=== PATIENT | male | born 1960 | race Caucasian/White ===

== ENCOUNTER 2019-02-17 17:35 | Inpatient (IN) ==
[~2019-02-17 17:35] MED LIST: *HR* Magnesium Sulfate 2 GM/50 ML PIGGYBACK IVPB ONE; *HR* Norepinephrine 4 MG/4 ML VIAL IVC ONE; D5% in Water 250 ML IV BAG IV ONE; Lidocaine 2% Syringe 100 MG/5 ML IV ONE
[2019-02-17] MEDS ORDERED: Aspirin 81 MG TAB.CHEW ONE (18:04)
[2019-02-17] MEDS ORDERED: *HR* Heparin 5,000 UNIT/ML VIAL ONE (18:04)
[2019-02-17] MEDS ORDERED: *HR* Ticagrelor 90 MG TABLET ONE (18:04)
[2019-02-17] MEDS ORDERED: 0.9 % Sodium Chloride 1,000 ML ONE ×2 (18:05→23:07)
[2019-02-17] MEDS ORDERED: Heparin 1,000 UNITS/500 mL 500 ML ONE (18:16)
[2019-02-17] MEDS ORDERED: 0.9 % Sodium Chloride 2,000 ML ONE (18:16)
[2019-02-17] MEDS ORDERED: Iopamidol 125 ML INFUS..BTL ONE (18:17)
[2019-02-17] MEDS ORDERED: Nitroglycerin 1,000 MCG/10 ML VIAL IV ONE (18:17)
[2019-02-17] MEDS ORDERED: *HR* Heparin 10,000 UNIT/10 ML VIAL ONE (18:17)
[2019-02-17] MEDS ORDERED: *HR* Ticagrelor 90 MG TABLET PO ONE (18:20)
[2019-02-17] MEDS ORDERED: *HR* Heparin 5,000 UNIT/ML VIAL IVP PRN ×2 (18:20)
[2019-02-17] MEDS ORDERED: *HR* Heparin 5,000 UNIT/ML VIAL IVP ONE (18:20)
--- NOTE | 2019-02-17 18:23 | Emergency Department Note ---
Disposition Clinical Impression: ST elevation myocardial infarction (STEMI) Qualifiers: Involved coronary artery: right coronary artery Qualified Code(s): I21.11 - ST elevation (STEMI) myocardial infarction involving right coronary artery Disposition: Admitted As Inpatient Condition: Serious Time of Disposition: 18:25 General Adult HPI - General Chief complaint: ED Chest Pain Stated complaint: Chest Pressure Time Seen by Provider: 02/17/19 18:11 Source: patient Mode of arrival: private vehicle Limitations: no limitations Nursing Notes Reviewed: Yes Vital Signs Reviewed: Yes - History of Present Illness HPI Narrative: 58-year-old male with a past medical history of diabetes, hypertension, hyperlipidemia that states he started to have chest pain starting when he woke up this morning at 10:30 in the morning. He states it did not wake him from sleep he noticed it when he woke up. He describes the pain as bilateral chest pain in the upper part of his chest with radiation into his left arm. Patient states he then went to work. While he was at work coworkers report that he has passed out approximately 4 times. Patient also reports some nausea and some lightheadedness. He also describes some episodes of diaphoresis. Patient has never had a heart attack before. Patient does have a history of a stroke in 2012. gave him [address] to the hospital. Patient states his chest was about 5 out of 10 in severity, but states that his pain seems to have gotten better since he has been here. Pain Scale: 0 - Related Data Home Medications Medication Instructions Recorded Confirmed Amlodipine Besylate 10 mg PO DAILY 02/17/19 02/17/19 Aspirin [Lo-Dose Aspirin EC] 81 mg PO DAILY 02/17/19 02/17/19 Cinnamon Bark [Cinnamon] 500 mg PO DAILY 02/17/19 02/17/19 Dapagliflozin Propanediol [Farxiga] 5 mg PO DAILY 02/17/19 02/17/19 Dulaglutide [Trulicity] 1.5 mg SQ MO 02/17/19 02/17/19 Losartan Potassium 50 - 100 mg PO DAILY 02/17/19 02/17/19 Metformin HCl [Metformin HCl ER] 1,000 mg PO DAILY 02/17/19 02/17/19 Metoprolol Succinate [Toprol Xl] 25 mg PO DAILY 02/17/19 02/17/19 [place]-3/Dha/Epa/Fish Oil [Fish Oil 1 cap PO DAILY 02/17/19 02/17/19 1,000 mg Softgel] Rosuvastatin Calcium 10 mg PO HS 02/17/19 02/17/19 Allergies Allergy/AdvReac Type Severity Reaction Status Date / Time No Known Allergies Allergy Verified 02/17/19 21:13 Review of Systems: In addition to that documented in the HPI above, the additional ROS was obtained: Constitutional: Denies fevers or chills Eyes: Denies vision changes ENMT: Denies sore throat CV: Reports chest pain Resp: Reports SOB GI: Denies vomiting or diarrhea Reports nausea : Denies painful urination MSK: Denies recent trauma Skin: Denies new rashes Neuro: Denies new numbness or tingling or weakness Reports lightheadedness Endocrine: Denies unexpected weight loss Heme: Denies bleeding disorders Past Medical History - Past Medical History Attestation: Yes The following information was validated with the patient. Medical history: Reports: CVA, diabetes, hyperlipidemia, hypertension - Social History Smoking Status: Never smoker Alcohol use: Reports: none Drug use: Reports: none Physical Exam General: No acute distress. Well developed, well nourished. Head: atraumatic, normocephalic. ENT: No conjunctival injection, no scleral icterus. PERRLA. EOMI. Oropharynx non- erythematous. mucous membranes moist. Neuro: No focal deficits, no speech deficit, no facial droop, mentating well. BUE/BLE Str 5/5. Pulm: Lungs CTAB A/P. No wheezes, rales, ronchi. Cardio: RRR no m/r/g. Chest not tender to palpation. Abd: Soft, non-distended. Normoactive bowel sounds. Non-tender to palpation. No guarding. Non rigid. Extremities: Radial pulses 2+ giacomo, dorsalis pedis/posterior tibialis 2+ giacomo. No LE edema. No cyanosis, clubbing. Skin: warm, dry, intact. No rashes. Psych: Appropriate mood and affect. Answers questions appropriately. Cooperative with exam. - General Limitations: no limitations General appearance: alert Course Vital Signs Temperature 98 F 02/17/19 17:53 Pulse Rate 87 02/17/19 17:53 Respiratory Rate 18 02/17/19 17:53 Blood Pressure 156/80 02/17/19 17:53 O2 Sat by Pulse Oximetry 99 02/17/19 17:53 Temperature 98.3 F 02/17/19 23:20 Pulse Rate 68 02/18/19 00:45 Respiratory Rate 21 02/18/19 00:45 Blood Pressure 119/71 02/18/19 00:45 O2 Sat by Pulse Oximetry 127 02/18/19 00:45 Oxygen Delivery Oxygen Delivery Room Air Medical Decision Making - MDM Narrative Medical decision making narrative: 58-year-old male with past medical history of high cholesterol, hypertension, previous CVA that reports chest pain that started when he woke up this morning at 10:30 in the morning. He reports 4 episodes of syncope throughout the day. EKG is concerning for inferior ST elevation SD. STEMI alert was called and Special Education Paraprofessional was activated. I spoke with Dr. Summers who agreed to come in and evaluate the patient for stenting. Patient received 2 aspirin en route to the hospital, he was given 2 additional baby aspirin, he was given Brlinta, heparin. Nitrogly cerin was specifically avoided. Patient was taken emergently to the Special Education Paraprofessional. He remained stable while in the department. - Medical Records Medical records reviewed: Yes I reviewed the patient's medical records. - Lab Data Lab results reviewed: Yes I reviewed the patient's lab results. Result diagrams: 02/17/19 17:53 02/17/19 17:53 Lab Results 02/17/19 02/17/19 02/17/19 Range/Units 17:53 17:53 17:53 WBC 9.6 (4.3-11.1) K/mcL RBC 4.91 (4.19-5.50) M/mcL Hgb 13.4 (12.9-16.9) g/dL Hct 40.7 (37.5-50.1) % MCV 82.9 L (83.0-100.0) fL MCH 27.3 L (28.0-33.3) pg MCHC 32.9 (31.6-35.5) g/dL RDW 12.7 (11.5-14.5) % Plt Count 272 (140-400) K/mcL MPV 11.2 (9.4-12.4) fL Immature Gran % 0.3 (0-4) % Seg Neutrophils % 77.3 % Lymphocytes % 14.3 % Monocytes % 6.6 % Eosinophils % 1.1 % Basophils % 0.4 % Neutrophils # 7.4 (1.6-8.9) K/mcL Lymphocytes # 1.4 (0.6-4.6) K/mcL Monocytes # 0.6 (0.0-1.3) K/mcL Eosinophils # 0.1 (0.0-0.6) K/mcL Basophils # 0.0 (0.0-0.2) K/mcL PT 11.9 (9.4-12.1) Seconds INR 1.0 APTT 31.7 (26.0-36.0) Seconds Sodium 137 (136-145) mEq/L Potassium 3.3 L (3.5-5.1) mEq/L Chloride 105 (98-107) mEq/L Carbon Dioxide 25 (23-29) mEq/L BUN 24 H (6-20) mg/dL Creatinine 1.04 (0.70-1.30) mg/dL Est GFR ( Amer) > 60 (> 60) Est GFR (Non-Af Amer) > 60 (> 60) BUN/Creatinine Ratio 23 (6-26) Glucose 223 H (70-105) mg/dL Calculated Osmolality 295 (280-300) Calcium 9.5 (8.6-10.3) mg/dL Magnesium 1.9 (1.6-2.6) mg/dL Troponin I 0.03 (< 0.04) ng/mL - EKG Data EKG #1 EKG attestation: Yes I reviewed and interpreted this EKG. EKG results narrative: 1748: Heart rate 82, rhythm sinus, axis normal. W[place] 170, QRS 1:30 and prolonged, QTc 463. RSR pattern in lead V1 and V2 with prolongation of QRS is consistent with right bundle branch block. ST segment elevation in 2, 3, aVF with ST depression in lead 1, aVL. This is consistent with STEMI and was called as a STEMI with activation of the laboratory manager. Attestation Statement - Attestation Attestation: I, Junior Landaverde, examined this patient and my medical decision-making was reviewed with the PERSONAL FINANCIAL ADVISOR/PA/Advanced Practice Nurse/Resident Physician. I agree with the documented findings, disposition and treatment plan as described except to the extent set forth below. 58-year-old male presents emergency Department with concerns of an acute onset chest pain. Patient states his pain is worse with exertion, he reports syncopized prior to arrival. He reports associated nausea and diaphoresis. EKG shows likely inferior STEMI. STEMI alert was initiated. I reviewed the EKG with the resident and agree with the interpretation. Delay in interventional cardiology response to the STEMI alert was noted. Patient was given aspirin, Brillinta, heparin 4 STEMI and he will be taken to the Special Education Paraprofessional for further care and evaluation.
[2019-02-17] MEDS ORDERED: Aspirin 81 MG TAB.CHEW PO ONE (18:27)
[2019-02-17] MEDS: 0.9 % Sodium Chloride 1,000 ML IVC SCH (18:29)
[2019-02-17 18:32] LABS: Basophils % 0.4 %; Eosinophils # 0.1 K/mcL (0.0-0.6); Eosinophils % 1.1 %; Hematocrit 40.7 % (37.5-50.1); Hemoglobin 13.4 g/dL (12.9-16.9); Immature Granulocytes % 0.3 % (0-4); Lymphocytes # 1.4 K/mcL (0.6-4.6); Lymphocytes % 14.3 %; Mean Corpuscular HGB Conc 32.9 g/dL (31.6-35.5); Mean Corpuscular Hemoglobin 27.3 pg (28.0-33.3); Mean Corpuscular Volume 82.9 fL (83.0-100.0); Mean Platelet Volume 11.2 fL (9.4-12.4); Monocytes # 0.6 K/mcL (0.0-1.3); Monocytes % 6.6 %; Neutrophils # 7.4 K/mcL (1.6-8.9); Platelet Count 272 K/mcL (140-400); Red Blood Count 4.91 M/mcL (4.19-5.50); Red Cell Distribution Width 12.7 % (11.5-14.5); Segmented Neutrophils % 77.3 %; White Blood Count 9.6 K/mcL (4.3-11.1)
[2019-02-17 18:41] LABS: Prothrombin Time 11.9 Seconds (9.4-12.1)
[2019-02-17] MEDS ORDERED: *HR* Atropine Sulfate 1 MG/10 ML SYRINGE ONE ×3 (18:43→23:07)
[2019-02-17 18:44] LABS: Activated Partial Thrombo Time 31.7 Seconds (26.0-36.0)
[2019-02-17] MEDS ORDERED: *HR* FentaNYL (PF) 100 MCG/2 ML VIAL ONE (18:50)
[2019-02-17] MEDS ORDERED: *HR* Midazolam HCl 2 MG/2 ML VIAL ONE ×2 (18:50→19:00)
[2019-02-17 18:54] LABS: BUN/Creatinine Ratio 23 (6-26); Blood Urea Nitrogen 24 mg/dL (6-20); Calcium 9.5 mg/dL (8.6-10.3); Carbon Dioxide 25 mEq/L (23-29); Chloride 105 mEq/L (98-107); Glucose 223 mg/dL (70-105); Magnesium 1.9 mg/dL (1.6-2.6); Osmolality,Calculated 295 (280-300); Potassium 3.3 mEq/L (3.5-5.1); Sodium 137 mEq/L (136-145); Troponin I 0.03 ng/mL (< 0.04); eGFR For African Americans > 60 (> 60); eGFR For Non-African Americans > 60 (> 60)
[2019-02-17] MEDS ORDERED: Tirofiban 12.5 MG/250ML 12.5 MG/250 ML BAG ONE (19:07)
--- NOTE | 2019-02-17 20:04 | Cardiology History & Physical ---
Date of Encounter: 02/17/19 Time of Encounter: 18:45 Assessment and Plan (1) Acute ST elevation myocardial infarction (STEMI) of inferior wall Current Visit: Yes Status: Acute Acute. Emergent cardiac catheterization. The assessment and plan as outlined above was discussed with the patient and/or family members who expressed understanding and agreement. All questions were answered. (2) Diabetes mellitus Current Visit: Yes Status: Acute Chronic. Hospitalist consultation. The assessment and plan as outlined above was discussed with the patient and/or family members who expressed understanding and agreement. All questions were answered. 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 The assessment and plan as outlined above was discussed with the patient and/or family members who expressed understanding and agreement. All questions were answered. Qualifiers: Hypertension type: essential hypertension Qualified Code(s): I10 - Essential (primary) hypertension (4) Hyperlipidemia Current Visit: Yes Status: Chronic Chronic. Check lipids. The assessment and plan as outlined above was discussed with the patient and/or family members who expressed understanding and agreement. All questions were answered. Qualifiers: Hyperlipidemia type: mixed hyperlipidemia Qualified Code(s): E78.2 - Mixed hyperlipidemia History of Present Illness Chief complaint: Chest pain HPI: Mr. Wilde is a 58 year old male with past medical history of diabetes mellitus, hypertension and dyslipidemia who presented with complaints of chest discomfort. He describes onset of chest heaviness around 10:30 this morning. He describes it as a ton of bricks. He had associated diaphoresis. He went to work around 3 PM. He apparently passed out. He was brought to the emergency room ECG was consistent with acute inferior wall STEMI. He denies any prior complaints chest discomfort. Past Med Surg Social Fam HX - Past Medical History Medical history: CVA, diabetes, hyperlipidemia, hypertension - Social History Smoking Status: Never smoker Alcohol use: none Drug use: none Medications and Allergies Allergy/AdvReac Type Severity Reaction Status Date / Time No Known Allergies Allergy Verified 02/17/19 18:00 All Systems Review: The remainder of the systems were reviewed and are negative - Cardiovascular Cardiovascular: as per HPI Physical Examination Vital Signs, Last 4 Hours Temp Pulse Resp BP Pulse Ox 02/17/19 18:30 91 18 128/81 99 02/17/19 18:23 80 18 130/75 98 02/17/19 18:13 85 18 130/83 99 02/17/19 17:59 82 18 135/72 99 02/17/19 17:53 98 F 87 18 156/80 99 General: Conversant, No Apparent Distress HEENT: Atraumatic, Normocephaly, Mucus Membranes Moist Neck: No JVD, Normal carotid pulses Cardiac: Reg Rate and Rhythm, Normal S1 and S2, No Murmur Lungs: Normal Breath Sounds, No Wheeze, Rales, Rhonchi Neuro: Alert and responsive, No focal deficits noted Abdomen: Soft, Non-Tender Musculoskeletal: No Chest Wall Tenderness Extremities: No Clubbing, No Cyanosis, No Edema, Normal Pulses Results 02/17/19 17:53 02/17/19 17:53 Lab Results 02/17/19 02/17/19 02/17/19 17:53 17:53 17:53 WBC 9.6 Hgb 13.4 Hct 40.7 Plt Count 272 INR 1.0 APTT 31.7 Sodium 137 Potassium 3.3 L Chloride 105 Carbon Dioxide 25 BUN 24 H Creatinine 1.04 Glucose 223 H Calcium 9.5 Magnesium 1.9 Troponin I 0.03 - EKG Interpretation EKG results cardiology: personally reviewed, sinus rhythm (Sinus rhythm, ST elevation in lead 2, lead 3, lead aVF consistent with inferior STEMI) [facility] - Classification Classification: Class 4
--- NOTE | 2019-02-17 20:19 | Invasive Diagnostic Lab Proc ---
Name: Caesar Wilde Date of Study: 02/17/2019 Date: 1960 Ht: 68.1in Medical Record#: [id number] Age: 58 Wt: 250.00lb Gender: Male BSA: 2.25 Order #: [id number] BMI: 37.89 Physicians Procedure Physician: Caesar Summers MD Referring MD: Referring MD: Staff Name Position Time In Abigail, Francisco RN Monitor 06:35 PM Jasmien Benitez RN Doorperson 06:35 PM Rafa Jimenez RT (R) Scrub 06:35 PM Indications Indication STEMI Procedures Performed Procedure L HRT ARTERY/VENTRICLE ANGIO PRQ CARD REVASC KS 1 VSL Pre-Procedure Checklist Informed consent is complete signed and on chart. H&P is on chart. ID band is on and ID verified with patient. Patient NPO for procedure The procedure was described for the patient and questions were answered. Blood Pressure: 134/75 ECG is on chart. Rhythm: NSR Plan of Care Patient will tolerate the procedure without complications. Adequate level of comfort will be maintained. Hemodynamics will remain stable Patient will recover from procedure without complications. Respiratory function will be maintained. Cardiac rhythm will remain stable. Patient temperature will be maintained. Patient and/or family have verbalized understanding of the procedure. Patient Education Chief Complaint/Reason for Test: Cardiac Cath Developmental Category: Adult (18-64 years) Developmentally Appropriate for Age: Yes Learning Barriers: None Education Needs: Procedure Education Method: Verbal Information Taught: Cardiac Cath Educational Evaluation: Able to repeat information Intravenous Access Time IV Size Location DC'd Fluid/Drip Rate Units RN 18g 1 1/4" Patent On Arrival Rt Arm Jasmine Benitez RN 20g 1 1/4" Patent On Arrival Lt Arm 0.9NaCl Jasmine Benitez RN Allergies NO KNOWN ALLERGIES Vital Signs Time BP (mmHg) HR (bpm) O2 Sat. RR (bpm) LOC 06:42 PM / % 5 = Fully awake and oriented or at pre-proc level 06:42 PM / % 4 = Oriented but drowsy 06:58 PM / % 4 = Oriented but drowsy 07:14 PM / % 4 = Oriented but drowsy 06:44 PM 154 / 97 86 100 % 23 06:49 PM 152 / 91 82 100 % 26 06:54 PM 142 / 92 88 97 % 18 06:59 PM 137 / 93 91 97 % 20 07:04 PM 138 / 94 97 98 % 15 07:10 PM 122 / 84 105 93 % 16 07:14 PM 122 / 83 99 97 % 17 07:19 PM 119 / 80 97 99 % 18 07:24 PM 121 / 81 95 99 % 11 07:29 PM 127 / 87 96 100 % 15 07:34 PM 133 / 87 97 100 % Procedural Medications Time Medication Dose Units Method Given By 06:42 PM Oxygen 2 L/min nasal cannula Francisco Hayes RN 06:49 PM Lidocaine 2% 18 ml Subcutaneous Caesar Summers MD 06:51 PM Versed 2 mg Intravenous Jasmine Benitez RN 06:51 PM Fentanyl 50 mcg Intravenous Jasmine Benitez RN 07:01 PM Versed 1 mg Intravenous Jasmine Benitez RN 07:01 PM Fentanyl 50 mcg Intravenous Jasmine Benitez RN 07:01 PM Heparin 4000 units Intravenous Jasmine Benitez RN 07:03 PM Oxygen 4 L/min nasal cannula Jasmine Benitez RN 07:07 PM Aggrastat Bolus: 58 ml Intravenous Jasmine Benitez RN 07:09 PM Aggrastat 12.5mg/250ml 21 ml/hr Intravenous Jasmine Benitez RN 07:09 PM Atropine 1 mg Intravenous Jasmine Benitez RN ASA Classification: Emergent Procedure: ASA score is assumed Leo Score Preprocedure Postprocedure Activity 2- Moves 4 extremities sustained head lift Activity 2- Moves 4 extremities sustained head lift Circulation 2- SBP +/= 20 points of pre-anesthetic level Circulation 2- SBP +/= 20 points of pre-anesthetic level Consciousness 2- Awake and alert oriented x 3 Consciousness 2- Awake and alert oriented x 3 O2 Saturation 2- Able to maintain O2 satruation of 92% on room air O2 Saturation 2- Able to maintain O2 satruation of 92% on room air Respiratory 2- Able to deep breathe and cough well Respiratory 2- Able to deep breathe and cough well Total Score 10 Total Score 10 Contrast Agent: Isovue Diagnostic Contrast: 107 ml Total Contrast: 107 ml Fluoro Dose: 99 mGy Activated Clotting Time Time Seconds to Clot 07:00 PM 178 07:36 PM 07:36 PM 07:36 PM 07:36 PM 07:36 PM 07:36 PM 07:36 PM 07:36 PM 07:36 PM 07:36 PM 07:36 PM 07:36 PM 07:36 PM 07:36 PM 07:36 PM 07:36 PM 07:36 PM 07:36 PM 07:36 PM 07:36 PM 07:36 PM 07:36 PM 07:36 PM 07:36 PM 07:36 PM 07:36 PM 07:36 PM 07:36 PM 07:36 PM 07:36 PM 07:36 PM 07:36 PM 07:36 PM 07:36 PM 07:36 PM 07:36 PM 07:36 PM 07:36 PM 07:36 PM 07:36 PM 07:36 PM 07:36 PM 07:36 PM 07:36 PM 07:36 PM 07:36 PM 07:36 PM 07:36 PM 07:36 PM 07:36 PM 07:36 PM 07:36 PM 07:36 PM 07:36 PM 07:36 PM 07:36 PM 07:36 PM 07:36 PM 07:36 PM 07:36 PM 07:36 PM 07:36 PM 07:36 PM 07:36 PM 07:36 PM 07:36 PM 07:36 PM 07:36 PM 07:36 PM 07:36 PM 07:36 PM 07:36 PM 07:36 PM 07:36 PM 07:36 PM 07:36 PM 07:36 PM 07:36 PM 07:36 PM 07:36 PM 07:36 PM 07:36 PM 07:36 PM 07:36 PM 07:36 PM 07:36 PM 07:36 PM 07:36 PM 07:36 PM 07:36 PM 07:36 PM 07:36 PM 07:36 PM 07:36 PM 07:36 PM 07:36 PM 07:36 PM 07:36 PM 07:36 PM 07:36 PM 07:36 PM 07:36 PM 07:36 PM 07:36 PM 07:36 PM 07:36 PM 07:36 PM 07:36 PM 07:36 PM 07:36 PM 07:36 PM 07:36 PM 07:36 PM 07:36 PM 07:36 PM 07:36 PM 07:36 PM 07:36 PM 07:36 PM 07:36 PM 07:36 PM 07:36 PM 07:36 PM 07:36 PM 07:36 PM 07:36 PM 07:36 PM 07:36 PM 07:36 PM 07:36 PM 07:36 PM 07:36 PM 07:36 PM 07:36 PM 07:36 PM 07:36 PM 07:36 PM 07:36 PM 07:36 PM 07:36 PM 07:36 PM 07:36 PM 07:36 PM 07:36 PM 07:36 PM 07:36 PM 07:36 PM 07:36 PM 07:36 PM 07:36 PM 07:36 PM 07:36 PM 07:36 PM 07:36 PM 07:36 PM 07:36 PM 07:36 PM 07:36 PM 07:36 PM 07:36 PM 07:36 PM 07:36 PM 07:36 PM 07:36 PM 07:36 PM 07:36 PM 07:36 PM 07:36 PM 07:36 PM 07:36 PM 07:36 PM 07:36 PM 07:36 PM 07:36 PM 07:36 PM 07:36 PM 07:36 PM 07:36 PM 07:36 PM 07:36 PM 07:36 PM 07:36 PM 07:36 PM 07:36 PM 07:36 PM 07:36 PM 07:36 PM 07:36 PM 07:36 PM 07:36 PM 07:36 PM 07:36 PM 07:36 PM 07:36 PM 07:36 PM 07:36 PM 07:36 PM 07:36 PM 07:36 PM 07:36 PM 07:36 PM 07:36 PM 07:36 PM 07:36 PM 07:36 PM 07:36 PM 07:36 PM 07:36 PM 07:36 PM 07:36 PM 07:36 PM 07:36 PM 07:36 PM 07:36 PM 07:36 PM 07:36 PM 07:36 PM 07:36 PM 07:36 PM 07:36 PM 07:36 PM 07:36 PM 07:36 PM 07:36 PM 07:36 PM 07:36 PM 07:36 PM 07:36 PM 07:36 PM 07:36 PM 07:36 PM 07:36 PM 07:36 PM 07:36 PM 07:36 PM 07:36 PM 07:36 PM 07:36 PM 07:36 PM 07:36 PM 07:36 PM 07:36 PM 07:36 PM 07:36 PM 07:36 PM Procedure Log Time Note Enter By 06:35 PM 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 Informed consent was obtained. [facility] :42 PM Procedure start 18:42 [facility] :42 PM Time: 18:42 Oxygen on at 2 L/min per nasal cannula by Francisco Hayes RN [facility] :42 PM Time: 18:42LOC: 5 = Fully awake and oriented or at pre-proc level [facility] 06:43 PM Time: 18:43 Patient comfortable and pain free: Yes [facility] PM CathStat 06:43 PM Vitals capture started with the following parameters, Patient=Adult, Interval=5 min, Initial Acjuygqz=440 mmHg, Deflation Rate=3 mmHg, Cuff placed on Right Arm 06:44 PM Pressure channel 1 zeroed. 06:44 PM Recorded ECG: WN=213 Condition=Condition 1 06:44 PM HR=86 bpm, KXAZ=221/97 mmhg, UfH9=425.0 %, Resp=23 B/min, Comment=nsr 06:49 PM HR=82 bpm, KPTH=714/91 mmhg, MgJ2=909.0 %, Resp=26 B/min, Comment=nsr 06:49 PM Time out was performed according to hospital policy. Conscious sedation and anesthesia was achieved (see medication log with in this report above) [facility] 06:50 PM Time: 18:49 18 ml Lidocaine 2% to right groin Subcutaneous Given by [facility] Summers [facility] 06[facility]51 PM Micro-Introducer Kit utilized for sheath placement [facility] 06:51 PM Time: 18:51 Versed 2 mg Intravenous Given by Jasmine Benitez RN naya 06:51 PM Time: 18:51 Fentanyl 50 mcg Intravenous Given by Jasmine Benitez RN [facility] 06:54 PM HR=88 bpm, GYSU=407/92 mmhg, SpO2=97.0 %, Resp=18 B/min, Comment=nsr 06:56 PM .014 Amplatz SuperStiff 180cm guide wire across target lesion- successful. reused? No [email or web address] 06:56 PM Inflation device was opened. [email or web address] 06:56 PM wire removed [email or web address] 06:57 PM 0.035 180cm Glidewire-Stiff shaft wire [id number] jcallihan 06:57 PM Access obtained by percutaneous puncture. 6Fr 10cm Terumo [place] sheath placed in right Femoral artery. [id number] jcallihan 06:57 PM j-wire re-inserted jcallihan 06:58 PM Time: 18:42LOC: 4 = Oriented but drowsy jcallihan 06:58 PM Time: 18:43 Patient comfortable and pain free: Yes [email or web address] 06:58 PM 5Fr FL 4 catheter inserted over the wire DNC jcallihan 06:58 PM LCA angiography performed in multiple views. [email or web address] 06:58 PM Recorded Pressure: Ao, HR=90, Condition=Condition 1 (Aorta) Ao 105/80/93 06:59 PM HR=91 bpm, UPDI=674/93 mmhg, SpO2=97.0 %, Resp=20 B/min, Comment=nsr 06:59 PM Catheter removed jcallihan 07:00 PM At 19:00 the ACT was 178 seconds. [email or web address] 07:01 PM 6Fr JR 4 SH Runway guide catheter was used to cannulate the PCI vessel successfully. reused? No [email or web address] 07:01 PM RCA angiography performed in multiple views. [email or web address] 07:01 PM Time: 19:01 Versed 1 mg Intravenous Given by Jasmine Benitez RN 07:01 PM Time: 19:01 Fentanyl 50 mcg Intravenous Given by Jasmine Benitez RN 07:02 PM Time: 19:01 Heparin 4000 units Intravenous Given by Jasmine Benitez RN 07:03 PM Time: 19:03 Oxygen on at 4 L/min per nasal cannula by Jasmine Benitez RN 07:03 PM Recorded Pressure: Ao, IT=455, Condition=Condition 1 (Aorta) Ao 114/74/93 07:03 PM RCA angiography performed in multiple views. [email or web address] 07:03 PM Guide catheter removed intact. jcallihan 07:04 PM did not engage well. jcallihan 07:04 PM HR=97 bpm, IYIH=924/94 mmhg, SpO2=98.0 %, Resp=15 B/min, Comment=nsr 07:04 PM 6Fr AL1 Runway guide catheter was used to cannulate the PCI vessel successfully. reused? No jcallihan 07:06 PM .014 PT Graphix 182cm guide wire across target lesion- successful. reused? No jcallihan 07:06 PM 2.5 mm x 15 mm Emerge Monorail balloon across target lesion- successful. reused? No jcallihan 07:07 PM Balloon inflated @ 14 dong for 10 seconds [email or web address] 07:07 PM Balloon inflated @ 14 dong for 6 seconds [facility] 07:09 PM Time: 19:07 Aggrastat Bolus: 58 ml Intravenous Given by Jasmine Benitez RN Weinstein pump [facility] 07:09 PM Time: 19:09 Aggrastat 12.5mg/250ml 21 ml/hr Intravenous Given by Jasmine Benitez RN Weinstein pump [email or web address] 07:09 PM Time: 19:09 Atropine 1 mg Intravenous Given by Jasmine Benitez RN [facility] 07:10 PM Recorded Pressure: Ao, HH=486, Condition=Condition 1 (Aorta) Ao 90/64/77 07:10 PM TD=108 bpm, IRFL=610/84 mmhg, SpO2=93.0 %, Resp=16 B/min, Comment=st 07:11 PM Balloon catheter removed intact. [email or web address] 07:11 PM PCI Status Emergency [email or web address] 07:11 PM PCI lesion in Proximal RCA. Pre Stenosis: 100 Pre DANIEL Flow: 0: No Flow/No perfusion jcallihan 07:14 PM Time: 18:58LOC: 4 = Oriented but drowsy jcallihan 07:14 PM HR=99 bpm, HLSB=382/83 mmhg, SpO2=97.0 %, Resp=17 B/min 07:14 PM Time: 18:58 Patient comfortable and pain free: Yes [email or web address] 07:15 PM 3.5mm x 38mm Synergy drug-eluting stent across target lesion- successful Lot #[id number] jcallihan 07:17 PM Recorded Pressure: Ao, HR=96, Condition=Condition 1 (Aorta) Ao 86/72/80 07:17 PM Stent deployed @ 16 dong for 14 seconds [email or web address] 07:18 PM Stent delivery system removed intact. [email or web address] 07:19 PM HR=97 bpm, ZNIV=014/80 mmhg, SpO2=99.0 %, Resp=18 B/min, Comment=nsr 07:19 PM 4.0 mm x 20mm NC Emerge balloon across target lesion- successful. reused? No jcallihan 07:20 PM Balloon inflated @ 12 dong for 6 seconds [email or web address] 07:20 PM Balloon inflated @ 12 dong for 8 seconds [email or web address] 07:21 PM Balloon inflated @ 16 dong for 16 seconds jcallihan 07:22 PM Balloon inflated @ 16 dong for 15 seconds jcallihan 07:22 PM Balloon catheter removed intact. jcallihan 07:22 PM Recorded Pressure: Ao, HR=97, Condition=Condition 1 (Aorta) Ao 94/71/83 07:24 PM HR=95 bpm, QKUD=167/81 mmhg, SpO2=99.0 %, Resp=11 B/min, Comment=nsr 07:24 PM Guide wire removed intact. allihan 07:26 PM Pressure channel 1 zeroed. 07:27 PM Recorded Pressure: LV, HR=99, Condition=Condition 1 (Left Ventricle) LV 114/-4/3 07:27 PM Recorded Pressure: LV, Ao, HR=98, Condition=Condition 1 (Left Ventricle) LV 111/3/6, (Aorta) Ao 109/70/88 07:28 PM Recorded Pressure: Ao, HR=97, Condition=Condition 1 (Aorta) Ao 116/65/85 07:28 PM Guide catheter removed intact. [email or web address] 07:29 PM HR=96 bpm, HCWX=557/87 mmhg, MkS6=259.0 %, Resp=15 B/min 07:29 PM Time: 19:14 Patient comfortable and pain free: Yes [email or web address] 07:29 PM Time: 19:14LOC: 4 = Oriented but drowsy jcallihan 07:29 PM 5Fr Pigtail catheter inserted over the wire DNC jcallihan 07:30 PM Catheter crossed the aortic valve and was selectively placed in the left ventricle. Pressures recorded on pullback for left heart catheterization. [email or web address] 07:30 PM Bolus angiogram of left Ventricle complete: 12 ml/sec for a total of 30 mls jcallihan 07:31 PM Catheter removed jcallihan 07:31 PM Bolus angiogram of right Femoral complete: 4 ml/sec for a total of 7 mls jcallihan 07:31 PM Wire removed jcallihan 07:31 PM Coronary Dominance: right jcallihan 07:31 PM Procedure completed at 19:31 02/17/2019 jcallihan 07:31 PM Did you address DANIEL flow and Dominance? YesCoronary Dominance: right [email or web address] 07:32 PM Sign out completed: Radiation Dose 752.62 mGy, 99 Gy/cm2 Fluoro Time: 10.9 Isovue 370 - 200ml contrast 107 ml given by Caesar Summers MD. Complications: None. 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 Sedation minutes 50. Cardiac Rehab Consult needed: Yes. Confirmed administered medications: Yes [email or web address] 07:34 PM HR=97 bpm, LYQW=149/87 mmhg, LoG1=819.0 %, Comment=nsr 07:34 PM Isovue 370 - 150ml,2 Bottle(s) used. jcallihan 07:34 PM Sheath left in place to be pulled on floor/holding areaV+Pad jcallihan 07:34 PM Estimated Blood Loss: less than 50cc jcallihan 07:34 PM Post ECG NSR jcallihan 07:34 PM Post Blood Pressure 133/87 jcallihan 07:34 PM 19:34 Post Pulses Bilateral DP & PT 2+ jcallihan 07:35 PM Information taught Cardiac Cath, PCI, and GAS OPERATOR/Stent jcallihan 07:35 PM Education needs Procedure, Plan of Care, and Responsibilities of Patient in Care jcallihan 07:35 PM Learning barriers :None jcallihan 07:35 PM Education Methods Verbal jcallihan 07:35 PM Education evaluation Able to repeat information jcallihan 07:35 PM Site status No bleeding/ No Hematoma - Rt Groin as reported by Rafa Jimenez RT (R) at 19:35 jcallihan 07:35 PM Opsite applied jcallihan 07:35 PM Plavix, Effient or Brilinta given Yes jcallihan 07:36 PM Patient out of room: 19:35 jcallihan 07:36 PM Family placed in the consult room. [email or web address] 07:36 PM Complications: None jcallihan 07:45 PM Report given to Amado HERRMANN Pt taken to ICU Room #2. 19:45 [email or web address] 08:02 PM Lesion found in Distal RCA. Pre Stenosis: 70 Pre DANIEL Flow: [email or web address] 08:02 PM Lesion found in Right PDA. Pre Stenosis: 100 Pre DANIEL Flow: jcallihan 08:02 PM Lesion found in Mid LAD. Pre Stenosis: 90 Pre DANIEL Flow: jcallihan 08:02 PM Lesion found in Distal LAD. Pre Stenosis: 50 Pre DANIEL Flow: jcallihan 08:02 PM Lesion found in 1st Marginal. Pre Stenosis: 90 Pre DANIEL Flow: jcallihan Complications Complication None None None Hemodynamics Pressures Site Systolic/A Wave Diastolic/V Wave Mean AO 105 80 93 AO 114 74 93 AO 90 64 77 AO 86 72 80 AO 94 71 83 LV 114 -4 3 LV 111 3 6 AO 109 70 88 AO 116 65 85 Post Procedure Information Blood Pressure: 133/87 mmHg Rhythm: NSR Post procedural instructions were given Closure Device Time Device Success/Fail Manual Compression Site Checks Time Location Status Staff Sheath In? Note 07:35 PM Rt Groin No bleeding/ No Hematoma Rafa Jimenez RT (R) Pulses Time Site Pre-Procedure Post-Procedure Note Bilateral DP 2+ Bilateral radial 2+ 7:34:00 PM Bilateral DP & PT 2+ Updated by Francisco Hayes RN on 02/17/2019 8:13:05 PM electronically signed on 02/17/2019 8:13:34 PM with status of Final
--- NOTE | 2019-02-17 20:34 | Pre-Sedation Evaluation ---
Pre-sedation evaluation - Pre-sedation checklist Date of procedure: 02/17/19 Procedure: Emergent Cardiac catheterization Recent Vitals: Last Vital Signs Temp 98 F 02/17/19 17:53 Pulse 91 02/17/19 18:30 Resp 18 02/17/19 18:30 BP 128/81 02/17/19 18:30 Pulse Ox 99 02/17/19 18:30 H&P (including ROS) documented in medical record: Yes Previous reaction to sedatives/anesthetics: Unknown Dietary Status: unknown Airway Assessment: Patient can open mouth completely, TMJ function normal, Micrognathia (under-bite, receding chin) absent, Neck with adequate range of motion Dentition: poor dentition Possible difficult airway: No ASA Classification *see protocol: CLASS II-Mild systemic disease Plan of Care: Pt appropriate candidate for procedure/moderate/conscious sedation Cardiac Registry (Cardio Only) - Functional Capacity Functional Capacity: Unknown - Clincal Frailty Scale Clinical Frailty Scale: Managing Well
--- NOTE | 2019-02-17 20:39 | Procedure Note ---
Date of procedure: 02/17/19 Pre-op diagnosis: Acute inferior wall myocardial infarction Post-op diagnosis: same Procedure: LM-normal, LAD-90% mid, 50% distal with myocardial bridging; CX-normal, OM 1-90% proximal; RCA-100% proximal, 70% distal; RPDA 100% distal with left to right collaterals. LVEF 50% with mild inferior hypokinesis. PCI: RCA 100% to 0% proximal with a 3.5 mm x 38 mm Synergy SUKHI postdilated with a 4.0 mm noncompliant balloon. Impression: 1. Severe three-vessel CAD with occlusion of the RCA which was successfully revascularized with SUKHI 1. There is still 70% distal RCA stenosis. 2. Preserved LV systolic function. Plan: 1. Dual antiplatelet therapy. 2. ANTHONY inhibitor, beta rico, statin. 3. 2-D echo Doppler. 4. CV surgical consultation for revascularization opinion of the LAD, circumflex and distal RCA. Anesthesia: IV sedation Surgeon: Caesar Summers Was there an field administrative assistant present: No Estimated blood loss (cc): 40 Specimen: None Pathology: none sent Condition: stable Disposition: ICU
[2019-02-17] MEDS ORDERED: *HR* HYDROcodone/Acet 5/325 mg TABLET PO PRN (21:06)
[2019-02-17] MEDS ORDERED: Ondansetron 4 MG/2 ML VIAL IVP PRN (21:06)
[2019-02-17] MEDS: Tirofiban 12.5 MG/250ML 12.5 MG/250 ML BAG IVC SCH (21:56)
[2019-02-18 03:40] LABS: Basophils % 0.4 %; Eosinophils # 0.1 K/mcL (0.0-0.6); Eosinophils % 0.9 %; Hematocrit 35.2 % (37.5-50.1); Hemoglobin 11.7 g/dL (12.9-16.9); Immature Granulocytes % 0.3 % (0-4); Lymphocytes # 1.8 K/mcL (0.6-4.6); Lymphocytes % 18.5 %; Mean Corpuscular HGB Conc 33.2 g/dL (31.6-35.5); Mean Corpuscular Hemoglobin 28.1 pg (28.0-33.3); Mean Corpuscular Volume 84.4 fL (83.0-100.0); Mean Platelet Volume 10.7 fL (9.4-12.4); Monocytes % 10.1 %; Neutrophils # 6.8 K/mcL (1.6-8.9); Platelet Count 262 K/mcL (140-400); Red Blood Count 4.17 M/mcL (4.19-5.50); Red Cell Distribution Width 12.8 % (11.5-14.5); Segmented Neutrophils % 69.8 %; White Blood Count 9.7 K/mcL (4.3-11.1)
[2019-02-18] MEDS: 0.9 % Sodium Chloride 1,000 ML IVC SCH ×3 (04:00→19:46)
[2019-02-18 04:09] LABS: Alanine Aminotransferase 27 Units/L (7-52); Albumin 3.6 g/dL (3.5-5.7); Albumin/Globulin Ratio 1.2 (1.1-2.2); Alkaline Phosphatase 65 Units/L (34-104); Aspartate Amino Transferase 96 Units/L (13-39); BUN/Creatinine Ratio 26 (6-26); Bilirubin,Total 1.7 mg/dL (0.3-1.0); Blood Urea Nitrogen 22 mg/dL (6-20); Calcium 8.3 mg/dL (8.6-10.3); Carbon Dioxide 21 mEq/L (23-29); Chloride 110 mEq/L (98-107); Chol/HDL Ratio 3.3 (0-4.9); Cholesterol 107 mg/dL (< 200); Globulin 2.9 g/dL (2.4-3.5); Glucose 126 mg/dL (70-105); HDL Cholesterol 32 mg/dL (40-59); LDL Cholesterol,Calculated 55 mg/dL (0-99); Osmolality,Calculated 295 (280-300); Potassium 3.2 mEq/L (3.5-5.1); Sodium 140 mEq/L (136-145); Total Protein 6.5 g/dL (6.4-8.9); Triglycerides 102 mg/dL (< 150); Troponin I 41.04 ng/mL (< 0.04); eGFR For African Americans > 60 (> 60); eGFR For Non-African Americans > 60 (> 60)
[2019-02-18] MEDS: Heparin 25,000 UNIT/250 ML D5W 25,000 UNIT/250 ML IV.SOLN IVC SCH ×2 (07:01→19:46)
--- NOTE | 2019-02-18 07:18 | Internal Med History&Physical ---
Date of Encounter: 02/18/19 Time of Encounter: 07:15 Internal Medicine - H&P: HPI Admitted From: Emergency Dept Plans for Post Hospital Care: Home History of present illness: Mr. Wilde is a 58 year old male Past Med Surg Social Fam HX - Past Medical History Medical history: CVA, diabetes, hyperlipidemia, hypertension - Social History Smoking Status: Never smoker Alcohol use: none Drug use: none - Family History Father Hx Family Cancer: Yes Mother Hx Family Cancer: Yes Internal Medicine - H&P: Meds Amlodipine Besylate 10 mg PO DAILY 02/17/19 [History] Aspirin [Lo-Dose Aspirin EC] 81 mg PO DAILY 02/17/19 [History] Cinnamon Bark [Cinnamon] 500 mg PO DAILY 02/17/19 [History] Dapagliflozin Propanediol [Farxiga] 5 mg PO DAILY 02/17/19 [History] Dulaglutide [Trulicity] 1.5 mg SQ MO 02/17/19 [History] Losartan Potassium 50 - 100 mg PO DAILY 02/17/19 [History] Metformin HCl [Metformin HCl ER] 1,000 mg PO DAILY 02/17/19 [History] Metoprolol Succinate [Toprol Xl] 25 mg PO DAILY 02/17/19 [History] Moore-3/Dha/Epa/Fish Oil [Fish Oil 1,000 mg Softgel] 1 cap PO DAILY 02/17/19 [History] Rosuvastatin Calcium 10 mg PO HS 02/17/19 [History] Allergy/AdvReac Type Severity Reaction Status Date / Time No Known Allergies Allergy Verified 02/17/19 21:13 All Systems PM: A 10-system review of systems was performed and is negative for pertinent findings except as documented above in the HPI. - Constitutional Vitals: Temp Pulse Resp BP Pulse Ox 98.3 F 59 21 120/69 96 02/17/19 23:20 02/18/19 06:00 02/18/19 06:00 02/18/19 06:00 02/18/19 06:00 Internal Med - H&P Results - Labs CBC & Chem 7: 02/18/19 03:27 02/18/19 03:27 Labs: Short CBC 02/17/19 02/18/19 Range/Units 17:53 03:27 WBC 9.6 9.7 (4.3-11.1) K/mcL Hgb 13.4 11.7 L D (12.9-16.9) g/dL Hct 40.7 35.2 L (37.5-50.1) % Plt Count 272 262 (140-400) K/mcL Neutrophils # 7.4 6.8 (1.6-8.9) K/mcL BMP 02/17/19 02/18/19 17:53 03:27 Sodium 137 140 Potassium 3.3 L 3.2 L Chloride 105 110 H Carbon Dioxide 25 21 L BUN 24 H 22 H Creatinine 1.04 0.85 Glucose 223 H 126 H Calcium 9.5 8.3 L Cardiac Enzymes 02/17/19 02/18/19 Range/Units 17:53 03:27 Troponin I 0.03 41.04 H* (< 0.04) ng/mL Liver Function 02/18/19 Range/Units 03:27 Total Bilirubin 1.7 H (0.3-1.0) mg/dL AST 96 H (13-39) Units/L ALT 27 (7-52) Units/L Alkaline Phosphatase 65 (34-104) Units/L Albumin 3.6 (3.5-5.7) g/dL - Time Spent With Patient Total time spent is greater than 50% in coordination of care (as documented) at patient's floor/unit and/or counseling patient: - VTE Reasons for not Prescribing Prophylaxis: Not indicated-Anticoagulated or INR therapeutic
[2019-02-18] MEDS ORDERED: Perflutren Lipid Microsphere 1.3 ML in 0.9 % Sodium Chloride 8.7 ML IVP ONE (07:53)
[2019-02-18] MEDS ORDERED: Perflutren Lipid Microsphere 2 ML VIAL ONE (07:59)
[2019-02-18 08:30] LABS: Estimated Average Glucose 174 mg/dl
--- NOTE | 2019-02-18 08:52 | Cardiothoracic Consult Note ---
Date of Encounter: 02/18/19 Time of Encounter: 08:48 Assessment and Plan (1) ST elevation myocardial infarction (STEMI) Current Visit: Yes Status: Acute The assessment and plan as outlined above was discussed with the patient and/or family members who expressed understanding and agreement. All questions were answered. The patient has had a significant myocardial infarction. He was loaded with Brilinta and also was on Angiomax. Presently, he is chest pain-free on a heparin drip. Cardiac catheterization does reveal triple vessel disease with bypassable vessels. Echocardiogram results are pending. I will check a carotid duplex as the patient has a history of a stroke. Coronary artery bypass grafting was discussed with the patient. Risks include , infection, stroke, bleeding, myocardial infarction, clots around the heart, renal or res piratory failure, acute or chronic graft closure, phrenic nerve injury and sternal dehiscence. The patient is quite reluctant and is worried about paying his bills. He also has a daughter who will be homecoming [place] on March 04. I reviewed the films with cardiology and they and I feel that he should stay and have this done prior to discharge. I will ask social work to see him concerning his bills. I will check a carotid duplex because of his history of stroke. He will need to be off blood thinners for at least 5 days. He can be maintained on a heparin drip. I will come back this afternoon and talk with the patient and his girlfriend. Qualifiers: Involved coronary artery: right coronary artery Qualified Code(s): I21.11 - ST elevation (STEMI) myocardial infarction involving right coronary artery - History of Present Illness History of present illness: Mr. Wilde is a 58 year old male The patient is a 58-year-old gentleman who developed chest pain yesterday morning and had syncope at work. His troponin was positive at 41. Cardiac catheterization revealed 100% block of his right coronary artery. This was opened with a coated stent, but had a distal 70% lesion. He did receive a full load of Brilinta and has been on Angiomax overnight. The patient also had a 90% LAD lesion and a 90% first obtuse marginal branch of the circumflex lesion. All 3 vessels were graftable. Past medical history is notable for hypertension, diabetes on insulin and hyperlipidemia. He does have a history of a stroke in 2012 and says he has some residual that he notices when handwriting. Social history. He lives in [place] with his girlfriend of many years. Does not smoke and does not drink. Review of systems is notable for no saphenous vein varicosities or strippings. Past Med Surg Social Fam HX - Past Medical History Medical history: CVA, diabetes, hyperlipidemia, hypertension - Social History Smoking Status: Never smoker Alcohol use: none Drug use: none - Family History Father Hx Family Cancer: Yes Mother Hx Family Cancer: Yes Medications and Allergies Amlodipine Besylate 10 mg PO DAILY 02/17/19 [History] Aspirin [Lo-Dose Aspirin EC] 81 mg PO DAILY 02/17/19 [History] Cinnamon Bark [Cinnamon] 500 mg PO DAILY 02/17/19 [History] Dapagliflozin Propanediol [Farxiga] 5 mg PO DAILY 02/17/19 [History] Dulaglutide [Trulicity] 1.5 mg SQ MO 02/17/19 [History] Losartan Potassium 50 - 100 mg PO DAILY 02/17/19 [History] Metformin HCl [Metformin HCl ER] 1,000 mg PO DAILY 02/17/19 [History] Metoprolol Succinate [Toprol Xl] 25 mg PO DAILY 02/17/19 [History] [place]-3/Dha/Epa/Fish Oil [Fish Oil 1,000 mg Softgel] 1 cap PO DAILY 02/17/19 [History] Rosuvastatin Calcium 10 mg PO HS 02/17/19 [History] Allergy/AdvReac Type Severity Reaction Status Date / Time No Known Allergies Allergy Verified 02/17/19 21:13 All Systems Review: The remainder of the systems were reviewed and are negative Physical Examination Vital Signs, Last 4 Hours Temp Pulse Resp BP Pulse Ox 02/18/19 07:00 98.1 F 02/18/19 06:00 59 21 120/69 96 02/18/19 05:00 63 20 117/74 97 Pupils are equal, round and reactive to light and accommodation. His teeth are in poor repair. Neck is supple. Trachea in the midline. No thyromegaly or carotid bruits. Lungs are clear to percussion and auscultation. Heart is in a regular rate and rhythm. Abdomen is benign. No tenderness, rebound or guarding. Extremities without edema. No saphenous vein varicosities or strippings. Cranial nerves, motor and sensory are grossly intact. It should be noted that the patient is presently chest pain free on a heparin drip. Results 02/18/19 03:27 02/18/19 03:27 Lab Results, Last 24 hours 02/17/19 02/17/19 02/17/19 17:53 17:53 17:53 WBC 9.6 Hgb 13.4 Hct 40.7 Plt Count 272 INR 1.0 APTT 31.7 Sodium 137 Potassium 3.3 L Chloride 105 Carbon Dioxide 25 BUN 24 H Creatinine 1.04 Glucose 223 H Calcium 9.5 Magnesium 1.9 Total Bilirubin AST ALT Alkaline Phosphatase Troponin I 0.03 02/18/19 02/18/19 03:27 03:27 WBC 9.7 Hgb 11.7 L D Hct 35.2 L Plt Count 262 INR APTT Sodium 140 Potassium 3.2 L Chloride 110 H Carbon Dioxide 21 L BUN 22 H Creatinine 0.85 Glucose 126 H Calcium 8.3 L Magnesium Total Bilirubin 1.7 H AST 96 H ALT 27 Alkaline Phosphatase 65 Troponin I 41.04 H* Consult Discharge Plan - Plan Referrals: NONE,PCP [Primary Care Provider] -
[2019-02-18] MEDS ORDERED: *HR* Ticagrelor 90 MG TABLET PO SCH (09:00)
[2019-02-18] MEDS ORDERED: Dextrose Gel 15 GM/37.5 ML TUBE PO PRN ×3 (09:33→12:48)
[2019-02-18] MEDS: Tirofiban 12.5 MG/250ML 12.5 MG/250 ML BAG IVC SCH ×2 (09:49→22:04)
[2019-02-18] MEDS: Aspirin 81 MG TAB.CHEW PO SCH (09:57)
--- NOTE | 2019-02-18 11:01 | Cardiology Progress Note ---
Date of Encounter: 02/18/19 Time of Encounter: 10:59 Assessment and Plan (1) Acute ST elevation myocardial infarction (STEMI) of inferior wall Current Visit: Yes Status: Acute Presented as inferior STEMI 9 evening. Initial troponin negative, then 41.04. 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 [facility]--There is severe three vessel CAD. Patient had successful PTCA/Drug-Eluting Stent placement in the proximal RCA. Suggested patient have Elective coronary artery bypass surgery. Seen by CT surgery. Remaining RCA distal 70% lesion. The patient also had a 90% LAD lesion and a 90% first obtuse marginal branch of the circumflex lesion. All 3 vessels were graftable. Will need Brilinta washout x 5 days prior to CABG. Pt is hesitant to stay inpt. Brilinta currently on hold and on heparin gtt. TTE LVEF 55%. Normal LV chamber size, wall thickness and overall function. Mild segmental left ventricular systolic dysfunction. Pseudonormal LV diastolic dysfunction. Normal RV structure and function. No evidence of phtn. No significant valvular dysfunction. Recommend pt stay inpt for CABG. Will continue to follow. (2) CAD (coronary artery disease) Current Visit: Yes Status: Acute Plan as above. ASA, Statin, BB, ACEi. Qualifiers: Coronary Disease-Associated Artery/Lesion type: [place] artery [place] vs. transplanted heart: [place] heart Associated angina: angina presence unspecified Qualified Code(s): I25.10 - Atherosclerotic heart disease of [place] coronary artery without angina pectoris Discussion w patient/family: The assessment and plan as outlined above was discussed with the patient and/or family members who expressed understanding and agreement. All questions were answered. Thank you for involving us in the care of your patient. Please call with any questions. I will discuss all the above with Dr. Rothman and make changes as necessary. Subjective Principal diagnosis: STEMI Interval history: Presented as acute inferior STEMI. No complaints currently. Denies chest pain or dyspnea. Objective Vital Signs, Last 4 Hours Temp Pulse Resp BP Pulse Ox 02/18/19 09:00 80 19 119/73 97 02/18/19 08:00 66 20 126/66 96 02/18/19 07:00 98.1 F 63 21 104/86 97 Vital Signs Temp Pulse Pulse Resp BP Pulse Ox 02/18/19 09:00 80 19 119/73 97 02/18/19 08:00 66 20 126/66 96 02/18/19 07:00 98.1 F 63 21 104/86 97 02/18/19 06:00 59 21 120/69 96 02/18/19 05:00 63 20 117/74 97 02/18/19 04:00 62 22 132/74 97 02/18/19 03:00 74 15 122/78 97 02/18/19 02:00 66 18 110/67 95 02/18/19 01:00 73 19 109/71 91 02/18/19 00:45 68 21 119/71 100 02/18/19 00:30 69 20 125/73 96 02/18/19 00:15 76 21 127/82 97 02/18/19 00:00 75 19 127/82 97 02/17/19 23:45 73 70 20 126/66 96 02/17/19 23:40 69 23 126/80 97 02/17/19 23:35 69 20 118/78 97 02/17/19 23:30 69 21 107/79 97 02/17/19 23:25 70 22 125/81 97 02/17/19 23:20 98.3 F 77 21 127/91 97 02/17/19 23:00 69 22 119/76 97 02/17/19 22:00 82 15 131/89 97 02/17/19 21:30 84 24 134/86 96 02/17/19 21:13 86 78 18 134/86 97 02/17/19 21:12 94 86 17 134/86 97 02/17/19 20:30 98.3 F 79 16 121/63 97 02/17/19 18:30 91 18 128/81 99 02/17/19 18:23 80 18 130/75 98 02/17/19 18:13 85 18 130/83 99 02/17/19 17:59 82 18 135/72 99 02/17/19 17:53 98 F 87 18 156/80 99 Intake and Output 02/17/19 02/18/19 02/18/19 23:59 07:59 15:59 Intake Total 0 / 0 1250 / 1250 Output Total 600 / 600 Balance 0 / 0 650 / 650 Intake: IV Fluids 1250 / 1250 0.9 % Sodium Chloride 1,000 ML 1000 / 1000 @ 125 mls/hr IVC .Q8H [facility] Rx#: [id number] Aggrastat 12.5 MG/250 ML 12.5 250 / 250 mg In 250 ml @ 0.15 MCG/KG/MIN 20.412 mls/hr IVC .[id number] [facility] Rx#:[id number] Oral 0 / 0 Output: Urine 600 / 600 Other: Weight 113.398 kg Blood Glucose* 140 146 General: Conversant, No Apparent Distress HEENT: Atraumatic, Normocephaly, Mucus Membranes Moist Neck: No JVD, Normal carotid pulses Cardiac: Reg Rate and Rhythm, Normal S1 and S2, No Murmur Lungs: Normal Breath Sounds, No Wheeze, Rales, Rhonchi Neuro: Alert and responsive, No focal deficits noted Abdomen: Soft, Non-Tender Skin: No rashes noted on visualized skin Musculoskeletal: No Chest Wall Tenderness Extremities: No Clubbing, No Cyanosis, No Edema, Normal Pulses Results 02/18/19 03:27 02/18/19 03:27 Lab Results 02/17/19 02/17/19 02/17/19 17:53 17:53 17:53 WBC 9.6 Hgb 13.4 Hct 40.7 Plt Count 272 INR 1.0 APTT 31.7 Sodium 137 Potassium 3.3 L Chloride 105 Carbon Dioxide 25 BUN 24 H Creatinine 1.04 Glucose 223 H Calcium 9.5 Magnesium 1.9 Total Bilirubin AST ALT Alkaline Phosphatase Troponin I 0.03 02/18/19 02/18/19 03:27 03:27 WBC 9.7 Hgb 11.7 L D Hct 35.2 L Plt Count 262 INR APTT Sodium 140 Potassium 3.2 L Chloride 110 H Carbon Dioxide 21 L BUN 22 H Creatinine 0.85 Glucose 126 H Calcium 8.3 L Magnesium Total Bilirubin 1.7 H AST 96 H ALT 27 Alkaline Phosphatase 65 Troponin I 41.04 H* Short CBC 02/18/19 02/17/19 Range/Units 03:27 17:53 WBC 9.7 9.6 (4.3-11.1) K/mcL Hgb 11.7 L D 13.4 (12.9-16.9) g/dL Hct 35.2 L 40.7 (37.5-50.1) % Plt Count 262 272 (140-400) K/mcL Neutrophils # 6.8 7.4 (1.6-8.9) K/mcL BMP 09/13/19 09/12/19 Range/Units 03:27 17:53 Sodium 140 137 (136-145) mEq/L Potassium 3.2 L 3.3 L (3.5-5.1) mEq/L Chloride 110 H 105 (98-107) mEq/L Carbon Dioxide 21 L 25 (23-29) mEq/L BUN 22 H 24 H (6-20) mg/dL Creatinine 0.85 1.04 (0.70-1.30) mg/dL Glucose 126 H 223 H (70-105) mg/dL Calcium 8.3 L 9.5 (8.6-10.3) mg/dL Cardiac Enzymes 02/18/19 02/17/19 Range/Units 03:27 17:53 Troponin I 41.04 H* 0.03 (< 0.04) ng/mL Liver Function 02/18/19 Range/Units 03:27 Total Bilirubin 1.7 H (0.3-1.0) mg/dL AST 96 H (13-39) Units/L ALT 27 (7-52) Units/L Alkaline Phosphatase 65 (34-104) Units/L Albumin 3.6 (3.5-5.7) g/dL Impressions Chest X-Ray 02/18/19 09:08 IMPRESSION: No evidence of acute cardiopulmonary disease. D/ / Moises Medina MD / Moises Medina MD Interpreting Provider: Moises Medina MD Echocardiogram 02/18/19 20:44 Impressions: LVEF 55%. Normal LV chamber size, wall thickness and overall function. Mild segmental left ventricular systolic dysfunction. Pseudonormal left ventricular diastolic dysfunction. Normal right ventricular structure and function. No evidence of pulmonary hypertension. No significant valvular dysfunction. Left Ventricular Wall Motion: Rest Echo Findings The basal inferior wall was hypokinetic. All other wall segments showed normal motion. Findings: Study Quality * Technically adequate exam. ECG Findings * Normal sinus rhythm. Left Ventricle * LVEF 55%. * Normal LV chamber size, wall thickness and overall function. * Mild segmental left ventricular systolic dysfunction. * Pseudonormal left ventricular diastolic dysfunction. Right Ventricle * Normal right ventricular structure and function. Left Atrium * Mildly dilated left atrium. Right Atrium * Normal right atrial size. Interatrial Septum * Interatrial septum not well evaluated. Aortic Valve * Aortic valve not well visualized. * No aortic regurgitation. * No aortic stenosis. Mitral Valve * Normal mitral valve structure and function. * No mitral stenosis. * Trace mitral regurgitation. Tricuspid Valve * Normal tricuspid valve structure and function. * Trace tricuspid regurgitation. * No evidence of pulmonary hypertension. Pulmonic Valve * Normal pulmonic valve structure and function. * No pulmonic regurgitation. Aorta * Normally sized aortic root. Pericardium * The pericardium appears normal. IVC * Normal IVC dimensions and inspiratory collapse. Pulmonary Artery * Normal visualized portions of the main pulmonary artery. Active Medications Acetaminophen (Tylenol) 500 mg PO Q6H PRN PRN Reason: Mild Pain Stop: 08/19/19 20:45 Hydrocodone Bitart/Acetaminophen ([place] 5-325 Mg) 1 tab PO Q4HR PRN PRN Reason: Moderate Pain Stop: 08/19/19 21:07 Aspirin (Aspirin) 81 mg PO DAILY [facility] Stop: 08/20/19 09:01 Last Admin: 02/18/19 09:57 Dose: 81 mg Documented by: Atorvastatin Calcium (Lipitor) 80 mg PO HS [facility] Stop: 08/19/19 21:01 Last Admin: 02/17/19 21:56 Dose: 80 mg Documented by: Glucose (Gluctose) 15 gm PO ONCE PRN PRN Reason: Hypoglycemia Stop: 08/20/19 09:34 Heparin Sodium (Porcine) (Heparin) 4,000 unit IVP Q6HR PRN PRN Reason: SEE COMMENTS Stop: 08/19/19 18:21 Heparin Sodium (Porcine) (Heparin) 2,000 unit IVP Q6H PRN PRN Reason: SEE COMMENTS Stop: 08/19/19 18:21 Heparin Sodium/Dextrose (Heparin 25,000 Unit/250 Ml D5w) 25,000 unit in 250 mls @ 9.979 mls/hr IVC .Q24H [facility]; Protocol Stop: 08/19/19 18:31 Last Admin: 02/18/19 07:01 Dose: 8.8 unit/kg/hr, 10 mls/hr Documented by: Sodium Chloride (0.9 % Sodium Chloride) 1,000 mls @ 125 mls/hr IVC .Q8H [facility] Stop: 08/19/19 18:31 Last Admin: 02/18/19 04:00 Dose: Not Given Documented by: Tirofiban/Sodium Chloride (Aggrastat 12.5 Mg/250 Ml) 12.5 mg in 250 mls @ 20.412 mls/hr IVC .[id number] [facility] Stop: 08/19/19 06:30 Last Admin: 02/18/19 09:49 Dose: Not Given Documented by: Insulin Human Lispro (Humalog) 0 units SQ HS [facility]; Protocol Stop: 08/20/19 21:01 Insulin Human Lispro (Humalog) 0 units SQ TIDAC [facility]; Protocol Stop: 08/20/19 11:31 Lisinopril (Zestril) 5 mg PO DAILY [facility] Stop: 08/19/19 21:16 Last Admin: 02/18/19 09:57 Dose: 5 mg Documented by: Metoprolol Tartrate (Lopressor) 25 mg PO BID [facility] Stop: 08/19/19 21:01 Last Admin: 02/18/19 09:57 Dose: 25 mg Documented by: Ondansetron HCl (Zofran) 4 mg IVP Q6HR PRN; Protocol PRN Reason: Nausea And Vomiting Stop: 08/19/19 21:07 - Imaging and Cardiology Echo: report reviewed Cardiac cath: report reviewed - VTE Reasons for not Prescribing Prophylaxis: Not indicated-Anticoagulated or INR therapeutic Consult Discharge Plan - Plan Referrals: NONE,PCP [Primary Care Provider] -
--- NOTE | 2019-02-18 11:03 | Electrocardiograph Report ---
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 Right bundle branch block Electronically Signed On 02-18-2019 11:20:42 EDT by Hubert Bullock
--- NOTE | 2019-02-18 11:21 | Electrocardiograph Report ---
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
[2019-02-18] MEDS: Insulin LISPRO 300 UNITS/3 ML VIAL SQ SCH ×3 (12:33→17:45)
--- NOTE | 2019-02-18 12:38 | Internal Medicine Consult Note ---
Date of Encounter: 02/18/19 Time of Encounter: 09:00 - Assessment and Plan (1) Diabetes mellitus Current Visit: Yes Status: Acute Assessment and plan: 1. Will hold Metformin. 2. Will order SSI and monitor glucose. 3. Diabetic diet. 4. Will check A1C. 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 Per cardiology and CT surgery. 2.. Currently CP free. (3) Hyperlipidemia Current Visit: Yes Status: Chronic Assessment and plan: 1. On Lipitor. 2. Continue and monitor LFT's. Qualifiers: Hyperlipidemia type: mixed hyperlipidemia Qualified Code(s): E78.2 - Mixed hyperlipidemia (4) Hypertension Current Visit: Yes Status: Chronic Assessment and plan: 1. ON ANTHONY and BB. 2. Monitor BP and adjust meds accordingly. 3. Monitor for bradycardia given inferior wall STEMI. Qualifiers: Hypertension type: essential hypertension Qualified Code(s): I10 - Essential (primary) hypertension (5) DVT prophylaxis Current Visit: Yes Status: Acute Assessment and plan: 1. Heparin drip per protocol. Internal Medicine - CN: HPI - Data of Consult Consult date: 02/18/19 Requesting Physician: Luis Galarza - Consult Narrative Reason for consult: assistance with medical management History of present illness: Mr. Wilde is a 58 year old male who presented last night with an inferior wall STEMI requiring emergency cardiac intervention. He underwent PTCA and stent and was referred to CT surgery for coronary artery bypass grafting. Hospitalists were consulted for assistance with medical management. I saw patient this morning in ICU, and he appears to be hemodynamically stable and chest pain-free presently. He is referred to CT surgery for CABG. He is maintained on heparin drip, beta rico, ANTHONY, aspirin, and statin. Dr. Betancourt feels he will need coronary bypass grafting and should not be discharged prior to CABG. Patient has concerns about tying loose ends at home and getting his affairs in order before surgery. I recommended he discuss with cardiology and CT surgery regarding these concerns.. Regarding his medical conditions, he suffers from type 2 diabetes, hypertension, and a prior stroke. He does not smoke and never has smoked. He is not using any alcohol or illicit drugs either. Past Med Surg Social Fam HX - Past Medical History Attestation: Yes The following information was validated with the patient. Source: patient, other (limited old records) Medical history: CVA, diabetes, hyperlipidemia, hypertension Psychiatric history: no psych history - Past Surgical History Surgical History: no surgical history - Social History Smoking Status: Never smoker Alcohol use: none Drug use: none Current living situation: Home, With Family Activity Level: Independent ambulation - Family History Father Hx Family Cancer: Yes Mother Hx Family Cancer: Yes - Constitutional Constitutional: fatigue, no chills, no fever(s), no night sweats - EENT Eyes: no change in vision Ears: no ear pain, no tinnitus Nose, mouth and throat: no nasal congestion, no sinus pressure, no sore throat - Cardiovascular Cardiovascular ROS IM: chest pain, dyspnea, dyspnea on exertion, no edema, no orthopnea, no syncope - Respiratory Respiratory: no cough, no hemoptysis, no wheezing, no chest congestion - Gastrointestinal Gastrointestinal: no diarrhea, no hematemesis, no hematochezia, no melena, no nausea, no vomiting - Genitourinary Genitourinary ROS male: no dysuria, no flank pain, no hematuria - Musculoskeletal Musculoskeletal ROS IM: no arthralgias, no back pain, no myalgias - Integumentary Integumentary IM: no rash, no jaundice - Neurological Neurological ROS: no dizziness, no focal weakness, no headache(s) - Psychiatric Psychiatric: no anxiety, no depression - Endocrine Endocrine IM: no polydipsia, no polyuria - Hematologic/Lymphatic Hematologic/Lymphatic: no easy bruising, no lymphadenopathy - Allergic/Immunologic Allergic/Immunologic: no wheezing, no GI upset with certain foods Internal Medicine - CN: Meds Amlodipine Besylate 10 mg PO DAILY 02/17/19 [History] Aspirin [Lo-Dose Aspirin EC] 81 mg PO DAILY 02/17/19 [History] Cinnamon Bark [Cinnamon] 500 mg PO DAILY 02/17/19 [History] Dapagliflozin Propanediol [Farxiga] 5 mg PO DAILY 02/17/19 [History] Dulaglutide [Trulicity] 1.5 mg SQ MO 02/17/19 [History] Losartan Potassium 50 - 100 mg PO DAILY 02/17/19 [History] Metformin HCl [Metformin HCl ER] 1,000 mg PO DAILY 02/17/19 [History] Metoprolol Succinate [Toprol Xl] 25 mg PO DAILY 02/17/19 [History] [place]-3/Dha/Epa/Fish Oil [Fish Oil 1,000 mg Softgel] 1 cap PO DAILY 02/17/19 [History] Rosuvastatin Calcium 10 mg PO HS 02/17/19 [History] Allergy/AdvReac Type Severity Reaction Status Date / Time No Known Allergies Allergy Verified 02/17/19 21:13 Hospitalist - CN: Exam - Constitutional Vitals: Temp Pulse Resp BP Pulse Ox 98.1 F 80 19 119/73 97 02/18/19 12:14 02/18/19 09:00 02/18/19 09:00 02/18/19 09:00 02/18/19 09:00 General appearance IM: Present: cooperative, A&O X 3, pleasant, no acute distress Exam: CP free currently - Head Head exam: Present: atraumatic, normal inspection - Eye Eye exam: Present: EOMI, PERRL. Absent: scleral icterus Pupils: Present: normal accommodation - ENT ENT exam: Present: normal exam, normal oropharynx - Neck Neck exam general surgery: Present: full ROM, supple, trachea midline. Absent: tenderness, nuchal rigidity, thyromegaly - Respiratory Respiratory exam: Present: CTAB. Absent: chest wall tenderness, rales, rhonchi, wheezes - Cardiovascular Cardiovascular exam IM: Present: RRR, +S1, +S2. Absent: diastolic murmur, JVD, systolic murmur - GI/Abdominal GI/Abdominal exam IM: Present: normal bowel sounds, soft. Absent: guarding, hepatomegaly, rebound, splenomegaly, tenderness - Extremities Exam Extremities exam IM: Present: full ROM, normal capillary refill, warm, radial pulses palpable and symmetrical. Absent: calf tenderness, joint swelling, pedal edema, tenderness - Back Exam Back exam: Absent: CVA tenderness (L), CVA tenderness (R) - Neurological Exam Neurological exam: Present: alert, CN II-XII intact, oriented X3, strengths equal and symetr throughout - Psychiatric Psychiatric exam: Present: normal affect, normal mood - Skin Skin exam IM: Present: dry, intact, warm Internal Medicine - CN: Reslt - Labs CBC & Chem 7: 02/18/19 03:27 02/18/19 03:27 Labs: Short CBC 02/17/19 02/18/19 Range/Units 17:53 03:27 WBC 9.6 9.7 (4.3-11.1) K/mcL Hgb 13.4 11.7 L D (12.9-16.9) g/dL Hct 40.7 35.2 L (37.5-50.1) % Plt Count 272 262 (140-400) K/mcL Neutrophils # 7.4 6.8 (1.6-8.9) K/mcL BMP 02/17/19 02/18/19 17:53 03:27 Sodium 137 140 Potassium 3.3 L 3.2 L Chloride 105 110 H Carbon Dioxide 25 21 L BUN 24 H 22 H Creatinine 1.04 0.85 Glucose 223 H 126 H Calcium 9.5 8.3 L Cardiac Enzymes 02/17/19 02/18/19 Range/Units 17:53 03:27 Troponin I 0.03 41.04 H* (< 0.04) ng/mL Liver Function 02/18/19 Range/Units 03:27 Total Bilirubin 1.7 H (0.3-1.0) mg/dL AST 96 H (13-39) Units/L ALT 27 (7-52) Units/L Alkaline Phosphatase 65 (34-104) Units/L Albumin 3.6 (3.5-5.7) g/dL - ABG Interpretation ABG results: PT/INR, D-dimer PT 11.9 Seconds (9.4-12.1) 02/17/19 17:53 - Impressions Impressions Chest X-Ray 02/18/19 09:08 IMPRESSION: No evidence of acute cardiopulmonary disease. D/ / Moises Medina MD / Moises Medina MD Interpreting Provider: Moises Medina MD Echocardiogram 02/18/19 20:44 Impressions: LVEF 55%. Normal LV chamber size, wall thickness and overall function. Mild segmental left ventricular systolic dysfunction. Pseudonormal left ventricular diastolic dysfunction. Normal right ventricular structure and function. No evidence of pulmonary hypertension. No significant valvular dysfunction. Left Ventricular Wall Motion: Rest Echo Findings The basal inferior wall was hypokinetic. All other wall segments showed normal motion. Findings: Study Quality * Technically adequate exam. ECG Findings * Normal sinus rhythm. Left Ventricle * LVEF 55%. * Normal LV chamber size, wall thickness and overall function. * Mild segmental left ventricular systolic dysfunction. * Pseudonormal left ventricular diastolic dysfunction. Right Ventricle * Normal right ventricular structure and function. Left Atrium * Mildly dilated left atrium. Right Atrium * Normal right atrial size. Interatrial Septum * Interatrial septum not well evaluated. Aortic Valve * Aortic valve not well visualized. * No aortic regurgitation. * No aortic stenosis. Mitral Valve * Normal mitral valve structure and function. * No mitral stenosis. * Trace mitral regurgitation. Tricuspid Valve * Normal tricuspid valve structure and function. * Trace tricuspid regurgitation. * No evidence of pulmonary hypertension. Pulmonic Valve * Normal pulmonic valve structure and function. * No pulmonic regurgitation. Aorta * Normally sized aortic root. Pericardium * The pericardium appears normal. IVC * Normal IVC dimensions and inspiratory collapse. Pulmonary Artery * Normal visualized portions of the main pulmonary artery. Consult Discharge Plan - Plan Referrals: NONE,PCP [Primary Care Provider] -
[2019-02-18] MEDS ORDERED: D5% in Water 1,000 ML IVC PRN (12:48)
[2019-02-18] MEDS ORDERED: *HR* Dextrose 50 % in Water (Syg) 50 ML SYRINGE IVP PRN (12:48)
[2019-02-18 14:09] LABS: Estimated Average Glucose 171 mg/dl
[2019-02-18] MEDS ORDERED: Insulin LISPRO 300 UNITS/3 ML VIAL SQ SCH (21:00)
[2019-02-19] MEDS: 0.9 % Sodium Chloride 1,000 ML IVC SCH ×2 (01:58→12:00)
[2019-02-19 04:03] LABS: BUN/Creatinine Ratio 26 (6-26); Blood Urea Nitrogen 24 mg/dL (6-20); Calcium 8.5 mg/dL (8.6-10.3); Carbon Dioxide 22 mEq/L (23-29); Chloride 109 mEq/L (98-107); Glucose 137 mg/dL (70-105); Osmolality,Calculated 296 (280-300); Potassium 3.4 mEq/L (3.5-5.1); Sodium 140 mEq/L (136-145); eGFR For African Americans > 60 (> 60); eGFR For Non-African Americans > 60 (> 60)
[2019-02-19 04:04] LABS: Basophils % 0.5 %; Eosinophils # 0.2 K/mcL (0.0-0.6); Eosinophils % 2.1 %; Hematocrit 35.6 % (37.5-50.1); Hemoglobin 11.9 g/dL (12.9-16.9); Immature Granulocytes % 0.2 % (0-4); Lymphocytes # 2.3 K/mcL (0.6-4.6); Lymphocytes % 27.9 %; Mean Corpuscular HGB Conc 33.4 g/dL (31.6-35.5); Mean Corpuscular Hemoglobin 28.1 pg (28.0-33.3); Monocytes # 0.9 K/mcL (0.0-1.3); Monocytes % 10.3 %; Neutrophils # 4.9 K/mcL (1.6-8.9); Platelet Count 237 K/mcL (140-400); Red Blood Count 4.24 M/mcL (4.19-5.50); Red Cell Distribution Width 13.1 % (11.5-14.5); White Blood Count 8.2 K/mcL (4.3-11.1)
--- NOTE | 2019-02-19 07:28 | Cardiothoracic Progress Note ---
Date of Encounter: 02/19/19 Time of Encounter: 07:27 - Assessment and plan (1) ST elevation myocardial infarction (STEMI) Current Visit: Yes Status: Acute The patient is scheduled for open heart surgery on . He has no questions. He is okay to transfer to the floor from my standpoint. Based on his anatomy, he should remain in the hospital until he had his surgery. Qualifiers: Involved coronary artery: right coronary artery Qualified Code(s): I21.11 - ST elevation (STEMI) myocardial infarction involving right coronary artery - Subjective Interval history: The patient has had no angina and no chest pain. Vital Signs, Last 4 Hours Pulse Resp BP Pulse Ox 02/19/19 06:00 68 14 139/65 95 Weight 02/17/19 02/18/19 02/19/19 23:59 23:59 23:59 Weight 113.398 kg Lungs are clear to percussion and auscultation. Heart is in a normal sinus rhythm. - Labs 02/19/19 04:00 02/18/19 03:27 Lab Results, Last 24 hours 02/19/19 04:00 WBC 8.2 Hgb 11.9 L Hct 35.6 L Plt Count 237 - VTE Reasons for not Prescribing Prophylaxis: Not indicated-Anticoagulated or INR therapeutic Consult Discharge Plan - Plan Referrals: NONE,PCP [Primary Care Provider] -
[2019-02-19 07:59] LABS: Magnesium 2.1 mg/dL (1.6-2.6)
[2019-02-19] MEDS: Aspirin 81 MG TAB.CHEW PO SCH (08:59)
[2019-02-19] MEDS: Insulin LISPRO 300 UNITS/3 ML VIAL SQ SCH ×2 (09:04→13:20)
--- NOTE | 2019-02-19 11:56 | Cardiology Progress Note ---
Date of Encounter: 02/19/19 Time of Encounter: 11:00 Assessment and Plan (1) Acute ST elevation myocardial infarction (STEMI) of inferior wall Current Visit: Yes Status: Acute Presented as inferior STEMI 02/17 evening. Initial troponin negative, then 41.04. Taken urgently to labeling strategist. [facility]--There is severe three vessel CAD. Patient had successful PTCA/Drug-Eluting Stent placement in the proximal RCA. Suggested patient have Elective coronary artery bypass surgery. Seen by CT surgery. Remaining RCA distal 70% lesion. The patient also had a 90% LAD lesion and a 90% first obtuse marginal branch of the circumflex lesion. All 3 vessels were graftable. Will need Brilinta washout x 5 days prior to CABG. Patient is now agreeable to remain as inpt for CABG as recommended. Brilinta stopped, on heparin gtt. No chest pain or discomfort. Plan for CABG mid next week. TTE LVEF 55%. Normal LV chamber size, wall thickness and overall function. Mild segmental left ventricular systolic dysfunction. Pseudonormal LV diastolic dysfunction. Normal RV structure and function. No evidence of phtn. No significant valvular dysfunction. Recommend pt stay inpt for CABG. Will continue to follow. Labs, vitals, telemetry stable. Transfer orders placed for 2N/2NE. VTE prophylaxis: Heparin gtt. (2) CAD (coronary artery disease) Current Visit: Yes Status: Acute Plan as above. ASA, Statin, BB Qualifiers: Coronary Disease-Associated Artery/Lesion type: [place] artery [place] vs. transplanted heart: [place] heart Associated angina: angina presence unspecified Qualified Code(s): I25.10 - Atherosclerotic heart disease of [place] coronary artery without angina pectoris (3) Hypertension Current Visit: Yes Status: Chronic Controlled on current medical therapy Qualifiers: Hypertension type: essential hypertension Qualified Code(s): I10 - Essential (primary) hypertension Discussion w patient/family: The assessment and plan as outlined above was discussed with the patient and/or family members who expressed understanding and agreement. All questions were answered. Thank you for involving us in the care of your patient. Please call with any questions. The patient will be discussed and reviewed with Dr. Rothman; changes to be made accordingly. Subjective Principal diagnosis: STEMI Interval history: Seen and examined. Up to bedside chair. No new CV complaints upon exam today. No issues with right groin cath site. Objective Vital Signs, Last 4 Hours Temp Pulse Resp BP Pulse Ox 02/19/19 10:00 82 17 122/75 96 02/19/19 09:00 80 18 149/75 97 02/19/19 08:32 98.5 F 02/19/19 08:00 81 18 165/111 97 General: Conversant, No Apparent Distress HEENT: Atraumatic, Normocephaly, Mucus Membranes Moist Neck: No JVD, Normal carotid pulses Cardiac: Reg Rate and Rhythm, Normal S1 and S2, No Murmur Lungs: Normal Breath Sounds, No Wheeze, Rales, Rhonchi Neuro: Alert and responsive, No focal deficits noted Abdomen: Soft, Non-Tender Skin: No rashes noted on visualized skin Musculoskeletal: No Chest Wall Tenderness Extremities: No Clubbing, No Cyanosis, No Edema, Normal Pulses Results 02/19/19 04:00 02/19/19 03:00 Lab Results 02/19/19 02/19/19 03:00 04:00 WBC 8.2 Hgb 11.9 L Hct 35.6 L Plt Count 237 Sodium 140 Potassium 3.4 L Chloride 109 H Carbon Dioxide 22 L BUN 24 H Creatinine 0.94 Glucose 137 H Calcium 8.5 L Magnesium 2.1 Active Medications Acetaminophen (Tylenol) 500 mg PO Q6H PRN PRN Reason: Mild Pain Stop: 08/19/19 20:45 Hydrocodone Bitart/Acetaminophen ([place] 5-325 Mg) 1 tab PO Q4HR PRN PRN Reason: Moderate Pain Stop: 08/19/19 21:07 Aspirin (Aspirin) 81 mg PO DAILY [facility] Stop: 08/20/19 09:01 Last Admin: 02/19/19 08:59 Dose: 81 mg Documented by: Atorvastatin Calcium (Lipitor) 80 mg PO HS [facility]ALEY Stop: 08/19/19 21:01 Last Admin: 02/18/19 19:44 Dose: 80 mg Documented by: Dextrose/Water (Dextrose 50% (Syg)) 25 ml IVP AD PRN PRN Reason: Hypoglycemia Stop: 08/20/19 12:49 Glucagon (Glucagen) 1 mg IM ONCE PRN PRN Reason: Hypoglycemia Stop: 08/20/19 12:49 Glucose (Gluctose) 15 gm PO ONCE PRN PRN Reason: Hypoglycemia Stop: 08/20/19 09:34 Glucose (Gluctose) 15 gm PO ONCE PRN PRN Reason: Hypoglycemia Stop: 08/20/19 12:49 Glucose (Gluctose) 30 gm PO ONCE PRN PRN Reason: Hypoglycemia Stop: 08/20/19 12:49 Heparin Sodium (Porcine) (Heparin) 4,000 unit IVP Q6HR PRN PRN Reason: SEE COMMENTS Stop: 08/19/19 18:21 Heparin Sodium (Porcine) (Heparin) 2,000 unit IVP Q6H PRN PRN Reason: SEE COMMENTS Stop: 08/19/19 18:21 Last Admin: 02/18/19 20:56 Dose: 2,000 unit Documented by: Heparin Sodium/Dextrose (Heparin 25,000 Unit/250 Ml D5w) 25,000 unit in 250 mls @ 9.979 mls/hr IVC .Q24H [facility]ALEY; Protocol Stop: 08/19/19 18:31 Last Titration: 02/19/19 09:48 Dose: 12.8 unit/kg/hr, 14.5 mls/hr Documented by: Sodium Chloride (0.9 % Sodium Chloride) 1,000 mls @ 125 mls/hr IVC .Q8H [facility]Y Stop: 08/19/19 18:31 Last Admin: 02/19/19 01:58 Dose: Not Given Documented by: Dextrose (Dextrose 5%) 1,000 mls @ 100 mls/hr IVC .Q10H PRN PRN Reason: HYPOGLYCEMIA Stop: 08/20/19 12:49 Insulin Human Lispro (Humalog) 0 units SQ HS [facility]; Protocol Stop: 08/20/19 21:01 Last Admin: 02/18/19 20:55 Dose: Not Given Documented by: Insulin Human Lispro (Humalog) 0 units SQ TIDAC [facility]; Protocol Stop: 08/20/19 11:31 Last Admin: 02/19/19 09:04 Dose: 2 units Documented by: Lisinopril (Zestril) 5 mg PO DAILY [facility] Stop: 08/19/19 21:16 Last Admin: 02/19/19 08:59 Dose: 5 mg Documented by: Metoprolol Tartrate (Lopressor) 25 mg PO BID [facility] Stop: 08/19/19 21:01 Last Admin: 02/19/19 08:59 Dose: 25 mg Documented by: Ondansetron HCl (Zofran) 4 mg IVP Q6HR PRN; Protocol PRN Reason: Nausea And Vomiting Stop: 08/19/19 21:07 - Imaging and Cardiology Chest Xray: report reviewed Echo: report reviewed Cardiac cath: report reviewed - EKG Interpretation EKG results cardiology: personally reviewed - VTE Reasons for not Prescribing Prophylaxis: Not indicated-Anticoagulated or INR therapeutic Consult Discharge Plan - Plan Referrals: NONE,PCP [Primary Care Provider] -
--- NOTE | 2019-02-19 13:14 | Internal Med Progress Note ---
Hospitalist Progress Note - Encounter Date of Encounter: 02/19/19 Time of Encounter: 07:50 - Subjective Interval History: Patient doing well with no CP or shortness of breath. He remains on heparin drip. BP a little elevated. Glucose stable. Patient awaiting CABG. - Exam Vitals: Temp Pulse Resp BP Pulse Ox 98.0 F 80 16 130/78 97 02/19/19 12:30 02/19/19 12:00 02/19/19 12:00 02/19/19 12:00 02/19/19 12:00 Exam: General: NAD; CP free HEENT: moist mucosa, neck supple Chest: CTA B; No WRR, RRR, no MTR Abdomen: soft, NT, ND, no HSMG Ext: no CCE; equal pulses; no calf pain Neuro: A&Ox3; no focal deficits Skin: warm and dry - Assessment and Plan (1) Diabetes mellitus Current Visit: Yes Status: Acute Assessment and Plan: 1. On SSI; glucose levels stable. 2. Avoid oral agents while in hospital. 3. Monitor glucose and adjust insulin as necessary. (2) Acute ST elevation myocardial infarction (STEMI) of inferior wall Current Visit: Yes Status: Acute Assessment and Plan: 1. Per cardiology. 2. Awaiting CABG. 3. On heparin gtt; CP free. (3) Hyperlipidemia Current Visit: Yes Status: Chronic Assessment and Plan: 1. Continue STATIN. (4) Hypertension Current Visit: Yes Status: Chronic Assessment and Plan: 1. On BB and ANTHONY. 2. Monitor BP and adjust meds as necessary. (5) DVT prophylaxis Current Visit: Yes Status: Acute Assessment and Plan: 1. Heparin gtt per [facility] protocol. - Time Spent with Patient Total time spent is greater than 50% in coordination of care (as documented) at patient's floor/unit and/or counseling patient: Plan of Care Discussed with: other (MDR team) Internal Medicine: Result - Labs CBC & Chem 7: 02/19/19 04:00 02/19/19 03:00 Labs: Short CBC 02/19/19 Range/Units 04:00 WBC 8.2 (4.3-11.1) K/mcL Hgb 11.9 L (12.9-16.9) g/dL Hct 35.6 L (37.5-50.1) % Plt Count 237 (140-400) K/mcL Neutrophils # 4.9 (1.6-8.9) K/mcL BMP 02/19/19 03:00 Sodium 140 Potassium 3.4 L Chloride 109 H Carbon Dioxide 22 L BUN 24 H Creatinine 0.94 Glucose 137 H Calcium 8.5 L - ABG Interpretation ABG results: PT/INR, D-dimer PT 11.9 Seconds (9.4-12.1) 02/17/19 17:53 - VTE Reasons for not Prescribing Prophylaxis: Not indicated-Anticoagulated or INR therapeutic Consult Discharge Plan - Plan Referrals: NONE,PCP [Primary Care Provider] - (1) Diabetes mellitus Qualifiers: Diabetes mellitus type: type 2 Diabetes mellitus rn long term care insulin use: u nspecified rn long term care insulin use status Diabetes mellitus complication detail: with other circulatory complications (3) Hyperlipidemia Qualifiers: Hyperlipidemia type: mixed hyperlipidemia Qualified Code(s): E78.2 - Mixed hyperlipidemia (4) Hypertension Qualifiers: Hypertension type: essential hypertension Qualified Code(s): I10 - Essential (primary) hypertension
--- NOTE | 2019-02-19 13:30 | Invasive Diagnostic Lab Proc ---
Name: Caesar Wilde Date of Study: 02/17/2019 Date: 1960 Ht: 68.1in Medical Record#: [id number] Age: 58 Wt: 250.00lb Gender: Male BSA: 2.25 Order #: [id number] BMI: 37.89 Physicians Procedure Physician: Caesar Summers MD Referring MD: Referring MD: Staff Name Position Time In Abigail, Francisco RN Monitor 06:35 PM Jasmine Benitez RN Inside Sales Trainer 06:35 PM Rafa Jimenze RT (R) Scrub 06:35 PM Indications Indication STEMI Procedures Performed Procedure L HRT ARTERY/VENTRICLE ANGIO PRQ CARD REVASC MT 1 VSL Pre-Procedure Checklist Informed consent is complete signed and on chart. H&P is on chart. ID band is on and ID verified with patient. Patient NPO for procedure The procedure was described for the patient and questions were answered. Blood Pressure: 134/75 ECG is on chart. Rhythm: NSR Plan of Care Patient will tolerate the procedure without complications. Adequate level of comfort will be maintained. Hemodynamics will remain stable Patient will recover from procedure without complications. Respiratory function will be maintained. Cardiac rhythm will remain stable. Patient temperature will be maintained. Patient and/or family have verbalized understanding of the procedure. Patient Education Chief Complaint/Reason for Test: Cardiac Cath Developmental Category: Adult (18-64 years) Developmentally Appropriate for Age: Yes Learning Barriers: None Education Needs: Procedure Education Method: Verbal Information Taught: Cardiac Cath Educational Evaluation: Able to repeat information Intravenous Access Time IV Size Location DC'd Fluid/Drip Rate Units RN 18g 1 1/4" Patent On Arrival Rt Arm Jasmine Benitez RN 20g 1 1/4" Patent On Arrival Lt Arm 0.9NaCl Jasmine Benitez RN Allergies No Known Allergies Vital Signs Time BP (mmHg) HR (bpm) O2 Sat. RR (bpm) LOC 06:42 PM / % 5 = Fully awake and oriented or at pre-proc level 06:42 PM / % 4 = Oriented but drowsy 06:58 PM / % 4 = Oriented but drowsy 07:14 PM / % 4 = Oriented but drowsy 06:44 PM 154 / 97 86 100 % 23 06:49 PM 152 / 91 82 100 % 26 06:54 PM 142 / 92 88 97 % 18 06:59 PM 137 / 93 91 97 % 20 07:04 PM 138 / 94 97 98 % 15 07:10 PM 122 / 84 105 93 % 16 07:14 PM 122 / 83 99 97 % 17 07:19 PM 119 / 80 97 99 % 18 07:24 PM 121 / 81 95 99 % 11 07:29 PM 127 / 87 96 100 % 15 07:34 PM 133 / 87 97 100 % Procedural Medications Time Medication Dose Units Method Given By 06:42 PM Oxygen 2 L/min nasal cannula Francisco Hayes RN 06:49 PM Lidocaine 2% 18 ml Subcutaneous Caesar Summers MD 06:51 PM Versed 2 mg Intravenous Jasmine Benitez RN 06:51 PM Fentanyl 50 mcg Intravenous Jasmine Benitez RN 07:01 PM Versed 1 mg Intravenous Jasmine Benitez RN 07:01 PM Fentanyl 50 mcg Intravenous Jasmine Benitez RN 07:01 PM Heparin 4000 units Intravenous Jasmine Benitez RN 07:03 PM Oxygen 4 L/min nasal cannula Jasmine Benitez RN 07:07 PM Aggrastat Bolus: 58 ml Intravenous Jasmine Benitez RN 07:09 PM Aggrastat 12.5mg/250ml 21 ml/hr Intravenous Jasmine Benitez RN 07:09 PM Atropine 1 mg Intravenous Jasmine Benitez RN ASA Classification: Emergent Procedure: ASA score is assumed Leo Score Preprocedure Postprocedure Activity 2- Moves 4 extremities sustained head lift Activity 2- Moves 4 extremities sustained head lift Circulation 2- SBP +/= 20 points of pre-anesthetic level Circulation 2- SBP +/= 20 points of pre-anesthetic level Consciousness 2- Awake and alert oriented x 3 Consciousness 2- Awake and alert oriented x 3 O2 Saturation 2- Able to maintain O2 satruation of 92% on room air O2 Saturation 2- Able to maintain O2 satruation of 92% on room air Respiratory 2- Able to deep breathe and cough well Respiratory 2- Able to deep breathe and cough well Total Score 10 Total Score 10 Contrast Agent: Isovue Diagnostic Contrast: 107 ml Total Contrast: 107 ml Fluoro Dose: 99 mGy Activated Clotting Time Time Seconds to Clot 07:00 PM 178 Procedure Log Time Note Enter By 06:35 PM Pt arrived to analytical lab analyst 2 at 18:35 traci 06:35 PM Francisco Hayes RN Position: Monitor [facility]: 18:35 [facility] Jasmine Benitez RN Position: Inside Sales Trainer Time in: 18:35 [facility] 06:35 PM Rafa Jimenez RT (R) Position: Scrub Time in: 18:35 [facility] 06:35 PM Patient charges- Angio tray pack, Navilyst 3mm J, Pulse Oximetry and ACIST tubing and transducer [facility] 06:40 PM Meet and greet completed [facility] 06:40 PM Sign in performed according to hospital policy. Informed consent was obtained. [facility] PM Procedure start 18:42 [facility] :42 PM Time: 18:42 Oxygen on at 2 L/min per nasal cannula by Francisco Hayes RN [facility] :42 PM Time: 18:42LOC: 5 = Fully awake and oriented or at pre-proc level [facility] 06:43 PM Time: 18:43 Patient comfortable and pain free: Yes [facility] PM CathStat 06:43 PM Vitals capture started with the following parameters, Patient=Adult, Interval=5 min, Initial Iluytugf=064 mmHg, Deflation Rate=3 mmHg, Cuff placed on Right Arm 06:44 PM Pressure channel 1 zeroed. 06:44 PM Recorded ECG: DV=156 Condition=Condition 1 06:44 PM HR=86 bpm, RVJP=622/97 mmhg, FpT6=499.0 %, Resp=23 B/min, Comment=nsr 06:49 PM HR=82 bpm, NIQA=127/91 mmhg, TdX1=472.0 %, Resp=26 B/min, Comment=nsr 06:49 PM Time out was performed according to hospital policy. Conscious sedation and anesthesia was achieved (see medication log with in this report above) [facility] 06:50 PM Time: 18:49 18 ml Lidocaine 2% to right groin Subcutaneous Given by Caesar Summers MD [facility] 06[facility] PM Micro-Introducer Kit utilized for sheath placement [facility] 06:51 PM Time: 18:51 Versed 2 mg Intravenous Given by Jasmine Benitez RN 06:51 PM Time: 18:51 Fentanyl 50 mcg Intravenous Given by Jasmine Benitez RN jcnaya 06:54 PM HR=88 bpm, WNKL=457/92 mmhg, SpO2=97.0 %, Resp=18 B/min, Comment=nsr 06:56 PM .014 Amplatz SuperStiff 180cm guide wire across target lesion- successful. reused? No jcallihan 06:56 PM Inflation device was opened. jcallihan 06:56 PM wire removed [email or web address] 06:57 PM 0.035 180cm Glidewire-Stiff shaft wire [id number] jcallihan 06:57 PM Access obtained by percutaneous puncture. 6Fr 10cm Terumo Noble sheath placed in right Femoral artery. [id number] jcallihan 06:57 PM j-wire re-inserted jcallihan 06:58 PM Time: 18:42LOC: 4 = Oriented but drowsy jcallihan 06:58 PM Time: 18:43 Patient comfortable and pain free: Yes [email or web address] 06:58 PM 5Fr FL 4 catheter inserted over the wire DNC jcallihan 06:58 PM LCA angiography performed in multiple views. [email or web address] 06:58 PM Recorded Pressure: Ao, HR=90, Condition=Condition 1 (Aorta) Ao 105/80/93 06:59 PM HR=91 bpm, CKUO=456/93 mmhg, SpO2=97.0 %, Resp=20 B/min, Comment=nsr 06:59 PM Catheter removed [email or web address] 07:00 PM At 19:00 the ACT was 178 seconds. [email or web address] 07:01 PM 6Fr JR 4 SH Runway guide catheter was used to cannulate the PCI vessel successfully. reused? No jcallihan 07:01 PM RCA angiography performed in multiple views. [email or web address] 07:01 PM Time: 19:01 Versed 1 mg Intravenous Given by Jasmine Benitez RN 07:01 PM Time: 19:01 Fentanyl 50 mcg Intravenous Given by Jasmine Benitez RN 07:02 PM Time: 19:01 Heparin 4000 units Intravenous Given by Jasmine Benitez RN 07:03 PM Time: 19:03 Oxygen on at 4 L/min per nasal cannula by Jasmine Benitez RN 07:03 PM Recorded Pressure: Ao, FV=574, Condition=Condition 1 (Aorta) Ao 114/74/93 07:03 PM RCA angiography performed in multiple views. [email or web address] 07:03 PM Guide catheter removed intact. jcallihan 07:04 PM did not engage well. jcallihan 07:04 PM HR=97 bpm, XGHR=125/94 mmhg, SpO2=98.0 %, Resp=15 B/min, Comment=nsr 07:04 PM 6Fr AL1 Runway guide catheter was used to cannulate the PCI vessel successfully. reused? No jcallihan 07:06 PM .014 PT Graphix 182cm guide wire across target lesion- successful. reused? No jcallihan 07:06 PM 2.5 mm x 15 mm Emerge Monorail balloon across target lesion- successful. reused? No jcallihan 07:07 PM Balloon inflated @ 14 dong for 10 seconds [email or web address] 07:07 PM Balloon inflated @ 14 dong for 6 seconds [email or web address] 07:09 PM Time: 19:07 Aggrastat Bolus: 58 ml Intravenous Given by Jasmine Benitez RN Weinstein pump jcallihchristian 07:09 PM Time: 19:09 Aggrastat 12.5mg/250ml 21 ml/hr Intravenous Given by Jasmine Benitez RN Weinstein pump jcallihan 07:09 PM Time: 19:09 Atropine 1 mg Intravenous Given by Jasmine Benitez RN [email or web address] 07:10 PM Recorded Pressure: Ao, CS=803, Condition=Condition 1 (Aorta) Ao 90/64/77 07:10 PM TS=030 bpm, JRAU=673/84 mmhg, SpO2=93.0 %, Resp=16 B/min, Comment=st 07:11 PM Balloon catheter removed intact. jcallihan 07:11 PM PCI Status Emergency jcallihan 07:11 PM PCI lesion in Proximal RCA. Pre Stenosis: 100 Pre DANIEL Flow: 0: No Flow/No perfusion jcallihan 07:14 PM Time: 18:58LOC: 4 = Oriented but drowsy jcallihan 07:14 PM HR=99 bpm, YIRY=030/83 mmhg, SpO2=97.0 %, Resp=17 B/min 07:14 PM Time: 18:58 Patient comfortable and pain free: Yes [email or web address] 07:15 PM 3.5mm x 38mm Synergy drug-eluting stent across target lesion- successful Lot #[id number] jcallihan 07:17 PM Recorded Pressure: Ao, HR=96, Condition=Condition 1 (Aorta) Ao 86/72/80 07:17 PM Stent deployed @ 16 dong for 14 seconds jcallihan 07:18 PM Stent delivery system removed intact. [email or web address] 07:19 PM HR=97 bpm, UFQH=547/80 mmhg, SpO2=99.0 %, Resp=18 B/min, Comment=nsr 07:19 PM 4.0 mm x 20mm NC Emerge balloon across target lesion- successful. reused? No jcallihan 07:20 PM Balloon inflated @ 12 dong for 6 seconds [email or web address] 07:20 PM Balloon inflated @ 12 dong for 8 seconds [email or web address] 07:21 PM Balloon inflated @ 16 dong for 16 seconds jcallihan 07:22 PM Balloon inflated @ 16 dong for 15 seconds jcallihan 07:22 PM Balloon catheter removed intact. jcallihan 07:22 PM Recorded Pressure: Ao, HR=97, Condition=Condition 1 (Aorta) Ao 94/71/83 07:24 PM HR=95 bpm, CVWJ=056/81 mmhg, SpO2=99.0 %, Resp=11 B/min, Comment=nsr 07:24 PM Guide wire removed intact. [email or web address] 07:26 PM Pressure channel 1 zeroed. 07:27 PM Recorded Pressure: LV, HR=99, Condition=Condition 1 (Left Ventricle) LV 114/-4/3 07:27 PM Recorded Pressure: LV, Ao, HR=98, Condition=Condition 1 (Left Ventricle) LV 111/3/6, (Aorta) Ao 109/70/88 07:28 PM Recorded Pressure: Ao, HR=97, Condition=Condition 1 (Aorta) Ao 116/65/85 07:28 PM Guide catheter removed intact. [email or web address] 07:29 PM HR=96 bpm, SFWS=283/87 mmhg, VjO6=140.0 %, Resp=15 B/min 07:29 PM Time: 19:14 Patient comfortable and pain free: Yes [email or web address] 07:29 PM Time: 19:14LOC: 4 = Oriented but drowsy jcallihan 07:29 PM 5Fr Pigtail catheter inserted over the wire DNC jcallihan 07:30 PM Catheter crossed the aortic valve and was selectively placed in the left ventricle. Pressures recorded on pullback for left heart catheterization. jcallihan 07:30 PM Bolus angiogram of left Ventricle complete: 12 ml/sec for a total of 30 mls jcallihan 07:31 PM Catheter removed jcallihan 07:31 PM Bolus angiogram of right Femoral complete: 4 ml/sec for a total of 7 mls jcallihan 07:31 PM Wire removed jcallihan 07:31 PM Coronary Dominance: right jcallihan 07:31 PM Procedure completed at 19:31 02/17/2019 [email or web address] 07:31 PM Did you address DANIEL flow and Dominance? YesCoronary Dominance: right jcallihan 07:32 PM Sign out completed: Radiation Dose 752.62 mGy, 99 Gy/cm2 Fluoro Time: 10.9 Isovue 370 - 200ml contrast 107 ml given by Caesar Summers MD. Complications: None. The patient was discharged out of the cardiac cath lab manager in stable condition. Sedation minutes 50. Cardiac Rehab Consult needed: Yes. Confirmed administered medications: Yes jcallihan 07:34 PM HR=97 bpm, NELV=240/87 mmhg, AvQ5=656.0 %, Comment=nsr 07:34 PM Isovue 370 - 150ml,2 Bottle(s) used. jcallihan 07:34 PM Sheath left in place to be pulled on floor/holding areaV+Pad jcallihan 07:34 PM Estimated Blood Loss: less than 50cc jcallihan 07:34 PM Post ECG NSR jcallihan 07:34 PM Post Blood Pressure 133/87 jcallihan 07:34 PM 19:34 Post Pulses Bilateral DP & PT 2+ jcallihan 07:35 PM Information taught Cardiac Cath, PCI, and DISTRIBUTION ENGINEERING TECHNOLOGIST/Stent jcallihan 07:35 PM Education needs Procedure, Plan of Care, and Responsibilities of Patient in Care jcallihan 07:35 PM Learning barriers :None jcallihan 07:35 PM Education Methods Verbal jcallihan 07:35 PM Education evaluation Able to repeat information jcallihan 07:35 PM Site status No bleeding/ No Hematoma - Rt Groin as reported by Rafa Jimenez RT (R) at 19:35 jcallihan 07:35 PM Opsite applied jcallihan 07:35 PM Plavix, Effient or Brilinta given Yes jcallihan 07:36 PM Patient out of room: 19:35 jcallihan 07:36 PM Family placed in the consult room. [email or web address] 07:36 PM Complications: None jcallihan 07:45 PM Report given to Amado HERRMANN Pt taken to ICU Room #2. 19:45 jcallihan 08:02 PM Lesion found in Distal RCA. Pre Stenosis: 70 Pre DANIEL Flow: [email or web address] 08:02 PM Lesion found in Right PDA. Pre Stenosis: 100 Pre DANIEL Flow: jcallihan 08:02 PM Lesion found in Mid LAD. Pre Stenosis: 90 Pre DANIEL Flow: jcallihan 08:02 PM Lesion found in Distal LAD. Pre Stenosis: 50 Pre DANIEL Flow: jcallihan 08:02 PM Lesion found in 1st Marginal. Pre Stenosis: 90 Pre DANIEL Flow: jcallihan Complications Complication None Hemodynamics Pressures Site Systolic/A Wave Diastolic/V Wave Mean AO 105 80 93 AO 114 74 93 AO 90 64 77 AO 86 72 80 AO 94 71 83 LV 114 -4 3 LV 111 3 6 AO 109 70 88 AO 116 65 85 Post Procedure Information Blood Pressure: 133/87 mmHg Rhythm: NSR Post procedural instructions were given Closure Device Time Device Success/Fail Manual Compression Site Checks Time Location Status Staff Sheath In? Note 07:35 PM Rt Groin No bleeding/ No Hematoma Rafa Jimenez RT (R) Pulses Time Site Pre-Procedure Post-Procedure Note Bilateral DP 2+ Bilateral radial 2+ 7:34:00 PM Bilateral DP & PT 2+ Updated by Lilian Espinoza RT (R) on 02/19/2019 1:23:08 PM RT Beatriz electronically signed on 02/19/2019 1:23:40 PM with status of Final
[2019-02-19] MEDS ORDERED: Dextrose Gel 15 GM/37.5 ML TUBE PO PRN ×5 (14:41→19:26)
[2019-02-19] MEDS ORDERED: Ondansetron 4 MG/2 ML VIAL IVP PRN (14:41)
[2019-02-19] MEDS ORDERED: D5% in Water 1,000 ML IVC PRN ×2 (14:41→19:26)
[2019-02-19] MEDS ORDERED: *HR* Dextrose 50 % in Water (Syg) 50 ML SYRINGE IVP PRN ×2 (14:41→19:26)
[2019-02-19] MEDS ORDERED: *HR* Heparin 5,000 UNIT/ML VIAL IVP PRN ×4 (14:41→19:26)
[2019-02-19] MEDS ORDERED: *HR* HYDROcodone/Acet 5/325 mg TABLET PO PRN (14:41)
[2019-02-19] MEDS ORDERED: Heparin 25,000 UNIT/250 ML D5W 25,000 UNIT/250 ML IV.SOLN IVC SCH (14:41)
[2019-02-19] MEDS ORDERED: 0.9 % Sodium Chloride 1,000 ML IVC SCH (14:41)
[2019-02-19] MEDS ORDERED: Insulin LISPRO 300 UNITS/3 ML VIAL SQ SCH ×2 (16:30→21:00)
[2019-02-19] MEDS ORDERED: Acetaminophen 325 MG TABLET PO PRN (19:26)
[2019-02-19 20:18] LABS: Estimated Average Glucose 171 mg/dl
--- NOTE | 2019-02-19 20:18 | Event Note ---
Date of Encounter: 02/19/19 Time of Encounter: 19:15 While making my initial unit rounds, I was alerted by this pts. nurse that the pt. was transferred from ICU to [facility]. Cardiology is primary on this patient. Patient was admitted for an acute STEMI requiring emergent cardiac catheterization on 02/17. Severe three-vessel CAD discovered during catheterization. Patient is now to have CABG. Upon transfer from ICU to [facility], patient's orders were inadvertently discontinued by Cardiology. Nurse called Senior Health Consultant button machine operator, Dr. Rothman, who told the nurse that she was unable to continue the orders and suggested that Pharmacy or IT fix the problem. Discussed w/Dr. Collazo who was familiar w/the patient while he was in ICU regarding the pt. currently having no orders. Dr. Collazo continued necessary orders for the continuation of patient care for this very high risk Cardiology patient. I appreciate the help and recommendations as always. I instructed the nurse to file an incident report regarding Cardiology not continuing orders on their primary patient who remains extremely high risk. Nurse instructed to continue monitoring this patient very closely and alert me immediately of any further issues or adverse events so Cardiology may be called if necessary.
[2019-02-19] MEDS: Heparin 25,000 UNIT/250 ML D5W 25,000 UNIT/250 ML IV.SOLN IVC SCH (20:28)
[2019-02-20 04:31] LABS: Basophils % 0.4 %; Eosinophils # 0.2 K/mcL (0.0-0.6); Hematocrit 35.9 % (37.5-50.1); Hemoglobin 11.7 g/dL (12.9-16.9); Immature Granulocytes % 0.3 % (0-4); Lymphocytes # 2.4 K/mcL (0.6-4.6); Lymphocytes % 32.7 %; Mean Corpuscular HGB Conc 32.6 g/dL (31.6-35.5); Mean Corpuscular Hemoglobin 27.5 pg (28.0-33.3); Mean Corpuscular Volume 84.5 fL (83.0-100.0); Monocytes # 0.7 K/mcL (0.0-1.3); Monocytes % 9.6 %; Platelet Count 219 K/mcL (140-400); Red Blood Count 4.25 M/mcL (4.19-5.50); Red Cell Distribution Width 13.1 % (11.5-14.5); White Blood Count 7.4 K/mcL (4.3-11.1)
[2019-02-20 04:50] LABS: BUN/Creatinine Ratio 24 (6-26); Blood Urea Nitrogen 20 mg/dL (6-20); Calcium 8.5 mg/dL (8.6-10.3); Carbon Dioxide 24 mEq/L (23-29); Chloride 113 mEq/L (98-107); Glucose 130 mg/dL (70-105); Osmolality,Calculated 300 (280-300); Potassium 3.6 mEq/L (3.5-5.1); Sodium 143 mEq/L (136-145); eGFR For African Americans > 60 (> 60); eGFR For Non-African Americans > 60 (> 60)
[2019-02-20] MEDS: Insulin LISPRO 300 UNITS/3 ML VIAL SQ SCH ×3 (08:25→16:29)
[2019-02-20] MEDS ORDERED: Aspirin 81 MG TAB.CHEW PO SCH (09:00)
[2019-02-20] MEDS: amLODIPine 5 MG TABLET PO SCH (09:25)
[2019-02-20] MEDS: Aspirin 81 MG TAB.CHEW PO SCH (09:26)
--- NOTE | 2019-02-20 11:44 | Cardiology Progress Note ---
Date of Encounter: 02/20/19 Time of Encounter: 11:42 Assessment and Plan (1) Acute ST elevation myocardial infarction (STEMI) of inferior wall Current Visit: Yes Status: Acute Presented as inferior STEMI 9 evening. Initial troponin negative, then 41.04. Taken urgently to biology laboratory assistant. [facility]--There is severe three vessel CAD. Patient had successful PTCA/Drug-Eluting Stent placement in the proximal RCA. Suggested patient have Elective coronary artery bypass surgery. Seen by CT surgery. Remaining RCA distal 70% lesion. The patient also had a 90% LAD lesion and a 90% first obtuse marginal branch of the circumflex lesion. All 3 vessels were graftable. Will need Brilinta washout x 5 days prior to CABG. Agreeable to remain as inpt for CABG as recommended. Brilinta stopped, on heparin gtt. No chest pain or discomfort. Plan for CABG mid next week. TTE LVEF 55%. Normal LV chamber size, wall thickness and overall function. Mild segmental left ventricular systolic dysfunction. Pseudonormal LV diastolic dysfunction. Normal RV structure and function. No evidence of phtn. No significant valvular dysfunction. Recommend pt stay inpt for CABG. Will continue to follow. Labs, vitals, telemetry stable. VTE prophylaxis: Heparin gtt. (2) CAD (coronary artery disease) Current Visit: Yes Status: Acute Plan as above. ASA, Statin, BB. Qualifiers: Coronary Disease-Associated Artery/Lesion type: [place] artery [place] vs. transplanted heart: [place] heart Associated angina: angina presence unspecified Qualified Code(s): I25.10 - Atherosclerotic heart disease of [place] coronary artery without angina pectoris Discussion w patient/family: The assessment and plan as outlined above was discussed with the patient and/or family members who expressed understanding and agreement. All questions were answered. Thank you for involving us in the care of your patient. Please call with any questions. I will discuss all the above with Dr. Rothman and make changes as necessary. Subjective Principal diagnosis: STEMI Interval history: No acute complaints this AM. Objective Vital Signs, Last 4 Hours Pulse BP 02/20/19 10:57 82 128/79 Vital Signs Temp Pulse Resp BP Pulse Ox 02/20/19 10:57 82 128/79 02/20/19 07:42 98.6 F 63 18 138/87 93 02/20/19 04:03 97.7 F 63 14 137/82 97 02/19/19 19:56 98.1 F 83 16 159/92 96 02/19/19 16:00 98.1 F 76 14 140/84 96 02/19/19 15:00 98.2 F 77 14 135/89 98 02/19/19 14:00 75 18 128/78 97 02/19/19 13:00 78 19 122/78 97 02/19/19 12:30 98.0 F 02/19/19 12:00 80 16 130/78 97 Intake and Output 02/19/19 02/20/19 02/20/19 23:59 07:59 15:59 Intake Total 600 / 800 145 / 145 Output Total 0 / 175 Balance 600 / 625 145 / 145 Intake: IV Fluids 145 / 145 Heparin 25,000 UNIT/250 ML D5W 145 / 145 25,000 unit In 250 ml @ 8.9 UNIT/KG/HR 10.092 mls/hr IVC . Q24H [facility] Rx#:[id number] Oral 600 / 800 Output: Urine 0 / 0 Other: Meal Dinner Percent of Meal Consumed 100% Weight 104.7 kg Blood Glucose* 177 123 211 Patient Weight 02/20/19 23:59 Weight 104.7 kg General: Conversant, No Apparent Distress HEENT: Atraumatic, Normocephaly, Mucus Membranes Moist Neck: No JVD, Normal carotid pulses Cardiac: Reg Rate and Rhythm, Normal S1 and S2, No Murmur Lungs: Normal Breath Sounds, No Wheeze, Rales, Rhonchi Neuro: Alert and responsive, No focal deficits noted Abdomen: Soft, Non-Tender Skin: No rashes noted on visualized skin Musculoskeletal: No Chest Wall Tenderness Extremities: No Clubbing, No Cyanosis, No Edema, Normal Pulses Results 02/20/19 03:55 02/20/19 03:55 Lab Results 02/20/19 02/20/19 03:55 03:55 WBC 7.4 Hgb 11.7 L Hct 35.9 L Plt Count 219 Sodium 143 Potassium 3.6 Chloride 113 H Carbon Dioxide 24 BUN 20 Creatinine 0.82 Glucose 130 H Calcium 8.5 L Short CBC 02/20/19 Range/Units 03:55 WBC 7.4 (4.3-11.1) K/mcL Hgb 11.7 L (12.9-16.9) g/dL Hct 35.9 L (37.5-50.1) % Plt Count 219 (140-400) K/mcL Neutrophils # 4.0 (1.6-8.9) K/mcL BMP 02/20/19 Range/Units 03:55 Sodium 143 (136-145) mEq/L Potassium 3.6 (3.5-5.1) mEq/L Chloride 113 H (98-107) mEq/L Carbon Dioxide 24 (23-29) mEq/L BUN 20 (6-20) mg/dL Creatinine 0.82 (0.70-1.30) mg/dL Glucose 130 H (70-105) mg/dL Calcium 8.5 L (8.6-10.3) mg/dL Active Medications Acetaminophen (Tylenol) 650 mg PO Q6HR PRN PRN Reason: Pain Stop: 08/21/19 19:27 Amlodipine Besylate (Norvasc) 10 mg PO DAILY [facility] Stop: 08/22/19 09:01 Last Admin: 02/20/19 09:25 Dose: 10 mg Documented by: Aspirin (Aspirin) 81 mg PO DAILY [facility] Stop: 08/22/19 09:01 Last Admin: 02/20/19 09:26 Dose: 81 mg Documented by: Atorvastatin Calcium (Lipitor) 80 mg PO HS [facility] Stop: 08/21/19 21:01 Last Admin: 02/19/19 20:25 Dose: 80 mg Documented by: Dextrose/Water (Dextrose 50% (Syg)) 25 ml IVP AD PRN PRN Reason: Hypoglycemia Stop: 08/21/19 19:27 Glucagon (Glucagen) 1 mg IM ONCE PRN PRN Reason: Hypoglycemia Stop: 08/21/19 19:27 Glucose (Gluctose) 15 gm PO ONCE PRN PRN Reason: Hypoglycemia Stop: 08/21/19 19:27 Glucose (Gluctose) 30 gm PO ONCE PRN PRN Reason: Hypoglycemia Stop: 08/21/19 19:27 Heparin Sodium (Porcine) (Heparin) 4,000 unit IVP Q6HR PRN PRN Reason: SEE COMMENTS Stop: 08/21/19 19:27 Heparin Sodium (Porcine) (Heparin) 2,000 unit IVP Q6H PRN PRN Reason: SEE COMMENTS Stop: 08/21/19 19:27 Heparin Sodium/Dextrose (Heparin 25,000 Unit/250 Ml D5w) 25,000 unit in 250 mls @ 10.092 mls/hr IVC .Q24H [facility]; Protocol Stop: 08/21/19 19:31 Last Titration: 02/20/19 05:08 Dose: 12.79 unit/kg/hr, 14.5 mls/hr Documented by: Dextrose (Dextrose 5%) 1,000 mls @ 100 mls/hr IVC .Q10H PRN PRN Reason: HYPOGLYCEMIA Stop: 08/21/19 19:27 Insulin Human Lispro (Humalog) 0 units SQ TIDAC [facility]; Protocol Stop: 08/22/19 07:31 Last Admin: 02/20/19 08:25 Dose: Not Given Documented by: Lisinopril (Zestril) 5 mg PO DAILY [facility]; Protocol Stop: 08/22/19 09:01 Last Admin: 02/20/19 09:26 Dose: 5 mg Documented by: Metoprolol Tartrate (Lopressor) 25 mg PO BID [facility] Stop: 08/21/19 21:01 Last Admin: 02/20/19 09:26 Dose: 25 mg Documented by: - Imaging and Cardiology Echo: report reviewed Cardiac cath: report reviewed - EKG Interpretation EKG results cardiology: other (12 hr tele AVG HR 73, SR) - VTE Reasons for not Prescribing Prophylaxis: Not indicated-Anticoagulated or INR therapeutic Consult Discharge Plan - Plan Referrals: NONE,PCP [Primary Care Provider] -
[2019-02-20] MEDS: Heparin 25,000 UNIT/250 ML D5W 25,000 UNIT/250 ML IV.SOLN IVC SCH (16:29)
--- NOTE | 2019-02-20 17:58 | Internal Med Progress Note ---
Hospitalist Progress Note - Encounter Date of Encounter: 02/20/19 Time of Encounter: 12:00 - Subjective Interval History: Mr. Wilde was upset due to him being placed on fall protocol precaution. Upon further goals of care discussion with the patient and the nurse highlighting his risk for falls given his presentation with STEMI, CAD in need of CABG. He reluctantly agreed to adherence to treatment plan. Per report from the nursing staff is planned for CABG GEN: Denies fever, chills or malaise HEENT: Denies headache blurriness, or dysphagia RESP: Denies SOB or cough CV: Denies chest pain or palpitations GI: Denies Nausea, vomiting, diarrhea or constipation Reviewed current in hospital medications with modifications see orders Reviewed Routine labs - Exam Vitals: Temp Pulse Resp BP Pulse Ox 98.2 F 85 16 130/86 96 02/20/19 15:38 02/20/19 15:38 02/20/19 15:38 02/20/19 15:38 02/20/19 15:38 Exam: GEN: NAD, A&O x 3, Pleasant and conversant but somewhat agitated SKIN: [place] warm acyanotic not jaundice HEART: RRR, no murmurs LUNGS: CTA no wheeze or crackles, overall non labored ABDOMEN; Soft, non tender or distended, BS x 4 normactive EXT: No LE edema, Pedal pulses 1+, radial pulses 2+ PSYCH: Mood anxious and affect blunted and restricted - Assessment and Plan (1) Acute ST elevation myocardial infarction (STEMI) of inferior wall Current Visit: Yes Status: Acute Assessment and Plan: Status post left heart catheter with PCI, per report dated 2018 severe t riple-vessel disease of the coronary arteries, CABG is planned for currently denies chest pain (2) CAD (coronary artery disease) Current Visit: Yes Status: Acute Assessment and Plan: Status post [place], left heart catheter with PCI CABG planned for . On the interim he is on high-dose statin therapy lisinopril, metoprolol and aspirin (3) DVT prophylaxis Current Visit: Yes Status: Acute Assessment and Plan: On heparin drip (4) Diabetes mellitus Current Visit: Yes Status: Acute Assessment and Plan: A1c 7.6 [id number] glucose monitoring ranges from 121-173 continue current management (5) Hyperlipidemia Current Visit: Yes Status: Chronic Assessment and Plan: On atorvastatin 80 (6) Hypertension Current Visit: Yes Status: Chronic Assessment and Plan: Normotensive continue lisinopril, metoprolol - Time Spent with Patient Total time spent is greater than 50% in coordination of care (as documented) at patient's floor/unit and/or counseling patient: Internal Medicine: Result - Labs CBC & Chem 7: 02/20/19 03:55 02/20/19 03:55 Labs: Short CBC 02/20/19 Range/Units 03:55 WBC 7.4 (4.3-11.1) K/mcL Hgb 11.7 L (12.9-16.9) g/dL Hct 35.9 L (37.5-50.1) % Plt Count 219 (140-400) K/mcL Neutrophils # 4.0 (1.6-8.9) K/mcL BMP 02/20/19 03:55 Sodium 143 Potassium 3.6 Chloride 113 H Carbon Dioxide 24 BUN 20 Creatinine 0.82 Glucose 130 H Calcium 8.5 L - ABG Interpretation ABG results: PT/INR, D-dimer PT 11.9 Seconds (9.4-12.1) 02/17/19 17:53 - VTE Reasons for not Prescribing Prophylaxis: Not indicated-Anticoagulated or INR therapeutic Consult Discharge Plan - Plan Referrals: NONE,PCP [Primary Care Provider] - __ (2) CAD (coronary artery disease) Qualifiers: Coronary Disease-Associated Artery/Lesion type: [place] artery [place] vs. transplanted heart: [place] heart Associated angina: angina presence unspecified Qualified Code(s): I25.10 - Atherosclerotic heart disease of [place] coronary artery without angina pectoris (4) Diabetes mellitus Qualifiers: Diabetes mellitus type: type 2 Diabetes mellitus intermediate manager insulin use: unsp ecified intermediate manager insulin use status Diabetes mellitus complication detail: with other circulatory complications (5) Hyperlipidemia Qualifiers: Hyperlipidemia type: mixed hyperlipidemia Qualified Code(s): E78.2 - Mixed hyperlipidemia (6) Hypertension Qualifiers: Hypertension type: essential hypertension Qualified Code(s): I10 - Essential (primary) hypertension
[2019-02-21 05:18] LABS: Basophils % 0.4 %; Eosinophils # 0.3 K/mcL (0.0-0.6); Hematocrit 34.8 % (37.5-50.1); Hemoglobin 11.5 g/dL (12.9-16.9); Immature Granulocytes % 0.4 % (0-4); Lymphocytes # 1.8 K/mcL (0.6-4.6); Lymphocytes % 24.5 %; Mean Corpuscular Hemoglobin 27.9 pg (28.0-33.3); Mean Corpuscular Volume 84.5 fL (83.0-100.0); Mean Platelet Volume 10.6 fL (9.4-12.4); Monocytes # 0.8 K/mcL (0.0-1.3); Monocytes % 10.8 %; Neutrophils # 4.5 K/mcL (1.6-8.9); Platelet Count 219 K/mcL (140-400); Red Blood Count 4.12 M/mcL (4.19-5.50); Red Cell Distribution Width 12.9 % (11.5-14.5); Segmented Neutrophils % 59.9 %; White Blood Count 7.5 K/mcL (4.3-11.1)
[2019-02-21 05:36] LABS: BUN/Creatinine Ratio 26 (6-26); Blood Urea Nitrogen 19 mg/dL (6-20); Calcium 8.5 mg/dL (8.6-10.3); Carbon Dioxide 23 mEq/L (23-29); Chloride 110 mEq/L (98-107); Glucose 148 mg/dL (70-105); Osmolality,Calculated 291 (280-300); Potassium 3.5 mEq/L (3.5-5.1); Sodium 138 mEq/L (136-145); eGFR For African Americans > 60 (> 60); eGFR For Non-African Americans > 60 (> 60)
[2019-02-21] MEDS: Insulin LISPRO 300 UNITS/3 ML VIAL SQ SCH ×3 (07:58→15:55)
[2019-02-21] MEDS: Aspirin 81 MG TAB.CHEW PO SCH (08:53)
[2019-02-21] MEDS: amLODIPine 5 MG TABLET PO SCH (08:53)
--- NOTE | 2019-02-21 09:01 | Cardiothoracic Progress Note ---
Date of Encounter: 02/21/19 Time of Encounter: 08:59 - Assessment and plan (1) ST elevation myocardial infarction (STEMI) Current Visit: Yes Status: Acute Operative consent was obtained. The patient is scheduled for . Risks of surgery include , infection, stroke, myocardial infarction, bleeding, clots around the heart, renal or respiratory failure, acute or chronic graft closure, phrenic nerve injury and sternal dehiscence. The procedure, its risks, benefits and alternatives were explained and he wishes to proceed. He has no questions. Qualifiers: Involved coronary artery: right coronary artery Qualified Code(s): I21.11 - ST elevation (STEMI) myocardial infarction involving right coronary artery - Subjective Interval history: The patient has had no angina and has no complaints. Vital Signs, Last 4 Hours Temp Pulse Resp BP 02/21/19 07:26 98 F 65 18 131/81 02/21/19 05:04 98.1 F 77 16 138/78 Clinical Data, last 8 Hours Output, Urine Amount 375 Weight 02/19/19 02/20/19 02/21/19 23:59 23:59 23:59 Weight 104.7 kg 101 kg Lungs are clear to percussion and auscultation. Heart is in a normal sinus rhythm. - Labs 02/21/19 05:07 02/21/19 05:07 Lab Results, Last 24 hours 02/21/19 02/21/19 05:07 05:07 WBC 7.5 Hgb 11.5 L Hct 34.8 L Plt Count 219 Sodium 138 Potassium 3.5 Chloride 110 H Carbon Dioxide 23 BUN 19 Creatinine 0.74 Glucose 148 H Calcium 8.5 L Magnesium 2.0 - VTE Reasons for not Prescribing Prophylaxis: Not indicated-Anticoagulated or INR therapeutic Consult Discharge Plan - Plan Referrals: NONE,PCP [Primary Care Provider] -
[2019-02-21] MEDS: Heparin 25,000 UNIT/250 ML D5W 25,000 UNIT/250 ML IV.SOLN IVC SCH (09:39)
--- NOTE | 2019-02-21 12:12 | Electrocardiograph Report ---
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
--- NOTE | 2019-02-21 14:13 | Cardiology Progress Note ---
Date of Encounter: 02/21/19 Time of Encounter: 13:00 Assessment and Plan (1) Acute ST elevation myocardial infarction (STEMI) of inferior wall Current Visit: Yes Status: Acute Presented as inferior STEMI 02/17 evening. Initial troponin negative, then 41.04. Taken urgently to [employer]. C revealed severe three vessel CAD. Patient had successful PTCA/Drug-Eluting Stent placement in the proximal RCA. Suggested patient have Elective coronary artery bypass surgery. No complication from surgery. RIght femoral access without hematoma. Seen by CT surgery and CABG is recommended after brilinta wash-out for 5 days. Remaining RCA distal 70% lesion, 90% LAD lesion, 90% first obtuse marginal branch of the circumflex lesion. All three lesions with good targets for grafts. Brilinta stopped, on heparin gtt. Plan for surgery . Denies chest pain or discomfort. TTE LVEF 55%. Normal LV chamber size, wall thickness and overall function. Mild segmental left ventricular systolic dysfunction. Pseudonormal LV diastolic dysfunction. Normal RV structure and function. No evidence of phtn. No significant valvular dysfunction. Labs, vitals, telemetry stable. VTE prophylaxis: Heparin gtt. (2) CAD (coronary artery disease) Current Visit: Yes Status: Acute Plan as above. ASA, Statin, BB. Qualifiers: Coronary Disease-Associated Artery/Lesion type: [place] artery [place] vs. transplanted heart: [place] heart Associated angina: angina presence unspecified Qualified Code(s): I25.10 - Atherosclerotic heart disease of [place] coronary artery without angina pectoris Discussion w patient/family: The assessment and plan as outlined above was discussed with the patient and/or family members who expressed understanding and agreement. All questions were answered. Thank you for involving us in the care of your patient. Please call with any questions. Subjective Principal diagnosis: STEMI Interval history: Patient sitting in chair. Denies chest pain. Notes bruising in right groin. No pain. Objective Vital Signs, Last 4 Hours Temp Pulse Resp BP 02/21/19 12:10 98 F 90 17 124/80 General: Conversant, No Apparent Distress HEENT: Atraumatic, Normocephaly, Mucus Membranes Moist Neck: No JVD, Normal carotid pulses Cardiac: Reg Rate and Rhythm, Normal S1 and S2, No Murmur Lungs: Normal Breath Sounds, No Wheeze, Rales, Rhonchi Neuro: Alert and responsive, No focal deficits noted Abdomen: Soft, Non-Tender Skin: No rashes noted on visualized skin Musculoskeletal: No Chest Wall Tenderness Extremities: No Clubbing, No Cyanosis, No Edema, Normal Pulses, Other (right femoral access site without hematoma, mild ecchymosis seen.) Results 02/21/19 05:07 02/21/19 05:07 Lab Results 02/21/19 02/21/19 05:07 05:07 WBC 7.5 Hgb 11.5 L Hct 34.8 L Plt Count 219 Sodium 138 Potassium 3.5 Chloride 110 H Carbon Dioxide 23 BUN 19 Creatinine 0.74 Glucose 148 H Calcium 8.5 L Magnesium 2.0 - Imaging and Cardiology Echo: report reviewed Cardiac cath: report reviewed - VTE Reasons for not Prescribing Prophylaxis: Not indicated-Anticoagulated or INR therapeutic Consult Discharge Plan - Plan Referrals: NONE,PCP [Primary Care Provider] -
--- NOTE | 2019-02-21 14:56 | Internal Med Progress Note ---
Hospitalist Progress Note - Encounter Date of Encounter: 02/21/19 Time of Encounter: 11:15 - Subjective Interval History: Mr evans is planned for CABG for , he still remains agitated but is agreeable to the precautionary Fall measures. GEN: Denies fever, chills or malaise HEENT: Denies headache blurriness, or dysphagia RESP: Denies SOB or cough CV: Denies chest pain or palpitations GI: Denies Nausea, vomiting, diarrhea or constipation Reviewed current in hospital medications with modifications see orders Reviewed Routine labs - Exam Vitals: Temp Pulse Resp BP Pulse Ox 98 F 90 17 124/80 99 02/21/19 12:10 02/21/19 12:10 02/21/19 12:10 02/21/19 12:10 02/20/19 19:17 Exam: GEN: NAD, A&O x 3, Pleasant and conversant SKIN: [place] warm acyanotic not jaundice HEART: RRR, no murmurs LUNGS: CTA no wheeze or crackles, overall non labored ABDOMEN; Soft, non tender or distended, BS x 4 normactive EXT: No LE edema, Pedal pulses 1+, radial pulses 2+ PSYCH: Mood and affect is appropriate today - Assessment and Plan (1) Acute ST elevation myocardial infarction (STEMI) of inferior wall Current Visit: Yes Status: Acute Assessment and Plan: Status post left heart catheter with PCI, per report dated 02/17/2019 severe triple-vessel disease of the coronary arteries, CABG is planned for currently denies chest pain, appreciate cardiothoracic team and cardiology input (2) CAD (coronary artery disease) Current Visit: Yes Status: Acute Assessment and Plan: Status post [place], left heart catheter with PCI CABG planned for . On the interim he is on high-dose statin therapy lisinopril, metoprolol and aspirin (3) DVT prophylaxis Current Visit: Yes Status: Acute Assessment and Plan: On heparin drip (4) Diabetes mellitus Current Visit: Yes Status: Acute Assessment and Plan: A1c 7.6 [id number] glucose monitoring ranges from 123-211 continue current management (5) Hyperlipidemia Current Visit: Yes Status: Chronic Assessment and Plan: On atorvastatin 80mg (6) Hypertension Current Visit: Yes Status: Chronic Assessment and Plan: Normotensive continue lisinopril, metoprolol - 124-142/ 78 -91 - Time Spent with Patient Total time spent is greater than 50% in coordination of care (as documented) at patient's floor/unit and/or counseling patient: Internal Medicine: Result - Labs CBC & Chem 7: 02/21/19 05:07 02/21/19 05:07 Labs: Short CBC 02/21/19 Range/Units 05:07 WBC 7.5 (4.3-11.1) K/mcL Hgb 11.5 L (12.9-16.9) g/dL Hct 34.8 L (37.5-50.1) % Plt Count 219 (140-400) K/mcL Neutrophils # 4.5 (1.6-8.9) K/mcL BMP 02/21/19 05:07 Sodium 138 Potassium 3.5 Chloride 110 H Carbon Dioxide 23 BUN 19 Creatinine 0.74 Glucose 148 H Calcium 8.5 L - ABG Interpretation ABG results: PT/INR, D-dimer PT 11.9 Seconds (9.4-12.1) 02/17/19 17:53 - VTE Reasons for not Prescribing Prophylaxis: Not indicated-Anticoagulated or INR therapeutic Consult Discharge Plan - Plan Referrals: NONE,PCP [Primary Care Provider] - (2) CAD (coronary artery disease) Qualifiers: Coronary Disease-Associated Artery/Lesion type: [place] artery [place] vs. transplanted heart: [place] heart Associated angina: angina presence unspecified Qualified Code(s): I25.10 - Atherosclerotic heart disease of [place] coronary artery without angina pectoris (4) Diabetes mellitus Qualifiers: Diabetes mellitus type: type 2 Diabetes mellitus mcfp insulin use: unspecified mcfp insulin use status Diabetes mellitus complication detail: with other circulatory complications (5) Hyperlipidemia Qualifiers: Hyperlipidemia type: mixed hyperlipidemia Qualified Code(s): E78.2 - Mixed hyperlipidemia (6) Hypertension Qualifiers: Hypertension type: essential hypertension Qualified Code(s): I10 - Essential (primary) hypertension
[2019-02-21 19:26] LABS: Bacteria,Urine None Seen per hpf (None-Few); Bilirubin,Urine Negative (Negative); Blood,Urine Negative (Negative); Clarity,Urine Clear (Clear); Color,Urine Yellow (Yellow); Glucose,Urine (UA) 500 mg/dL (Normal); Hyaline Casts,Urine None Seen per lpf (None-Few); Ketones,Urine Trace mg/dL (Negative); Leukocyte Esterase,Urine Negative (Negative); Nitrite,Urine Negative (Negative); Protein,Urine Negative (Neg-Trace); RBC,Urine 0-3 per hpf (0-3); Squamous Epithelial Cell,Urine Moderate per lpf (None-Few); Urobilinogen,Urine Normal (Normal); WBC,Urine 0-3 per hpf (0-3)
[2019-02-21] MEDS: Chlorhexidine Rinse 15 ML MOUTHWASH MM SCH (20:06)
[2019-02-22] MEDS: Heparin 25,000 UNIT/250 ML D5W 25,000 UNIT/250 ML IV.SOLN IVC SCH ×2 (02:39→20:29)
[2019-02-22 03:46] LABS: BUN/Creatinine Ratio 23 (6-26); Blood Urea Nitrogen 18 mg/dL (6-20); Calcium 8.7 mg/dL (8.6-10.3); Carbon Dioxide 20 mEq/L (23-29); Chloride 110 mEq/L (98-107); Glucose 151 mg/dL (70-105); Magnesium 1.8 mg/dL (1.6-2.6); Osmolality,Calculated 295 (280-300); Potassium 3.5 mEq/L (3.5-5.1); Sodium 140 mEq/L (136-145); eGFR For African Americans > 60 (> 60); eGFR For Non-African Americans > 60 (> 60)
[2019-02-22 03:52] LABS: Basophils % 0.4 %; Eosinophils # 0.3 K/mcL (0.0-0.6); Eosinophils % 3.2 %; Hematocrit 35.5 % (37.5-50.1); Hemoglobin 11.4 g/dL (12.9-16.9); Immature Granulocytes % 0.3 % (0-4); Lymphocytes % 25.4 %; Mean Corpuscular HGB Conc 32.1 g/dL (31.6-35.5); Mean Corpuscular Hemoglobin 27.7 pg (28.0-33.3); Mean Corpuscular Volume 86.4 fL (83.0-100.0); Mean Platelet Volume 11.7 fL (9.4-12.4); Monocytes # 0.8 K/mcL (0.0-1.3); Monocytes % 9.9 %; Neutrophils # 4.7 K/mcL (1.6-8.9); Platelet Count 221 K/mcL (140-400); Red Blood Count 4.11 M/mcL (4.19-5.50); Segmented Neutrophils % 60.8 %; White Blood Count 7.8 K/mcL (4.3-11.1)
[2019-02-22] MEDS: Chlorhexidine Rinse 15 ML MOUTHWASH MM SCH (08:32)
[2019-02-22] MEDS: Aspirin 81 MG TAB.CHEW PO SCH (08:37)
[2019-02-22] MEDS: amLODIPine 5 MG TABLET PO SCH (08:38)
[2019-02-22] MEDS: Insulin LISPRO 300 UNITS/3 ML VIAL SQ SCH ×3 (08:39→17:10)
--- NOTE | 2019-02-22 08:41 | Cardiothoracic Progress Note ---
Date of Encounter: 02/22/19 Time of Encounter: 08:41 - Assessment and plan (1) ST elevation myocardial infarction (STEMI) Current Visit: Yes Status: Acute The patient is scheduled for open heart surgery on . He has no questions. His preoperative hemoglobin is 11 and he has an increased risk of requiring transfusion. Carotid duplex revealed bilateral 50-69% carotid lesions. He has a history of a previous stroke in 2012 and is at increased risk of a perioperative stroke. Treatment of his carotid disease would be a baby aspirin a day and follow-up. Qualifiers: Involved coronary artery: right coronary artery Qualified Code(s): I21.11 - ST elevation (STEMI) myocardial infarction involving right coronary artery - Subjective Interval history: The patient has had no chest pain and no angina. He is on a heparin drip. Vital Signs, Last 4 Hours Temp Pulse Resp BP Pulse Ox 02/22/19 07:23 98.1 F 73 16 142/81 98 02/22/19 05:03 97.7 F 65 17 112/62 91 Weight 02/20/19 02/21/19 02/22/19 23:59 23:59 23:59 Weight 104.7 kg 101 kg 101.8 kg Lungs are clear to percussion and auscultation. Heart is in a normal sinus rhythm. - Labs 02/22/19 02:47 02/22/19 02:47 Lab Results, Last 24 hours 02/22/19 02/22/19 02:47 02:47 WBC 7.8 Hgb 11.4 L Hct 35.5 L Plt Count 221 Sodium 140 Potassium 3.5 Chloride 110 H Carbon Dioxide 20 L BUN 18 Creatinine 0.78 Glucose 151 H Calcium 8.7 Magnesium 1.8 - VTE Reasons for not Prescribing Prophylaxis: Not indicated-Anticoagulated or INR therapeutic Consult Discharge Plan - Plan Referrals: NONE,PCP [Primary Care Provider] -
--- NOTE | 2019-02-22 12:03 | Internal Med Progress Note ---
Hospitalist Progress Note - Encounter Date of Encounter: 02/22/19 Time of Encounter: 12:01 - Subjective Interval History: Mr Wilde is planned for CABG . He is complaining of loose stools this morning seems to correlate it with his dinner last night GEN: Denies fever, chills or malaise HEENT: Denies headache blurriness, or dysphagia RESP: Denies SOB or cough CV: Denies chest pain or palpitations GI: Denies Nausea, vomiting, diarrhea or constipation Reviewed current in hospital medications with modifications see orders Reviewed Routine labs - Exam Vitals: Temp Pulse Resp BP Pulse Ox 98.1 F 73 16 142/81 98 02/22/19 07:23 02/22/19 07:23 02/22/19 07:23 02/22/19 07:23 02/22/19 07:23 Exam: GEN: NAD, A&O x 3, Pleasant and conversant SKIN: [place] warm acyanotic not jaundice HEART: RRR, no murmurs LUNGS: CTA no wheeze or crackles, overall non labored ABDOMEN; Soft, non tender or distended, BS x 4 normactive EXT: No LE edema, Pedal pulses 1+, radial pulses 2+ PSYCH: Mood and affect is appropriate - Assessment and Plan (1) Diabetes mellitus Current Visit: Yes Status: Acute Assessment and Plan: A1c 7.6 [id number] glucose monitoring ranges from 130-197 quite at goal c ontinue current management with mealtime insulin per protocol (2) Acute ST elevation myocardial infarction (STEMI) of inferior wall Current Visit: Yes Status: Acute Assessment and Plan: Status post left heart catheter with PCI, per report dated 02/17/2019 severe triple-vessel disease of the coronary arteries, CABG is planned for currently denies chest pain, appreciate cardiothoracic team and cardiology input (3) CAD (coronary artery disease) Current Visit: Yes Status: Acute Assessment and Plan: Status post [place], left heart catheter with PCI CABG planned for . On the interim he is on high-dose statin therapy lisinopril, metoprolol and aspirin (4) DVT prophylaxis Current Visit: Yes Status: Acute Assessment and Plan: On heparin drip (5) Hyperlipidemia Current Visit: Yes Status: Chronic Assessment and Plan: On atorvastatin 80mg (6) Hypertension Current Visit: Yes Status: Chronic Assessment and Plan: Normotensive continue lisinopril, metoprolol - 112-142/ 62-89 (7) Anemia Current Visit: Yes Status: Acute Assessment and Plan: Hemoglobin 11.4, appears normocytic. On admission hemoglobin is 13.4, patient is on heparin drip will obtain a stool guaiac and trend H&H. He denies any melena or hematochezia, UA yesterday was negative for blood. Given his presentation with STEMI and significant coronary artery disease we will continue heparin for now pending the next H&H - Time Spent with Patient Total time spent is greater than 50% in coordination of care (as documented) at patient's floor/unit and/or counseling patient: Internal Medicine: Result - Labs CBC & Chem 7: 02/22/19 02:47 02/22/19 02:47 Labs: Short CBC 02/22/19 Range/Units 02:47 WBC 7.8 (4.3-11.1) K/mcL Hgb 11.4 L (12.9-16.9) g/dL Hct 35.5 L (37.5-50.1) % Plt Count 221 (140-400) K/mcL Neutrophils # 4.7 (1.6-8.9) K/mcL BMP 02/22/19 02:47 Sodium 140 Potassium 3.5 Chloride 110 H Carbon Dioxide 20 L BUN 18 Creatinine 0.78 Glucose 151 H Calcium 8.7 Urine 02/21/19 Range/Units 18:30 Urine Color Yellow (Yellow) Urine Clarity Clear (Clear) Urine pH 6.0 (5.0-8.0) pH Units Ur Specific [place] 1.020 (1.010-1.025) Urine Protein Negative (Neg-Trace) mg/dL Urine Glucose (UA) 500 H (Normal) mg/dL - ABG Interpretation ABG results: PT/INR, D-dimer PT 11.9 Seconds (9.4-12.1) 02/17/19 17:53 - VTE Reasons for not Prescribing Prophylaxis: Not indicated-Anticoagulated or INR therapeutic Consult Discharge Plan - Plan Referrals: NONE,PCP [Primary Care Provider] - (1) Diabetes mellitus Qualifiers: Diabetes mellitus type: type 2 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 transplanted heart: [place] heart Associated angina: angina presence unspecified Qualified Code(s): I25.10 - Atherosclerotic heart disease of [place] coronary artery without angina pectoris (5) Hyperlipidemia Qualifiers: Hyperlipidemia type: mixed hyperlipidemia Qualified Code(s): E78.2 - Mixed hyperlipidemia (6) Hypertension Qualifiers: Hypertension type: essential hypertension Qualified Code(s): I10 - Essential (primary) hypertension (7) Anemia Qualifiers: Anemia type: unspecified type Qualified Code(s): D64.9 - Anemia, unspecified
--- NOTE | 2019-02-22 12:23 | Cardiology Progress Note ---
Date of Encounter: 02/22/19 Time of Encounter: 12:21 Assessment and Plan (1) Acute ST elevation myocardial infarction (STEMI) of inferior wall Current Visit: Yes Status: Acute Presented as inferior STEMI 02/17 evening. Initial troponin negative, then 41.04. 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 C revealed severe three vessel CAD. S/p PTCA/Drug- Eluting Stent placement in the proximal RCA. Suggested patient have Elective coronary artery bypass surgery. No complication from surgery. Right femoral access without hematoma. Seen by CT surgery and CABG is recommended after brilinta wash-out for 5 days. Remaining RCA distal 70% lesion, 90% LAD lesion, 90% first obtuse marginal branch of the circumflex lesion. All three lesions with good targets for grafts. Brilinta stopped, on heparin gtt. Plan for surgery . Denies chest pain or discomfort. Recommended to stay in hospital until surgery. TTE LVEF 55%. Normal LV chamber size, wall thickness and overall function. Mild segmental left ventricular systolic dysfunction. Pseudonormal LV diastolic dy sfunction. Normal RV structure and function. No evidence of phtn. No significant valvular dysfunction. Labs, vitals, telemetry stable. VTE prophylaxis: Heparin gtt. Lisinopril held 02/21/19 in preparation for surgery. Monitor b/p. (2) CAD (coronary artery disease) Current Visit: Yes Status: Acute Plan as above. ASA, Statin, BB. Qualifiers: Coronary Disease-Associated Artery/Lesion type: [place] artery [place] vs. transplanted heart: [place] heart Associated angina: angina presence unspecified Qualified Code(s): I25.10 - Atherosclerotic heart disease of [place] coronary artery without angina pectoris Discussion w patient/family: The assessment and plan as outlined above was discussed with the patient and/or family members who expressed understanding and agreement. All questions were answered. Thank you for involving us in the care of your patient. Please call with any questions. Subjective Principal diagnosis: STEMI Interval history: Patient sitting in chair. Denies chest pain. Notes bruising but no pain in right femoral access. Objective Vital Signs Temp Pulse Resp BP Pulse Ox 02/22/19 07:23 98.1 F 73 16 142/81 98 02/22/19 05:03 97.7 F 65 17 112/62 91 02/22/19 00:23 97.9 F 79 15 142/89 96 02/21/19 19:43 98.3 F 81 14 134/81 98 02/21/19 15:38 98 F 81 18 124/76 Intake and Output 02/21/19 02/22/19 02/22/19 23:59 07:59 15:59 Intake Total 265 / 1835 175 / 535 360 / 535 Balance 265 / 1460 175 / 535 360 / 535 Intake: IV Fluids 25 / 325 175 / 175 Heparin 25,000 UNIT/250 ML D5W 25 / 325 175 / 175 25,000 unit In 250 ml @ 8.9 UNIT/KG/HR 10.092 mls/hr IVC . Q24H [facility] Rx#:[id number] Oral 240 / 1510 360 / 360 Other: Meal Dinner Breakfast Percent of Meal Consumed 100% 100% Weight 101.8 kg Blood Glucose* 197 141 155 Patient Weight 02/22/19 23:59 Weight 101.8 kg General: Conversant, No Apparent Distress HEENT: Atraumatic, Normocephaly, Mucus Membranes Moist Neck: No JVD, Normal carotid pulses Cardiac: Reg Rate and Rhythm, Normal S1 and S2, No Murmur Lungs: Normal Breath Sounds, No Wheeze, Rales, Rhonchi Neuro: Alert and responsive, No focal deficits noted Abdomen: Soft, Non-Tender Skin: No rashes noted on visualized skin Musculoskeletal: No Chest Wall Tenderness Extremities: No Clubbing, No Cyanosis, No Edema, Normal Pulses, Other (Mild Ecchymosis right femoral access, no hematoma. ) Results 02/22/19 02:47 02/22/19 02:47 Lab Results 02/22/19 02/22/19 02:47 02:47 WBC 7.8 Hgb 11.4 L Hct 35.5 L Plt Count 221 Sodium 140 Potassium 3.5 Chloride 110 H Carbon Dioxide 20 L BUN 18 Creatinine 0.78 Glucose 151 H Calcium 8.7 Magnesium 1.8 - Imaging and Cardiology Echo: report reviewed - EKG Interpretation EKG results cardiology: personally reviewed - VTE Reasons for not Prescribing Prophylaxis: Not indicated-Anticoagulated or INR therapeutic Consult Discharge Plan - Plan Referrals: NONE,PCP [Primary Care Provider] -
[2019-02-22 13:05] LABS: Hematocrit 37.3 % (37.5-50.1); Hemoglobin 12.2 g/dL (12.9-16.9)
[2019-02-22 19:45] LABS: Hematocrit 38.1 % (37.5-50.1); Hemoglobin 12.4 g/dL (12.9-16.9)
[2019-02-23 05:02] LABS: Basophils % 0.4 %; Eosinophils # 0.2 K/mcL (0.0-0.6); Eosinophils % 3.4 %; Hematocrit 35.4 % (37.5-50.1); Hemoglobin 11.7 g/dL (12.9-16.9); Immature Granulocytes % 0.3 % (0-4); Lymphocytes # 1.6 K/mcL (0.6-4.6); Lymphocytes % 22.8 %; Mean Corpuscular HGB Conc 33.1 g/dL (31.6-35.5); Mean Corpuscular Hemoglobin 28.6 pg (28.0-33.3); Mean Corpuscular Volume 86.6 fL (83.0-100.0); Mean Platelet Volume 11.1 fL (9.4-12.4); Monocytes # 0.7 K/mcL (0.0-1.3); Monocytes % 9.7 %; Neutrophils # 4.5 K/mcL (1.6-8.9); Platelet Count 224 K/mcL (140-400); Red Blood Count 4.09 M/mcL (4.19-5.50); Red Cell Distribution Width 13.1 % (11.5-14.5); Segmented Neutrophils % 63.4 %
[2019-02-23 05:19] LABS: BUN/Creatinine Ratio 22 (6-26); Blood Urea Nitrogen 18 mg/dL (6-20); Calcium 8.9 mg/dL (8.6-10.3); Carbon Dioxide 24 mEq/L (23-29); Chloride 106 mEq/L (98-107); Glucose 175 mg/dL (70-105); Magnesium 1.8 mg/dL (1.6-2.6); Osmolality,Calculated 298 (280-300); Potassium 3.5 mEq/L (3.5-5.1); Sodium 141 mEq/L (136-145); eGFR For African Americans > 60 (> 60); eGFR For Non-African Americans > 60 (> 60)
[2019-02-23] MEDS: Insulin LISPRO 300 UNITS/3 ML VIAL SQ SCH ×4 (08:10→22:56)
--- NOTE | 2019-02-23 08:30 | Cardiothoracic Progress Note ---
Date of Encounter: 02/23/19 Time of Encounter: 08:29 - Assessment and plan (1) ST elevation myocardial infarction (STEMI) Current Visit: Yes Status: Acute The patient is scheduled for open heart surgery tomorrow. We will discontinue his heparin drip at 0500 tomorrow morning. He has no questions. Qualifiers: Involved coronary artery: right coronary artery Qualified Code(s): I21.11 - ST elevation (STEMI) myocardial infarction involving right coronary artery - Subjective Interval history: The patient has had no angina or chest pain and has no complaints. Vital Signs, Last 4 Hours Temp Pulse Resp BP Pulse Ox 02/23/19 07:11 98.4 F 81 20 131/85 96 02/23/19 05:09 98 F 70 16 126/65 96 Weight 02/21/19 02/22/19 02/23/19 23:59 23:59 23:59 Weight 101 kg 101.8 kg 102.6 kg Lungs are clear to percussion and auscultation. Heart is in a normal sinus rhythm. - Labs 02/23/19 04:25 02/23/19 04:25 Lab Results, Last 24 hours 02/22/19 02/22/19 02/23/19 12:19 19:19 04:25 WBC 7.0 Hgb 12.2 L 12.4 L 11.7 L Hct 37.3 L 38.1 35.4 L Plt Count 224 Sodium Potassium Chloride Carbon Dioxide BUN Creatinine Glucose Calcium Magnesium 02/23/19 04:25 WBC Hgb Hct Plt Count Sodium 141 Potassium 3.5 Chloride 106 Carbon Dioxide 24 BUN 18 Creatinine 0.83 Glucose 175 H Calcium 8.9 Magnesium 1.8 - VTE Reasons for not Prescribing Prophylaxis: Not indicated-Anticoagulated or INR therapeutic Consult Discharge Plan - Plan Referrals: NONE,PCP [Primary Care Provider] -
[2019-02-23] MEDS: amLODIPine 5 MG TABLET PO SCH (09:18)
[2019-02-23] MEDS: Aspirin 81 MG TAB.CHEW PO SCH (09:18)
--- NOTE | 2019-02-23 10:04 | Event Note ---
Date of Encounter: 02/23/19 Time of Encounter: 10:02 - Cardiology Event Note Patient with plan for CABG tomorrow. Cardiology will sign off, will arrange CABG Follow up with [facility]. Please re-consult if needed.
[2019-02-23] MEDS: Heparin 25,000 UNIT/250 ML D5W 25,000 UNIT/250 ML IV.SOLN IVC SCH (11:33)
--- NOTE | 2019-02-23 12:19 | Internal Med Progress Note ---
Hospitalist Progress Note - Encounter Date of Encounter: 02/23/19 Time of Encounter: 09:10 - Subjective Interval History: Patient seen at bedside. Denies chest pain, shortness of breath, palpitations. Denies fever, chills, rigors. No acute event overnight. - Exam Vitals: Temp Pulse Resp BP Pulse Ox 98.4 F 82 14 139/83 96 02/23/19 11:48 02/23/19 11:48 02/23/19 11:48 02/23/19 11:48 02/23/19 11:48 Exam: General: Alert and oriented, no physical distress, able to follow commands. HEENT: No thyromegaly, no lymphadenopathy, no discharge. Eyes: No discharge. Normal conjuctiva, no icterus Respiratory: Normal vesicular breathing, no added sounds, breathing equal in both sides. CVS: Normal heart sounds, no murmurs, regular rhthm, no edema Extremities: No peripheral edema, peripheral pulses intact. Lymph nodes: No lymphadenopathy Gastrointestinal: Soft, nontender abdomen, normal abdominal sounds. No distention noted. Genitourinary: No paravertebral tenderness. Skin: No rash, ulcers or wound. Neurological: Alert and oriented. No focal deficits. Cranial nerves II-XII intact. - Assessment and Plan (1) Acute ST elevation myocardial infarction (STEMI) of inferior wall Current Visit: Yes Status: Acute Assessment and Plan: Status post left heart catheter with PCI, per report dated 02/17/2019 severe triple-vessel disease of the coronary arteries CABG is planned for tomorrow morning Currently denies chest pain Continue aspirin. Continue to hold Brilinta Continue heparin drip, management as per cardiothoracic team. Will need DAP once done wiht the CABG (2) CAD (coronary artery disease) Current Visit: Yes Status: Acute Assessment and Plan: Status post [place], left heart catheter with PCI CABG planned for . Continue statin, metoprolol and aspirin (3) Diabetes mellitus Current Visit: Yes Status: Acute Assessment and Plan: A1c 7.6 [id number] glucose monitoring ranges from 130-220 Sligtly above goal COntinue LDSS Will put on basal bolus once done wiht the CABG. (4) DVT prophylaxis Current Visit: Yes Status: Acute Assessment and Plan: On heparin drip (5) Hyperlipidemia Current Visit: Yes Status: Chronic Assessment and Plan: On atorvastatin 80mg (6) Hypertension Current Visit: Yes Status: Chronic Assessment and Plan: Normotensive continue , metoprolol , amlodipine (7) Anemia Current Visit: Yes Status: Acute Assessment and Plan: Hemoglobin 11.7, No active bleeding Stool guaic negative No interventions planned - Time Spent with Patient Total time spent is greater than 50% in coordination of care (as documented) at patient's floor/unit and/or counseling patient: Internal Medicine: Result - Labs CBC & Chem 7: 02/23/19 04:25 02/23/19 04:25 Labs: Short CBC 02/22/19 02/22/19 02/23/19 Range/Units 12:19 19: 04:25 WBC 7.0 (4.3-11.1) K/mcL Hgb 12.2 L 12.4 L 11.7 L (12.9-16.9) g/dL Hct 37.3 L 38.1 35.4 L (37.5-50.1) % Plt Count 224 (140-400) K/mcL Neutrophils # 4.5 (1.6-8.9) K/mcL BMP 02/23/19 04:25 Sodium 141 Potassium 3.5 Chloride 106 Carbon Dioxide 24 BUN 18 Creatinine 0.83 Glucose 175 H Calcium 8.9 - ABG Interpretation ABG results: PT/INR, D-dimer PT 11.9 Seconds (9.4-12.1) 02/17/19 17:53 - VTE Reasons for not Prescribing Prophylaxis: Not indicated-Anticoagulated or INR therapeutic Consult Discharge Plan - Plan Referrals: NONE,PCP [Primary Care Provider] - _ (2) CAD (coronary artery disease) Qualifiers: Coronary Disease-Associated Artery/Lesion type: [place] artery [place] vs. transplanted heart: [place] heart Associated angina: angina presence unspecified Qualified Code(s): I25.10 - Atherosclerotic heart disease of [place] coronary artery without angina pectoris (3) Diabetes mellitus Qualifiers: Diabetes mellitus type: type 2 Diabetes mellitus fci insulin use: unspecified fci insulin use status Diabetes mellitus complication detail: with other circulatory complications (5) Hyperlipidemia Qualifiers: Hyperlipidemia type: mixed hyperlipidemia Qualified Code(s): E78.2 - Mixed hyperlipidemia (6) Hypertension Qualifiers: Hypertension type: essential hypertension Qualified Code(s): I10 - Essential (primary) hypertension (7) Anemia Qualifiers: Anemia type: unspecified type Qualified Code(s): D64.9 - Anemia, unspecified
--- NOTE | 2019-02-23 14:06 | Anesthesia Evaluation PreOp ---
Date of Encounter: 02/23/19 Time of Encounter: 14:03 - Past History Planned Operation: CABG Cardiac History: [place], HTN, Hyperlipidemia, Cardiac Stent (02/17/2019 RCA x 1) Pulmonary History: Denies Any Significant HX STACKER History: TIA (2012) Other Medical History: Diabetes Type II, GERD Anesthesia History: No Prior Anesthetic Complications, Past Anesthesia Alcohol Use: none Drug use: none Medications and Allergies Amlodipine Besylate 10 mg PO DAILY 02/17/19 [History] Aspirin [Lo-Dose Aspirin EC] 81 mg PO DAILY 02/17/19 [History] Cinnamon Bark [Cinnamon] 500 mg PO DAILY 02/17/19 [History] Dapagliflozin Propanediol [Farxiga] 5 mg PO DAILY 02/17/19 [History] Dulaglutide [Trulicity] 1.5 mg SQ MO 02/17/19 [History] Losartan Potassium 50 - 100 mg PO DAILY 02/17/19 [History] Metformin HCl [Metformin HCl ER] 1,000 mg PO DAILY 02/17/19 [History] Metoprolol Succinate [Toprol Xl] 25 mg PO DAILY 02/17/19 [History] Napoleon-3/Dha/Epa/Fish Oil [Fish Oil 1,000 mg Softgel] 1 cap PO DAILY 02/17/19 [History] Rosuvastatin Calcium 10 mg PO HS 02/17/19 [History] Allergy/AdvReac Type Severity Reaction Status Date / Time No Known Allergies Allergy Verified 02/17/19 21:13 - Meds/Allergy Pre-op Review Medications Reviewed: Yes Allergies Reviewed: Yes Beta Blockers on Current Med List: Yes (metoprolol) Anesthesia Results - Labs 02/23/19 04:25 02/23/19 04:25 - Imaging EKG: report reviewed (SINUS RHYTHM BORDERLINE LEFT AXIS DEVIATION RIGHT BUNDLE BRANCH BLOCK) Additional studies: LEFT HEART CATH 02/17/2019 PCI of Acute [place] Indications: STEMI ACS <= 24 hrs STEMI - Immediate PCI for Acute STEMI Impressions: There is severe three vessel coronary artery disease. Patient had successful PTCA/Drug-Eluting Stent placement in the proximal RCA. Recommendations: Optimal medical therapy of patient's disease. Aggressive risk factor modification. Brilinita 90mg BID Suggest patient have Elective coronary artery bypass surgery. LV Ventriculography Ejection Method: LV Gram Ejection Fraction: 50% Wall Motion: JUAREZ Anterobasal Normal Anterolateral Normal Apical: Normal Inferoapical Mild Hypokinesis Inferobasal Mild Hypokinesis Coronary Dominance: right Lesion Findings/Interventions * Left Main Coronary Artery The LMCA is angiographically free of disease. * Left Anterior Descending There is a 90% stenosis in the Mid LAD. There is a 50% stenosis in the Distal LAD. There is myocardial bridging. There are L to R collaterals present. * Circumflex There is a 90% stenosis in the proximal 1st Marginal. * Right Coronary Artery There is a 38 mm long, 100% stenosis in the Proximal RCA. The lesion has a DANIEL flow of 0 and has no thrombus present. An intervention was performed on the Proximal RCA with a final stenosis of 0%. There were no lesion complications. The final DANIEL flow was 3. There is a 70% stenosis in the Distal RCA. There is a 100% stenosis in the Right PDA. 02/18/2019 echocardiogram w enhance Impressions: LVEF 55%. Normal LV chamber size, wall thickness and overall function. Mild segmental left ventricular systolic dysfunction. Pseudonormal left ventricular diastolic dysfunction. Normal right ventricular structure and function. No evidence of pulmonary hypertension. No significant valvular dysfunction. carotid US 02/18/2019 Impressions: The right internal carotid artery has a 40-59% stenosis. The left internal carotid artery has a 40-59% stenosis. Anesthesia Exam Vital Signs/O2 Sat/Glucose, Most Recent Temp Pulse Resp BP Pulse Ox 98.4 F 82 14 139/83 96 02/23/19 11:48 02/23/19 11:48 02/23/19 11:48 02/23/19 11:48 02/23/19 11:48 Blood Glucose* 222 Weight: 102 kg NPO (# of Hours): midnight - HEENT Pupil (Motor): Pupils equal Mallampati: III Teeth: Poor dentition Oral Opening: Greater than 3 - STACKER LOC: Oriented STACKER Motor: Normal RUE, Normal LUE, Normal RLE, Normal LLE, Normal Face STACKER Sensory: Normal: RUE, LUE, RLE, LLE, Face - Cardiac Rhythm: Regular Murmur: None - Pulmonary Breath Sounds: bilateral Clear Respiratory Effort: Symmetrical Anesthesia Assess/Plan ASA Score: 4 Level of consciousness: Cooperative, Oriented Anesthetic Plan: General Monitoring Plan: Standard Monitors, A-Line, CVC, PAC, JAMESON Recovery Plan: ICU
[2019-02-23] MEDS: Chlorhexidine Rinse 15 ML MOUTHWASH MM SCH (21:15)
[2019-02-24 05:55] LABS: Basophils % 0.6 %; Eosinophils # 0.2 K/mcL (0.0-0.6); Eosinophils % 3.1 %; Hematocrit 37.4 % (37.5-50.1); Hemoglobin 12.2 g/dL (12.9-16.9); Immature Granulocytes % 0.3 % (0-4); Lymphocytes # 1.9 K/mcL (0.6-4.6); Lymphocytes % 26.5 %; Mean Corpuscular HGB Conc 32.6 g/dL (31.6-35.5); Mean Corpuscular Hemoglobin 27.9 pg (28.0-33.3); Mean Corpuscular Volume 85.6 fL (83.0-100.0); Mean Platelet Volume 10.7 fL (9.4-12.4); Monocytes # 0.8 K/mcL (0.0-1.3); Monocytes % 10.5 %; Neutrophils # 4.2 K/mcL (1.6-8.9); Platelet Count 237 K/mcL (140-400); Red Blood Count 4.37 M/mcL (4.19-5.50); Red Cell Distribution Width 13.2 % (11.5-14.5); White Blood Count 7.2 K/mcL (4.3-11.1)
[2019-02-24] MEDS: Chlorhexidine Rinse 15 ML MOUTHWASH MM SCH ×2 (05:58→21:50)
[2019-02-24] MEDS ORDERED: CeFAZolin Syr 2,000MG/20 ML 2,000 MG/20 ML SYRINGE IVPB ONE (06:00)
[2019-02-24 06:04] LABS: INR 1.1
[2019-02-24] MEDS ORDERED: Verapamil 5 MG/2 ML VIAL ONE (06:46)
[2019-02-24 06:52] LABS: BUN/Creatinine Ratio 22 (6-26); Blood Urea Nitrogen 17 mg/dL (6-20); Calcium 9.2 mg/dL (8.6-10.3); Carbon Dioxide 23 mEq/L (23-29); Chloride 106 mEq/L (98-107); Glucose 183 mg/dL (70-105); Magnesium 1.8 mg/dL (1.6-2.6); Osmolality,Calculated 294 (280-300); Potassium 3.3 mEq/L (3.5-5.1); Sodium 139 mEq/L (136-145); eGFR For African Americans > 60 (> 60); eGFR For Non-African Americans > 60 (> 60)
[2019-02-24] MEDS ORDERED: Nitroglycerin 25 MG/250 ML INFUS..BTL IVC ONE (07:05)
[2019-02-24] MEDS ORDERED: *HR* PHENYLEPHRINE 1,000 MCG/10 ML SYRINGE IVP ONE (07:07)
[2019-02-24] MEDS ORDERED: Dexamethasone 4 MG/ML VIAL ONE (07:07)
[2019-02-24] MEDS ORDERED: *HR* Propofol 200 MG/20 ML VIAL IVP ONE (07:07)
[2019-02-24] MEDS ORDERED: *HR* Midazolam HCl 5 MG/5 ML VIAL IVP ONE (07:07)
[2019-02-24] MEDS ORDERED: *HR* FentaNYL (PF) 1,000 MCG/20 ML VIAL ONE (07:07)
[2019-02-24] MEDS ORDERED: Famotidine 20 MG/2 ML VIAL ONE (07:07)
[2019-02-24] MEDS ORDERED: *HR* Magnesium Sulfate 1 GM/2 ML VIAL ONE (07:07)
[2019-02-24] MEDS ORDERED: *HR* Rocuronium Bromide 50 MG/5 ML VIAL ONE ×3 (07:07→09:27)
[2019-02-24] MEDS ORDERED: Tranexamic Acid 1,000 MG/10 ML VIAL ONE (07:09)
[2019-02-24] MEDS ORDERED: Lidocaine 2% Syringe 100 MG/5 ML ONE (07:11)
[2019-02-24] MEDS ORDERED: Dextrose 50 % in Water (Vial) 30 ML, Sodium Bicarbonate 20 MEQ, Lidocaine 1% 5 ML, Insu... TH ONE ×3 (07:45)
[2019-02-24] MEDS ORDERED: Heparin 15,000 UNIT in 0.9 % Sodium Chloride 500 ML IV ONE (07:45)
[2019-02-24] MEDS ORDERED: Dextrose 50 % in Water (Vial) 30 ML, Sodium Bicarbonate 20 MEQ, Potassium Chloride 15 M... TH ONE (07:45)
[2019-02-24] MEDS ORDERED: Norepinephrine 4 MG in 0.9 % Sodium Chloride 250 ML IVC PRN (07:45)
[2019-02-24] MEDS ORDERED: Insulin Human Regular 100 UNIT in 0.9 % Sodium Chloride 100 ML IV PRN (07:45)
[2019-02-24 08:06] LABS: ABG Base Excess -2 mEq/L (-2 to 3); ABG Chloride 108 mEq/L (98-107); ABG Glucose 180 mg/dL (60-95); ABG HCO3 23 mEq/L (21-27); ABG Ionized Calcium 1.27 mmol/L (1.15-1.35); ABG Oxygen Saturation 100 % (95-98); ABG PCO2 42 mmHg (35-45); ABG PH 7.36 pH Units (7.32-7.45); ABG PO2 423 mmHg (85-104); ABG TCO2 25 mEq/L (20-26)
[2019-02-24 09:08] LABS: ABG Base Excess -3 mEq/L (-2 to 3); ABG Chloride 109 mEq/L (98-107); ABG Glucose 174 mg/dL (60-95); ABG HCO3 22 mEq/L (21-27); ABG Ionized Calcium 1.18 mmol/L (1.15-1.35); ABG Oxygen Saturation 100 % (95-98); ABG PCO2 37 mmHg (35-45); ABG PH 7.38 pH Units (7.32-7.45); ABG PO2 272 mmHg (85-104); ABG TCO2 23 mEq/L (20-26)
[2019-02-24] MEDS ORDERED: Protamine Sulfate 250 MG/25 ML VIAL IVP ONE (09:27)
[2019-02-24] MEDS ORDERED: Calcium Gluconate 1,000 MG/10 ML VIAL ONE (09:27)
[2019-02-24 09:45] LABS: ABG Base Excess -2 mEq/L (-2 to 3); ABG Chloride 103 mEq/L (98-107); ABG Glucose 233 mg/dL (60-95); ABG HCO3 22 mEq/L (21-27); ABG Ionized Calcium 1.07 mmol/L (1.15-1.35); ABG Oxygen Saturation 100 % (95-98); ABG PCO2 36 mmHg (35-45); ABG PO2 447 mmHg (85-104); ABG TCO2 24 mEq/L (20-26)
--- NOTE | 2019-02-24 09:55 | Anesthesia Procedures ---
Date of Encounter: 02/24/19 Time of Encounter: 09:54 Procedures: Anesthesia - Arterial Line Consent obtained: written consent Time out performed: Yes Sedation: Versed (mg): 2 Sedation: Fentanyl (mcg): 100 Supplemental Oxygen via Nasal Cannula (L/min): 4 Local Anesthetic: Lidocaine 1% Amount of Anesthetic used (mls): 0.2 Size (Gauge): 20 Length (inches): 1 3/4 Technique Used: sterile prep, direct puncture technique Post-Procedure: line taped into place, dry sterile dressing placed Patient tolerated procedure: well, no complications Complications: none Site: Radial L - Central Line Placement Right IJ Consent obtained: written consent Time out performed: Yes Patient placed on monitor/pulse ox: Yes MD prep: mask, gown, gloves Central line prep: Chlorhexidine scrub Local Anesthetic Used: Other (general anesthesia ) Ultrasound used for placement: Yes Technique: Seldinger Lumen Inserted: single Size / Length: 9 Fr / 10 cm Post procedure: sutured in place, good blood return, sterile dressing applied Patient tolerated procedure: well, no complications Complications: none Comments: PAC inserted to 47 cm
[2019-02-24 10:10] LABS: ABG Base Excess -1 mEq/L (-2 to 3); ABG Chloride 103 mEq/L (98-107); ABG Glucose 249 mg/dL (60-95); ABG HCO3 23 mEq/L (21-27); ABG Oxygen Saturation 100 % (95-98); ABG PCO2 36 mmHg (35-45); ABG PH 7.42 pH Units (7.32-7.45); ABG PO2 383 mmHg (85-104); ABG TCO2 24 mEq/L (20-26)
[2019-02-24 10:29] LABS: ABG Base Excess -1 mEq/L (-2 to 3); ABG Chloride 105 mEq/L (98-107); ABG Glucose 239 mg/dL (60-95); ABG HCO3 24 mEq/L (21-27); ABG Ionized Calcium 1.11 mmol/L (1.15-1.35); ABG Oxygen Saturation 100 % (95-98); ABG PCO2 42 mmHg (35-45); ABG PH 7.37 pH Units (7.32-7.45); ABG PO2 298 mmHg (85-104); ABG TCO2 26 mEq/L (20-26)
[2019-02-24 11:06] LABS: ABG Base Excess -3 mEq/L (-2 to 3); ABG Chloride 107 mEq/L (98-107); ABG Glucose 191 mg/dL (60-95); ABG HCO3 22 mEq/L (21-27); ABG Ionized Calcium 1.25 mmol/L (1.15-1.35); ABG Oxygen Saturation 100 % (95-98); ABG PCO2 38 mmHg (35-45); ABG PH 7.37 pH Units (7.32-7.45); ABG PO2 372 mmHg (85-104); ABG TCO2 23 mEq/L (20-26)
[2019-02-24] MEDS ORDERED: Insulin Regular, Human 100 UNIT/ML IV PRN (11:42)
[2019-02-24] MEDS ORDERED: Potassium Chloride 40 MEQ/200 ML BAG IVPB PRN (11:42)
[2019-02-24] MEDS ORDERED: *HR* Promethazine 25 MG/ML VIAL IVP PRN (11:42)
[2019-02-24] MEDS ORDERED: Ondansetron 4 MG/2 ML VIAL IVP PRN (11:42)
[2019-02-24] MEDS ORDERED: *HR* Dextrose 50 % in Water (Syg) 50 ML SYRINGE IVP PRN (11:42)
[2019-02-24] MEDS ORDERED: Naloxone 0.4 MG/ML INJ IVP PRN (11:42)
[2019-02-24] MEDS ORDERED: Insulin Human Regular 100 UNIT in 0.9 % Sodium Chloride 100 ML IVC SCH (11:45)
[2019-02-24] MEDS ORDERED: Norepinephrine 4 MG in 0.9 % Sodium Chloride 250 ML IVC SCH (11:45)
[2019-02-24 12:10] LABS: ABG Base Excess -2 mEq/L (-2 to 3); ABG HCO3 24 mEq/L (21-27); ABG Oxygen Saturation 100 % (95-98); ABG PCO2 45 mmHg (35-45); ABG PH 7.33 pH Units (7.32-7.45); ABG PO2 429 mmHg (85-104); ABG TCO2 25 mEq/L (20-26); Blood Gas Modality AF; Blood Gas PEEP 5 cm H2O; Blood Gas VT 500 cc
[2019-02-24 12:25] LABS: Basophils % 0.2 %; Eosinophils # 0.1 K/mcL (0.0-0.6); Eosinophils % 0.9 %; Hematocrit 24.3 % (37.5-50.1); Immature Granulocytes % 0.8 % (0-4); Lymphocytes # 1.1 K/mcL (0.6-4.6); Lymphocytes % 8.5 %; Mean Corpuscular HGB Conc 32.9 g/dL (31.6-35.5); Mean Corpuscular Hemoglobin 28.2 pg (28.0-33.3); Mean Corpuscular Volume 85.6 fL (83.0-100.0); Mean Platelet Volume 10.9 fL (9.4-12.4); Monocytes % 8.2 %; Platelet Count 140 K/mcL (140-400); Red Blood Count 2.84 M/mcL (4.19-5.50); Red Cell Distribution Width 13.2 % (11.5-14.5); Segmented Neutrophils % 81.4 %
[2019-02-24 12:28] LABS: Neutrophils # 10.3 K/mcL (1.6-8.9); White Blood Count 12.7 K/mcL (4.3-11.1)
--- NOTE | 2019-02-24 12:34 | Anesthesia Evaluation Post Op ---
Date of Encounter: 02/24/19 Time of Encounter: 12:33 - Vital Signs Vital Signs: Vital Signs/O2 Sat/Glucose, Most Recent Temp Pulse Resp BP Pulse Ox 97.8 F 79 17 148/88 97 02/24/19 05:04 02/24/19 05:04 02/24/19 05:04 02/24/19 05:04 02/24/19 05:04 Blood Glucose* 170 - Lungs Lungs: Clear Ascult./Percussion - Airway Airway: Intubated - Cardiovascular Regular Rate - Mental Status Mental Status: Sedated - Pain Pain Scale used: Unable to assess - Nausea Vomiting Nausea Vomiting: Unable to assess - Hydration Hydration: NPO - Discharge Attestation: patient POD#0 CABG recovering in ICU
[2019-02-24] MEDS: Aspirin 81 MG TAB.CHEW PO SCH (12:39)
[2019-02-24] MEDS: amLODIPine 5 MG TABLET PO SCH (12:39)
[2019-02-24] MEDS: Insulin LISPRO 300 UNITS/3 ML VIAL SQ SCH ×4 (12:39→21:50)
[2019-02-24 12:40] LABS: INR 1.2
[2019-02-24 12:41] LABS: BUN/Creatinine Ratio 16 (6-26); Blood Urea Nitrogen 14 mg/dL (6-20); Calcium 8.2 mg/dL (8.6-10.3); Carbon Dioxide 25 mEq/L (23-29); Chloride 109 mEq/L (98-107); Glucose 142 mg/dL (70-105); Osmolality,Calculated 293 (280-300); Potassium 3.3 mEq/L (3.5-5.1); Sodium 140 mEq/L (136-145); eGFR For African Americans > 60 (> 60); eGFR For Non-African Americans > 60 (> 60)
[2019-02-24 12:43] LABS: Activated Partial Thrombo Time 28.8 Seconds (26.0-36.0)
[2019-02-24] MEDS: *HR* OxyCODONE/APAP 5/325 TABLET PO PRN ×3 (12:49→21:43)
[2019-02-24] MEDS: Nitroglycerin 25 MG/250 ML INFUS..BTL IVC SCH (12:50)
[2019-02-24 12:51] LABS: Prothrombin Time 14.1 Seconds (9.4-12.1)
[2019-02-24] MEDS: 0.9 % Sodium Chloride 1,000 ML IVC SCH (12:52)
[2019-02-24] MEDS: niCARdipine 20 MG/200 ML MLS IVC SCH ×3 (12:53→19:56)
--- NOTE | 2019-02-24 12:56 | Operative Note ---
Date of procedure: 02/24/19 Pre-op diagnosis: Coronary artery disease Post-op diagnosis: same Procedure: Coronary artery bypass grafting 3 with the left internal mammary artery to the LAD and saphenous vein grafts to the obtuse marginal branch of the circumflex and posterolateral branch of the right coronary artery. Complications: None Anesthesia: GETA Surgeon: Ambrose Betancourt Was there an first assistant manager present: Yes Urologist: Junior Mon Estimated blood loss (cc): 500 Specimen: none Condition: critical Disposition: ICU Procedure in Detail: The patient is a 58-year-old gentleman who presented with a total occlusion of his right coronary artery and a troponin of 45. The right coronary artery was opened in the cardiac catheterization lab and a coated stent was placed. The patient is diabetic and had triple-vessel disease and was referred for surgery. He was brought to the operating room today where he underwent a general anesthetic and was prepped and draped in standard fashion. The right greater saphenous vein was harvested from the ankle up to the groin. This was done through 2 small incisions using a scope. The incisions were subsequently closed using a deep layer of 2-0 Vicryl and a 3-0 Vicryl subcuticular stitch. Standard median sternotomy was performed. The left internal mammary artery was harvested with the Bovie electrocoagulation in standard fashion. The mammary retractor was removed and the standard sternal harvest contractor was inserted. Pericardium was opened in the midline and suspended with 2-0 silk stay sutures. A double pursestring of 200 [place] was placed in the aorta for the aortic cannulation site. A pursestring of 20 [place] was placed in the right atrial appendage for the venous uptake. The patient was heparinized. The aorta was cannulated without difficulty. 2 stage venous uptake cannula was inserted through the right atrial appendage. A pursestring of 3-0 silk was placed in the aorta and the cardioplegia needle was inserted through here. This was also used as an a ctive and passive aortic vent. The patient was placed on cardiopulmonary bypass and cooled to 34.9 degrees. At this point, the aorta was crossclamped and a liter of antegrade cardioplegia was given. Attention was first turned to the circumflex. The obtuse marginal branch was dissected free with the [place] Ira blade and opened with the [place] blade and the Le scissors. This had a lumen of 1-1/2 mm with moderate plaquing throughout. A standard end-to-side anastomosis was constructed using the saphenous vein and a 7-0 Prolene. When this is completed, the patient received an additional dose of antegrade cardioplegia. Attention was turned to the right coronary artery. The posterior descending branch was totally occluded and diffusely diseased and not graftable. The posterolateral branch was dissected free with the [place] Ira blade and opened with a [place] Ira blade and the Le scissors. This had a lumen of 1-1/2 mm and was relatively free of disease. A standard end-to-side anastomosis was constructed using the saphenous vein and a 7-0 Prolene. At this point, the patient received a last dose of antegrade cardioplegia. Attention was turned to the LAD. The LAD was dissected free distally with the [place] Ira blade and opened with a [place] blade and the Le scissors. It had a lumen of 1/2 mm with moderate diffuse disease throughout. A standard end-to-side anastomosis was constructed using the mammary artery and a 7-0 Prolene. When this is completed, the previously placed bulldog clamp was removed. Pedicle was tacked to the surface of the heart using 2 interrupted 5-0 silk sutures. Cross-clamp was removed and rewarming was begun. A side-biting clamp was placed on the aorta and the cardioplegia needle was removed. 2 holes were made in the aorta using the [place] blade and the 4.0 mm aortic punch. 2 proximal anastomoses were constructed in standard fashion using the saphenous veins and 5-0 Prolene's. When this was completed, the side-biting clamp was removed. Grafts were de- aired using a #25-gauge needle and the previously placed bulldog clamps were removed. Distal anastomoses were inspected and found to be hemostatic. Proximal anastomoses were marked with a marker from [employer]. A pair of ventricular pacing wires was left. A 32 right angle chest tube to the left pleural space. A 32 right angle chest tube to the pericardial well. A 42 mediastinal chest tube. I did place an additional 7-0 Prolene suture at the distal tip of the CODY anastomosis. We also placed some hemoblast and fibrillar. The patient was weaned from bypass and decannulated. I did place an additional suture of 4-0 Prolene in the right atrial appendage to obtain hemostasis. Hemostasis was good and the hemodynamics were good. Pericardium was loosely closed with interrupted 2-0 silk sutures. We did use platelet rich and platelet poor plasma to the sternum and tissues above the sternum. Sternum was closed with #7 sternal wires in simple and [id number]-xv-[id number] fashion. The fascia from with #1 Vicryl. Subcutaneous tissues with a 2-0 Vicryl. Skin was closed with a 3-0 Vicryl subcuticular stitch. The patient tolerated the procedure well and was returned intensive care unit in satisfactory and stable condition. Total bypass time was 82 minutes. Total cross-clamp time was 42 minutes. He been cooled to 34.9 degrees.
--- NOTE | 2019-02-24 15:25 | Event Note ---
Date of Encounter: 02/24/19 Time of Encounter: 08:00 PT is being taken for the CABG today and will be transferred to the ICU following that. Further management as per cardiothoracic surgery services. WIll sign off. Please consult if required. Also discussed with the ICU hospitalist who will follow up if hospitalist services required.
[2019-02-24 15:54] LABS: ABG Base Excess -1 mEq/L (-2 to 3); ABG HCO3 23 mEq/L (21-27); ABG Oxygen Saturation 98 % (95-98); ABG PCO2 37 mmHg (35-45); ABG PO2 98 mmHg (85-104); ABG TCO2 24 mEq/L (20-26); Blood Gas Modality AF; Blood Gas PEEP 5 cm H2O; Blood Gas VT 500 cc
[2019-02-24 15:59] LABS: Hematocrit 32.6 % (37.5-50.1); Hemoglobin 10.9 g/dL (12.9-16.9)
[2019-02-24] MEDS: *HR* FentaNYL (PF) 100 MCG/2 ML VIAL IVP PRN ×3 (18:41→23:36)
[2019-02-24 20:16] LABS: ABG Base Excess -3 mEq/L (-2 to 3); ABG HCO3 22 mEq/L (21-27); ABG Oxygen Saturation 98 % (95-98); ABG PCO2 35 mmHg (35-45); ABG PO2 108 mmHg (85-104); ABG TCO2 23 mEq/L (20-26)
[2019-02-25] MEDS: niCARdipine 20 MG/200 ML MLS IVC SCH ×3 (00:39→06:55)
[2019-02-25] MEDS: 0.9 % Sodium Chloride 1,000 ML IVC SCH (02:51)
[2019-02-25 04:29] LABS: Basophils % 0.1 %; Hematocrit 32.4 % (37.5-50.1); Hemoglobin 10.3 g/dL (12.9-16.9); Immature Granulocytes % 0.4 % (0-4); Lymphocytes # 1.2 K/mcL (0.6-4.6); Lymphocytes % 8.6 %; Mean Corpuscular HGB Conc 31.8 g/dL (31.6-35.5); Mean Corpuscular Hemoglobin 27.8 pg (28.0-33.3); Mean Corpuscular Volume 87.6 fL (83.0-100.0); Mean Platelet Volume 10.8 fL (9.4-12.4); Monocytes # 1.7 K/mcL (0.0-1.3); Monocytes % 12.2 %; Platelet Count 174 K/mcL (140-400); Red Cell Distribution Width 13.7 % (11.5-14.5); Segmented Neutrophils % 78.7 %
[2019-02-25 04:46] LABS: BUN/Creatinine Ratio 19 (6-26); Blood Urea Nitrogen 13 mg/dL (6-20); Calcium 8.1 mg/dL (8.6-10.3); Carbon Dioxide 22 mEq/L (23-29); Chloride 112 mEq/L (98-107); Glucose 123 mg/dL (70-105); Osmolality,Calculated 291 (280-300); Potassium 4.1 mEq/L (3.5-5.1); Sodium 140 mEq/L (136-145); eGFR For African Americans > 60 (> 60); eGFR For Non-African Americans > 60 (> 60)
[2019-02-25] MEDS: Nitroglycerin 25 MG/250 ML INFUS..BTL IVC SCH (06:02)
[2019-02-25] MEDS: *HR* FentaNYL (PF) 100 MCG/2 ML VIAL IVP PRN (06:24)
[2019-02-25] MEDS: Insulin LISPRO 300 UNITS/3 ML VIAL SQ SCH ×4 (06:55→20:59)
--- NOTE | 2019-02-25 08:44 | Cardiothoracic Progress Note ---
Date of Encounter: 02/25/19 Time of Encounter: 08:42 - Assessment and plan (1) ST elevation myocardial infarction (STEMI) Current Visit: Yes Status: Acute The patient had preoperative anemia with a hemoglobin of 11. This was the chronic anemia of chronic disease. He also has acute, postoperative blood loss anemia. He has not required transfusion so far. We will transfer the patient to the floor. We will discontinue the IV fluids, Gibbs catheter, [place]Basilio catheter and arterial line. Qualifiers: Involved coronary artery: right coronary artery Qualified Code(s): I21.11 - ST elevation (STEMI) myocardial infarction involving right coronary artery - Subjective Interval history: The patient has only mild postoperative pain. He is extubated and has no other complaints. Vital Signs, Last 4 Hours Temp Pulse Resp BP Pulse Ox 02/25/19 08:11 98.9 F 02/25/19 07:45 18 10 02/25/19 07:00 98.4 F 96 20 112/43 100 02/25/19 06:00 96 18 93/48 98 02/25/19 05:00 111 28 123/66 99 Oxgyen Flow Rate Oxygen Flow Rate (LPM) 3 Clinical Data, last 8 Hours Output, Chest Tube Drainage 10 Amount [Mediastinal #3] Output, Chest Tube Drainage 20 Amount [Mediastinal #3] Output, Chest Tube Drainage 20 Amount [Mediastinal #3] Output, Chest Tube Drainage 0 Amount [Mediastinal #3] Output, Chest Tube Drainage 5 Amount [Mediastinal #3] Output, Chest Tube Drainage 5 Amount [Mediastinal #3] Output, Chest Tube Drainage 2 Amount [Mediastinal #2] Output, Chest Tube Drainage 0 Amount [Mediastinal #2] Output, Chest Tube Drainage 10 Amount [Mediastinal #2] Output, Chest Tube Drainage 2 Amount [Mediastinal #2] Output, Chest Tube Drainage 0 Amount [Mediastinal #2] Output, Chest Tube Drainage 0 Amount [Mediastinal #2] Output, Chest Tube Drainage 5 Amount [Mediastinal #1] Output, Chest Tube Drainage 15 Amount [Mediastinal #1] Output, Chest Tube Drainage 10 Amount [Mediastinal #1] Output, Chest Tube Drainage 10 Amount [Mediastinal #1] Output, Chest Tube Drainage 15 Amount [Mediastinal #1] Weight 02/23/19 02/24/19 02/25/19 23:59 23:59 23:59 Weight 102.6 kg 58.4 kg Lungs are clear to percussion and auscultation. Heart is in a normal sinus rhythm. All incisions are healing well without signs of infection and the sternum is stable. Chest tube drainage is minimal. The chest tubes and pacing wires were removed. - Labs 02/25/19 04:09 02/25/19 04:09 Lab Results, Last 24 hours 02/24/19 02/24/19 02/24/19 12:20 12:20 12:20 WBC 12.7 H D Hgb 8.0 L D Hct 24.3 L Plt Count 140 INR 1.2 APTT 28.8 Sodium 140 Potassium 3.3 L Chloride 109 H Carbon Dioxide 25 BUN 14 Creatinine 0.87 Glucose 142 H Calcium 8.2 L Magnesium 3.0 H 02/24/19 02/24/19 02/24/19 15:56 15:56 20:10 WBC Hgb 10.9 L D Hct 32.6 L Plt Count INR APTT Sodium Potassium 3.5 4.0 Chloride Carbon Dioxide BUN Creatinine Glucose Calcium Magnesium 02/25/19 02/25/19 04:09 04:09 WBC 14.0 H Hgb 10.3 L Hct 32.4 L Plt Count 174 INR APTT Sodium 140 Potassium 4.1 Chloride 112 H Carbon Dioxide 22 L BUN 13 Creatinine 0.70 Glucose 123 H Calcium 8.1 L Magnesium - VTE Reasons for not Prescribing Prophylaxis: Not indicated-Anticoagulated or INR therapeutic Documentation of Mechanical Device: Graduated compression elastic hosiery Consult Discharge Plan - Plan Referrals: NONE,PCP [Primary Care Provider] -
[2019-02-25] MEDS: Aspirin 81 MG TAB.CHEW PO SCH (08:52)
[2019-02-25] MEDS: Chlorhexidine Rinse 15 ML MOUTHWASH MM SCH ×2 (08:52→20:57)
[2019-02-25] MEDS: amLODIPine 5 MG TABLET PO SCH (08:53)
[2019-02-25] MEDS ORDERED: Pantoprazole 40 MG VIAL IVP SCH (09:00)
[2019-02-25] MEDS ORDERED: Ondansetron 4 MG/2 ML VIAL IVP PRN (09:05)
[2019-02-25] MEDS ORDERED: Acetaminophen 325 MG TABLET PO PRN (09:05)
[2019-02-25] MEDS ORDERED: *HR* Dextrose 50 % in Water (Syg) 50 ML SYRINGE IVP PRN (09:05)
[2019-02-25] MEDS ORDERED: *HR* Promethazine 25 MG/ML VIAL IVP PRN (09:05)
[2019-02-25] MEDS ORDERED: D5% in Water 1,000 ML IVC PRN (09:05)
[2019-02-25] MEDS ORDERED: Dextrose Gel 15 GM/37.5 ML TUBE PO PRN ×2 (09:05)
[2019-02-25] MEDS ORDERED: Naloxone 0.4 MG/ML INJ IVP PRN (09:05)
--- NOTE | 2019-02-25 10:57 | Electrocardiograph Report ---
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
[2019-02-25] MEDS: *HR* OxyCODONE/APAP 5/325 TABLET PO PRN ×2 (13:32→19:33)
[2019-02-25] MEDS: *HR* Heparin 5,000 UNIT/ML VIAL SQ SCH (17:16)
[2019-02-25] MEDS: Insulin DETEMIR 100 UNIT/ML X5UNITS SQ SCH (20:59)
[2019-02-26] MEDS: *HR* OxyCODONE/APAP 5/325 TABLET PO PRN ×5 (00:36→21:36)
[2019-02-26 02:26] LABS: Basophils % 0.1 %; Hematocrit 29.6 % (37.5-50.1); Hemoglobin 9.4 g/dL (12.9-16.9); Immature Granulocytes % 0.5 % (0-4); Lymphocytes # 1.5 K/mcL (0.6-4.6); Mean Corpuscular HGB Conc 31.8 g/dL (31.6-35.5); Mean Corpuscular Hemoglobin 28.2 pg (28.0-33.3); Mean Corpuscular Volume 88.9 fL (83.0-100.0); Mean Platelet Volume 11.2 fL (9.4-12.4); Monocytes # 1.9 K/mcL (0.0-1.3); Monocytes % 14.2 %; Neutrophils # 9.8 K/mcL (1.6-8.9); Platelet Count 160 K/mcL (140-400); Red Blood Count 3.33 M/mcL (4.19-5.50); Red Cell Distribution Width 14.3 % (11.5-14.5); Segmented Neutrophils % 74.2 %; White Blood Count 13.2 K/mcL (4.3-11.1)
[2019-02-26 02:45] LABS: BUN/Creatinine Ratio 23 (6-26); Blood Urea Nitrogen 28 mg/dL (6-20); Calcium 8.5 mg/dL (8.6-10.3); Carbon Dioxide 25 mEq/L (23-29); Chloride 106 mEq/L (98-107); Glucose 252 mg/dL (70-105); Osmolality,Calculated 298 (280-300); Potassium 4.2 mEq/L (3.5-5.1); Sodium 137 mEq/L (136-145); eGFR For African Americans > 60 (> 60); eGFR For Non-African Americans > 60 (> 60)
[2019-02-26] MEDS: *HR* Heparin 5,000 UNIT/ML VIAL SQ SCH ×2 (06:21→17:19)
[2019-02-26] MEDS: Insulin LISPRO 300 UNITS/3 ML VIAL SQ SCH ×4 (08:27→21:17)
[2019-02-26] MEDS: Aspirin 81 MG TAB.CHEW PO SCH (08:28)
[2019-02-26] MEDS: Pantoprazole 40 MG VIAL IVP SCH (08:28)
[2019-02-26] MEDS: Chlorhexidine Rinse 15 ML MOUTHWASH MM SCH ×2 (08:28→21:16)
--- NOTE | 2019-02-26 10:10 | Cardiothoracic Progress Note ---
Date of Encounter: 02/26/19 Time of Encounter: 10:07 Discussion with patient/family: Cardio heart rate elevated currently on metoprolol 25 by mouth twice a day. No room to increase this. We will monitor. Respiratorychest x-ray pending. On room air RenalBUN/creatinine elevated today to 30 and 1.2. We will hold off on diuresis as patient is on room air. Weight pending Hemoglobin relatively stable, platelet stable. Neurointact pain controlled Will obtain peripheral lines and remove central line in a.m. - Subjective Interval history: Patient was transferred to the floor is doing well. He has no complaints. He just completed a bath. He is sitting in chair. He denies shortness of breath or chest pains. He had poor sleeping last night Vital Signs, Last 4 Hours Temp Pulse Resp BP Pulse Ox 02/26/19 07:51 16 94 02/26/19 07:18 98.5 F 106 18 111/72 93 Oxgyen Flow Rate Oxygen Flow Rate (LPM) 3 Clinical Data, last 8 Hours Output, Urine Amount 350 Weight 02/24/19 02/25/19 02/26/19 23:59 23:59 23:59 Weight 58.4 kg - Physical Examination General: Conversant, No Apparent Distress HEENT: Atraumatic, Normocephaly, Trachea midline Neck: No JVD Cardiac: Other (Slight tachycardia in sinus rhythm) Incision: No signs of infection, Dry/intact dressing Sternum: Stable Lungs: Normal Breath Sounds Neuro: Alert and responsive, No focal deficits noted, Cranial nerves intact Vascular: Normal capillary refill, Other (Right lower extremity with mild edema. Left lower extremity with no edema.) - Labs 02/26/19 02:13 02/26/19 02:13 Lab Results, Last 24 hours 02/26/19 02/26/19 02:13 02:13 WBC 13.2 H Hgb 9.4 L Hct 29.6 L Plt Count 160 Sodium 137 Potassium 4.2 Chloride 106 Carbon Dioxide 25 BUN 28 H Creatinine 1.22 Glucose 252 H Calcium 8.5 L - Imaging Chest Xray: pending - VTE Reasons for not Prescribing Prophylaxis: Not indicated-Anticoagulated or INR therapeutic Documentation of Mechanical Device: Graduated compression elastic hosiery Consult Discharge Plan - Plan Referrals: Emmanuel Donovan MD [Partnered Physician] - 03/07/19 2:00 pm Barbie Ambrose CNP [Partnered Physician] - 03/24/19 11:00 am Ambrose Betancourt MD [Partnered Physician] - 03/17/19 1:15 pm
--- NOTE | 2019-02-26 14:49 | Internal Med Progress Note ---
Hospitalist Progress Note - Encounter Date of Encounter: 02/26/19 Time of Encounter: 10:15 - Subjective Interval History: Seen at bedside. GOt a cardiac bypass surgery on 02/24/2019, was transferred to ICU, moved out yesterday. Has been doing well. Denies any pain. Denies shortness of breath, fever, chills. No other overnight events. - Exam Vitals: Temp Pulse Resp BP Pulse Ox 98.4 F 103 16 110/68 93 02/26/19 11:17 02/26/19 11:17 02/26/19 11:18 02/26/19 11:17 02/26/19 11:18 Exam: General: Alert and oriented, no physical distress, able to follow commands. Respiratory: Normal vesicular breathing, no added sounds, breathing equal in both sides. CVS: Normal heart sounds, no murmurs, regular rhthm, no edema. Incision dressed without any discharge, Extremities: No peripheral edema, peripheral pulses intact. Gastrointestinal: Soft, nontender abdomen, normal abdominal sounds. No distention noted. Neurological: Alert and oriented. No focal deficits. Cranial nerves II-XII intact. - Assessment and Plan (1) Acute ST elevation myocardial infarction (STEMI) of inferior wall Current Visit: Yes Status: Acute Assessment and Plan: Status post left heart catheter with PCI, per report dated 02/17/2019 severe triple-vessel disease of the coronary arteries Status post cardaic bypass surgery 02/24/2019 Furtehr management as per cariothoracic surgery team. will sign off, consult as needed. (2) CAD (coronary artery disease) Current Visit: Yes Status: Acute (3) Diabetes mellitus Current Visit: Yes Status: Acute (4) DVT prophylaxis Current Visit: Yes Status: Acute (5) Hyperlipidemia Current Visit: Yes Status: Chronic (6) Hypertension Current Visit: Yes Status: Chronic (7) Anemia Current Visit: Yes Status: Acute (8) Acute kidney injury Current Visit: Yes Status: Acute - Time Spent with Patient Total time spent is greater than 50% in coordination of care (as documented) at patient's floor/unit and/or counseling patient: Internal Medicine: Result - Labs CBC & Chem 7: 02/26/19 02:13 02/26/19 02:13 Labs: Short CBC 02/26/19 Range/Units 02:13 WBC 13.2 H (4.3-11.1) K/mcL Hgb 9.4 L (12.9-16.9) g/dL Hct 29.6 L (37.5-50.1) % Plt Count 160 (140-400) K/mcL Neutrophils # 9.8 H (1.6-8.9) K/mcL BMP 02/26/19 02:13 Sodium 137 Potassium 4.2 Chloride 106 Carbon Dioxide 25 BUN 28 H Creatinine 1.22 Glucose 252 H Calcium 8.5 L - ABG Interpretation ABG results: ABG ABG pH 7.40 pH Units (7.32-7.45) 02/24/19 20:11 ABG pCO2 35 mmHg (35-45) 02/24/19 20:11 ABG pO2 108 mmHg (85-104) H 02/24/19 20:11 ABG O2 Saturation 98 % (95-98) 02/24/19 20:11 PT/INR, D-dimer PT 14.1 Seconds (9.4-12.1) H 02/24/19 12:20 - VTE Reasons for not Prescribing Prophylaxis: Not indicated-Anticoagulated or INR therapeutic Documentation of Mechanical Device: Graduated compression elastic hosiery Consult Discharge Plan - Plan Referrals: Emmanuel Donovan MD [Partnered Physician] - 03/07/19 2:00 pm Barbie Ambrose CNP [Partnered Physician] - 03/24/19 11:00 am Ambrose Betancourt MD [Partnered Physician] - 03/17/19 1:15 pm (2) CAD (coronary artery disease) Qualifiers: Coronary Disease-Associated Artery/Lesion type: [place] artery [place] vs. 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
[2019-02-26] MEDS: Insulin DETEMIR 100 UNIT/ML X5UNITS SQ SCH (21:17)
[2019-02-27 03:41] LABS: Hematocrit 27.7 % (37.5-50.1); Hemoglobin 8.6 g/dL (12.9-16.9); Red Blood Count 3.11 M/mcL (4.19-5.50); White Blood Count 10.8 K/mcL (4.3-11.1)
[2019-02-27 03:42] LABS: Basophils % 0.2 %; Eosinophils # 0.1 K/mcL (0.0-0.6); Eosinophils % 0.5 %; Immature Granulocytes % 0.5 % (0-4); Lymphocytes # 1.5 K/mcL (0.6-4.6); Lymphocytes % 14.1 %; Mean Corpuscular Hemoglobin 27.7 pg (28.0-33.3); Mean Corpuscular Volume 89.1 fL (83.0-100.0); Mean Platelet Volume 11.5 fL (9.4-12.4); Monocytes # 1.5 K/mcL (0.0-1.3); Monocytes % 13.6 %; Neutrophils # 7.7 K/mcL (1.6-8.9); Platelet Count 161 K/mcL (140-400); Red Cell Distribution Width 14.3 % (11.5-14.5); Segmented Neutrophils % 71.1 %
[2019-02-27 04:02] LABS: BUN/Creatinine Ratio 33 (6-26); Blood Urea Nitrogen 31 mg/dL (6-20); Carbon Dioxide 22 mEq/L (23-29); Chloride 106 mEq/L (98-107); Glucose 188 mg/dL (70-105); Osmolality,Calculated 294 (280-300); Potassium 3.8 mEq/L (3.5-5.1); Sodium 136 mEq/L (136-145); eGFR For African Americans > 60 (> 60); eGFR For Non-African Americans > 60 (> 60)
[2019-02-27] MEDS: *HR* Heparin 5,000 UNIT/ML VIAL SQ SCH ×2 (06:03→16:34)
[2019-02-27] MEDS: Aspirin 81 MG TAB.CHEW PO SCH (07:10)
[2019-02-27] MEDS: Chlorhexidine Rinse 15 ML MOUTHWASH MM SCH ×2 (07:11→20:22)
[2019-02-27] MEDS: *HR* OxyCODONE/APAP 5/325 TABLET PO PRN ×4 (07:11→21:49)
[2019-02-27] MEDS: Pantoprazole 40 MG VIAL IVP SCH (07:11)
[2019-02-27] MEDS: Insulin LISPRO 300 UNITS/3 ML VIAL SQ SCH ×5 (08:07→20:16)
[2019-02-27] MEDS ORDERED: Amiodarone Premix 150 MG/100 ML BAG IVPB ONE ×2 (09:20→10:01)
[2019-02-27] MEDS ORDERED: Amiodarone Premix 360 MG/200 ML BAG IVC ONE ×2 (09:21→10:01)
[2019-02-27] MEDS ORDERED: Amiodarone Premix 360 MG/200 ML BAG IVC SCH (09:30)
--- NOTE | 2019-02-27 09:52 | Cardiothoracic Progress Note ---
Date of Encounter: 02/27/19 Time of Encounter: 09:50 - Assessment and plan (1) ST elevation myocardial infarction (STEMI) Current Visit: Yes Status: Acute The assessment and plan as outlined above was discussed with the patient and/or family members who expressed understanding and agreement. All questions were answered. Postop day 3 status post CABG 3 Cardioheart rate mildly elevated we will give him amiodarone bolus and drip to convert A. fib. Also start oral amiodarone 200 mg by mouth daily. Increase beta rico metoprolol 37.5 mg by mouth twice a day Pulmonarychest x-ray pending, on room air, continue pulmonary toilet GIif no bowel movement today will give suppository this p.m. Eating well. RenalBUNs 31, creatinine 0.9. This is improved and I will start twice a day Lasix. Hemoglobinslight drop in hemoglobin that is most likely delusional. Endocrineblood sugars have been uncontrolled on high-dose insulin. We have increased his basal rate to accommodate this. I would hold off on anticoagulation for atrial fibrillation at this time. Hopeful plan for discharge in next 1-2 days. Qualifiers: Involved coronary artery: right coronary artery Qualified Code(s): I21.11 - ST elevation (STEMI) myocardial infarction involving right coronary artery - Subjective Interval history: He feels relatively well though he is unable to sleep. He denies shortness of breath or chest pains. No bowel movement as of yet though he feels as if he may have one. EKG yesterday showed atrial fibrillation. He was given 2 g of IV magnesium that did not change. Amiodarone IV bolus and drip pending. Despite this his blood pressure is stable. Vital Signs, Last 4 Hours Temp Pulse Resp BP Pulse Ox 02/27/19 07:28 18 94 02/27/19 07:23 98.8 F 105 18 129/82 94 Oxgyen Flow Rate Oxygen Flow Rate (LPM) 2 Clinical Data, last 8 Hours Output, Urine Amount 300 Weight 02/25/19 02/26/19 02/27/19 23:59 23:59 23:59 Weight 58.4 kg 107.5 kg - Physical Examination General: Conversant, No Apparent Distress HEENT: Atraumatic, Normocephaly, Trachea midline Neck: No JVD Cardiac: Other (Irregularly irregular rhythm) Incision: No signs of infection, Dry/intact dressing Sternum: Stable Lungs: Normal Breath Sounds Neuro: Alert and responsive, No focal deficits noted, Cranial nerves intact Vascular: Normal capillary refill (Minimal bilateral lower extremity edema) - Labs 02/27/19 03:21 02/27/19 03:21 Lab Results, Last 24 hours 02/27/19 02/27/19 03:21 03:21 WBC 10.8 Hgb 8.6 L Hct 27.7 L Plt Count 161 Sodium 136 Potassium 3.8 Chloride 106 Carbon Dioxide 22 L BUN 31 H Creatinine 0.94 Glucose 188 H Calcium 8.0 L - Imaging Chest Xray: pending - EKG Interpretation EKG results: personally reviewed (Atrial fibrillation with heart rate approximately 100) - VTE Reasons for not Prescribing Prophylaxis: Not indicated-Anticoagulated or INR therapeutic Documentation of Mechanical Device: Graduated compression elastic hosiery Consult Discharge Plan - Plan Referrals: Emmanuel Donovan MD [Partnered Physician] - 03/07/19 2:00 pm Barbie Ambrose CNP [Partnered Physician] - 03/24/19 11:00 am Ambrose Betancourt MD [Partnered Physician] - 03/17/19 1:15 pm
[2019-02-27] MEDS: *HR* Amiodarone 200 MG TABLET PO SCH (11:29)
[2019-02-27] MEDS: Furosemide 20 MG/2 ML VIAL IVP SCH (11:29)
[2019-02-27] MEDS ORDERED: Insulin LISPRO 300 UNITS/3 ML VIAL SQ ONE (11:35)
[2019-02-27] MEDS: Amiodarone Premix 360 MG/200 ML BAG IVC SCH (16:34)
[2019-02-27] MEDS: Insulin DETEMIR 100 UNIT/ML X5UNITS SQ SCH (20:22)
[2019-02-28 01:40] LABS: Basophils % 0.2 %; Eosinophils # 0.1 K/mcL (0.0-0.6); Eosinophils % 1.6 %; Hematocrit 26.5 % (37.5-50.1); Hemoglobin 8.4 g/dL (12.9-16.9); Immature Granulocytes % 0.8 % (0-4); Lymphocytes # 2.1 K/mcL (0.6-4.6); Lymphocytes % 23.2 %; Mean Corpuscular HGB Conc 31.7 g/dL (31.6-35.5); Mean Corpuscular Hemoglobin 27.6 pg (28.0-33.3); Mean Corpuscular Volume 87.2 fL (83.0-100.0); Mean Platelet Volume 11.4 fL (9.4-12.4); Monocytes # 1.2 K/mcL (0.0-1.3); Neutrophils # 5.5 K/mcL (1.6-8.9); Platelet Count 195 K/mcL (140-400); Red Blood Count 3.04 M/mcL (4.19-5.50); Red Cell Distribution Width 14.2 % (11.5-14.5); Segmented Neutrophils % 61.2 %; White Blood Count 8.9 K/mcL (4.3-11.1)
[2019-02-28 01:59] LABS: BUN/Creatinine Ratio 29 (6-26); Blood Urea Nitrogen 35 mg/dL (6-20); Calcium 8.4 mg/dL (8.6-10.3); Carbon Dioxide 22 mEq/L (23-29); Chloride 104 mEq/L (98-107); Glucose 215 mg/dL (70-105); Osmolality,Calculated 292 (280-300); Potassium 3.8 mEq/L (3.5-5.1); Sodium 134 mEq/L (136-145); eGFR For African Americans > 60 (> 60); eGFR For Non-African Americans > 60 (> 60)
[2019-02-28] MEDS: Amiodarone Premix 360 MG/200 ML BAG IVC SCH (04:16)
[2019-02-28] MEDS: *HR* Heparin 5,000 UNIT/ML VIAL SQ SCH ×2 (05:33→15:23)
[2019-02-28] MEDS: *HR* OxyCODONE/APAP 5/325 TABLET PO PRN ×3 (06:32→21:54)
--- NOTE | 2019-02-28 07:04 | Electrocardiograph Report ---
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
[2019-02-28] MEDS: Pantoprazole 40 MG VIAL IVP SCH (07:58)
[2019-02-28] MEDS: Chlorhexidine Rinse 15 ML MOUTHWASH MM SCH ×2 (07:58→21:54)
[2019-02-28] MEDS: Furosemide 20 MG/2 ML VIAL IVP SCH (07:58)
[2019-02-28] MEDS: Aspirin 81 MG TAB.CHEW PO SCH (07:58)
[2019-02-28] MEDS: *HR* Amiodarone 200 MG TABLET PO SCH (07:58)
[2019-02-28] MEDS: Insulin LISPRO 300 UNITS/3 ML VIAL SQ SCH ×4 (08:05→22:04)
--- NOTE | 2019-02-28 09:59 | Cardiothoracic Progress Note ---
Date of Encounter: 02/28/19 Time of Encounter: 09:57 - Assessment and plan (1) ST elevation myocardial infarction (STEMI) Current Visit: Yes Status: Acute The patient is recovering well from his CABG3. He developed postoperative atrial fibrillation with a controlled rate on an amiodarone drip. He is ambulating in the hallways without difficulty. A recent chest x-ray shows a small to moderate left pleural effusion. This will be monitored with serial chest x-rays. The assessment and plan as outlined above was discussed with the patient and/or family members who expressed understanding and agreement. All questions were answered. Qualifiers: Involved coronary artery: right coronary artery Qualified Code(s): I21.11 - ST elevation (STEMI) myocardial infarction involving right coronary artery - Subjective Procedure(s) Performed: POD#4 S/P CABG3 Interval history: The patient remained hemodynamic stable overnight. He is ambulating in the hallways without difficulty. He has no complaints. Vital Signs, Last 4 Hours Temp Pulse Resp BP Pulse Ox 02/28/19 07:40 18 92 02/28/19 07:00 98.6 F 91 18 123/77 94 Oxgyen Flow Rate Oxygen Flow Rate (LPM) 0 Weight 02/26/19 02/27/19 02/28/19 23:59 23:59 23:59 Weight 107.5 kg 108.2 kg - Physical Examination General: Conversant, No Apparent Distress Neck: No JVD, Normal carotid pulses Cardiac: Normal S1 and S2, No Murmur, Other (Irregular rate and rhythm (atrial fibrillation)) Incision: No signs of infection, Dry/intact dressing Sternum: Stable Lungs: Normal Breath Sounds, No Wheeze, Rales, Rhonchi Neuro: Alert and responsive, No focal deficits noted Vascular: Normal capillary refill Extremities: No Clubbing, No Cyanosis, No Edema - Labs 02/28/19 01:25 02/28/19 01:25 Lab Results, Last 24 hours 02/28/19 02/28/19 01:25 01:25 WBC 8.9 Hgb 8.4 L Hct 26.5 L Plt Count 195 Sodium 134 L Potassium 3.8 Chloride 104 Carbon Dioxide 22 L BUN 35 H Creatinine 1.22 Glucose 215 H Calcium 8.4 L - VTE Reasons for not Prescribing Prophylaxis: Not indicated-Anticoagulated or INR therapeutic Documentation of Mechanical Device: Graduated compression elastic hosiery Consult Discharge Plan - Plan Referrals: Emmanuel Donovan MD [Partnered Physician] - 03/07/19 2:00 pm Barbie Ambrose CNP [Partnered Physician] - 03/24/19 11:00 am Ambrose Betancourt MD [Partnered Physician] - 03/17/19 1:15 pm
--- NOTE | 2019-02-28 18:31 | Electrocardiograph Report ---
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
[2019-02-28] MEDS: Insulin DETEMIR 100 UNIT/ML X5UNITS SQ SCH (22:04)
[2019-03-01] MEDS: *HR* Heparin 5,000 UNIT/ML VIAL SQ SCH ×2 (04:54→16:30)
[2019-03-01] MEDS: *HR* OxyCODONE/APAP 5/325 TABLET PO PRN ×3 (04:54→21:10)
--- NOTE | 2019-03-01 07:29 | Cardiothoracic Progress Note ---
Date of Encounter: 03/01/19 Time of Encounter: 07:27 - Assessment and plan (1) ST elevation myocardial infarction (STEMI) Current Visit: Yes Status: Acute The patient is recovering well from his CABG3. He developed postoperative atrial fibrillation with a controlled rate on an amiodarone drip. This is converted to normal sinus rhythm this morning. He is ambulating in the hallways without difficulty. 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 The patient will be evaluated in interventional radiology for possible left thoracentesis. The assessment and plan as outlined above was discussed with the patient and/or family members who expressed understanding and agreement. All questions were answered. Qualifiers: Involved coronary artery: right coronary artery Qualified Code(s): I21.11 - ST elevation (STEMI) myocardial infarction involving right coronary artery - Subjective Procedure(s) Performed: POD#5 S/P CABG3 Interval history: The patient remained hemodynamically stable overnight. He is ambulating in the hallways without difficulty. He has no complaints. Vital Signs, Last 4 Hours Temp Pulse Resp BP Pulse Ox 03/01/19 03:55 98.5 F 81 18 126/68 93 03/01/19 03:51 18 94 Oxgyen Flow Rate Oxygen Flow Rate (LPM) 0 Weight 02/27/19 02/28/19 03/01/19 23:59 23:59 23:59 Weight 107.5 kg 108.2 kg - Physical Examination General: Conversant, No Apparent Distress Neck: No JVD, Normal carotid pulses Cardiac: Reg Rate and Rhythm, Normal S1 and S2, No Murmur Lungs: Normal Breath Sounds (Right lung dutta), Decreased breath sounds (Left base) Neuro: Alert and responsive, No focal deficits noted Vascular: Normal capillary refill Extremities: No Clubbing, No Cyanosis, No Edema - Labs 02/28/19 01:25 02/28/19 01:25 - Imaging Chest Xray: image reviewed (No pneumothorax. Persistent left pleural effusion.) - VTE Reasons for not Prescribing Prophylaxis: Not indicated-Anticoagulated or INR therapeutic Documentation of Mechanical Device: Graduated compression elastic hosiery Consult Discharge Plan - Plan Referrals: Emmanuel Donovan MD [Partnered Physician] - 03/07/19 2:00 pm Barbie Ambrose CNP [Partnered Physician] - 03/24/19 11:00 am Ambrose Betancourt MD [Partnered Physician] - 03/17/19 1:15 pm
[2019-03-01] MEDS: Insulin LISPRO 300 UNITS/3 ML VIAL SQ SCH ×4 (07:43→21:11)
[2019-03-01] MEDS: Chlorhexidine Rinse 15 ML MOUTHWASH MM SCH ×2 (08:04→21:11)
[2019-03-01] MEDS: Furosemide 20 MG/2 ML VIAL IVP SCH (08:04)
[2019-03-01] MEDS: Pantoprazole 40 MG VIAL IVP SCH (08:04)
[2019-03-01] MEDS: Aspirin 81 MG TAB.CHEW PO SCH (08:05)
[2019-03-01] MEDS: *HR* Amiodarone 200 MG TABLET PO SCH (08:05)
[2019-03-01] MEDS: Insulin DETEMIR 100 UNIT/ML X5UNITS SQ SCH (21:11)
[2019-03-02] MEDS: *HR* OxyCODONE/APAP 5/325 TABLET PO PRN (04:15)
[2019-03-02] MEDS: *HR* Heparin 5,000 UNIT/ML VIAL SQ SCH (04:15)
[2019-03-02 07:02] VITALS: BP 120/71
--- NOTE | 2019-03-02 08:32 | Discharge Summary ---
Date of Encounter: 03/02/19 Time of Encounter: 08:32 - Discharge Diagnosis (1) ST elevation myocardial infarction (STEMI) Priority: Primary Status: Acute Qualifiers: Involved coronary artery: right coronary artery Qualified Code(s): I21.11 - ST elevation (STEMI) myocardial infarction involving right coronary artery - Hospital Course Hospital course: Mr. Wilde is a 58 year old type II diabetic, hypertensive man with hypercholesterolemia who developed sudden onset of nonradiating substernal chest pain and syncope at work. The patient was evaluated at [facility] and diagnosed with an acute STEMI. He underwent cardiac catheterization was found to have severe 3 vessel CAD including complete occlusion of his proximal RCA. He underwent PCI with RCA stent placement and was recommended for CABG to address the LAD, LCx, and distal RCA lesions. The patient had been placed upper left after his RCA stent placement and this was stopped for 7 days prior to CABG. The patient underwent CABG 3 on 02/24/2019. His postoperative course was complicated by atrial fibrillation which was treated medically with amiodarone. He had conversion to normal sinus rhythm. He also had a small to moderate left pleural effusion and underwent thoracentesis on 03/01/2019. The patient was discharged home on POD #6. - Time Spent with Patient Total time spent providing and/or coordinating discharge services: - Discharge Medications Prescriptions: New Amiodarone [Cordarone] 200 mg PO DAILY #30 tablet OxyCODONE/APAP 5/325 [Percocet 5/325 MG] 1 each PO Q4HR PRN 7 Days #28 tablet PRN Reason: Severe Pain Ticagrelor [Brilinta] 90 mg PO BID #60 tablet Continued Amlodipine Besylate 10 mg PO DAILY Aspirin [Lo-Dose Aspirin EC] 81 mg PO DAILY Cinnamon Bark [Cinnamon] 500 mg PO DAILY Dapagliflozin Propanediol [Farxiga] 5 mg PO DAILY Dulaglutide [Trulicity] 1.5 mg SQ MO Losartan Potassium 50 - 100 mg PO DAILY Metformin HCl [Metformin HCl ER] 1,000 mg PO DAILY Metoprolol Succinate [Toprol Xl] 25 mg PO DAILY Gilliam-3/Dha/Epa/Fish Oil [Fish Oil 1,000 mg Softgel] 1 cap PO DAILY Rosuvastatin Calcium 10 mg PO HS Home Medications: Amlodipine Besylate 10 mg PO DAILY 02/17/19 [History] Aspirin [Lo-Dose Aspirin EC] 81 mg PO DAILY 02/17/19 [History] Cinnamon Bark [Cinnamon] 500 mg PO DAILY 02/17/19 [History] Dapagliflozin Propanediol [Farxiga] 5 mg PO DAILY 02/17/19 [History] Dulaglutide [Trulicity] 1.5 mg SQ MO 02/17/19 [History] Losartan Potassium 50 - 100 mg PO DAILY 02/17/19 [History] Metformin HCl [Metformin HCl ER] 1,000 mg PO DAILY 02/17/19 [History] Metoprolol Succinate [Toprol Xl] 25 mg PO DAILY 02/17/19 [History] Gilliam-3/Dha/Epa/Fish Oil [Fish Oil 1,000 mg Softgel] 1 cap PO DAILY 02/17/19 [History] Rosuvastatin Calcium 10 mg PO HS 02/17/19 [History] Amiodarone [Cordarone] 200 mg PO DAILY #30 tablet 03/02/19 [Rx] OxyCODONE/APAP 5/325 [Percocet 5/325 MG] 1 each PO Q4HR PRN 7 Days #28 tablet 03/02/19 [Rx] Ticagrelor [Brilinta] 90 mg PO BID #60 tablet 03/02/19 [Rx] Allergies/Adverse Reactions: Allergy/AdvReac Type Severity Reaction Status Date / Time No Known Allergies Allergy Verified 02/17/19 21:13 Date of admission: 02/17/19 18:30 Primary care physician: PCP NONE Consults: 02/17/19 20:44 Consult to Nurse Navigator [CONS] Routine Comment: 02/24/19 11:42 Consult to Cardiac Rehabilitation-Phase1 [CONS] Routine Comment: Reason for Consult: Post open heart Call Completed: Yes Consult to Data Capture Specialist [CONS] Routine Reason for SW Consult: open heart 02/25/19 09:05 Consult for Pharmacy Education [CONS] Routine Reason for Consult: Post-Op Heart Call Completed: Yes Consult to Occupational Therapy [CONS] Routine Comment: Evaluate, develop and implement POC Reason for Consult: Post-Op Heart Does patient have active BEDREST order?: No Is patient medically & hemodynamically stable?: Yes Consult to Physical Therapy [CONS] Routine Comment: Evaluate, develop and implement POC Reason for Consult: Post open heart Does patient have active BEDREST order?: No Is patient medically & hemodynamically stable?: Yes 03/01/19 07:29 Consult to Interventional Radiology [CONS] Routine Consulting Provider: Radiology Interventional Cols Reason for Consult: Evaluate for possible left thoracentesis Call Completed: No Procedure(s) Performed: 1. Cardiac catheterization with RCA stent placement performed 02/17/2019. 2. CABG 3 (CODY to LAD, SVG to OM1, SVG to PLB) performed 02/24/2019. 3. Left thoracentesis performed 03/01/2019. Discharging clinician: Thuy Nicholas Anticipated date of discharge: 03/02/19 Physical Examination Vital Signs, Last 4 Hours Temp Pulse Resp BP Pulse Ox 03/02/19 07:15 82 03/02/19 06:59 97.8 F 81 16 120/71 96 General: Conversant, No Apparent Distress HEENT: Atraumatic, Normocephaly, Trachea midline Neck: No JVD, Normal carotid pulses Cardiac: Reg Rate and Rhythm, Normal S1 and S2, No Murmur Lungs: Normal Breath Sounds, No Wheeze, Rales, Rhonchi Neuro: Alert and responsive, No focal deficits noted Vascular: Normal capillary refill Abdomen: Soft, Non-tender Skin: No rashes noted on visualized skin Extremities: No Clubbing, No Cyanosis, No Edema - Patient Status Disposition: Home, Self-Care Condition: Serious Functional capacity at discharge: independent ambulation Overall status at discharge: patient is progressing back to baseline - Discharge Instructions Follow Up With: Emmanuel Donovan MD [Partnered Physician] - 03/07/19 2:00 pm Barbie Ambrose CNP [Partnered Physician] - 03/24/19 11:00 am Ambrose Betancourt MD [Partnered Physician] - 03/17/19 1:15 pm - Diet and Activity Activity: sternal precautions, no driving for four weeks, no lifting greater than 10 pounds for eight weeks Diet: diabetic diet, low fat, low cholesterol [facility] Aspirin Cont/Prescribed at DC: Yes Beta José Cont/Prescribed at DC: Yes Statin Cont/Prescribed at DC: Yes ANTHONY/ARB Cont/Prescribed at DC: Not indicated (LVEF greater than 55%) - VTE Reasons for not Prescribing Prophylaxis: Not indicated-Anticoagulated or INR therapeutic Documentation of Mechanical Device: Graduated compression elastic hosiery
[2019-03-02] MEDS: Insulin LISPRO 300 UNITS/3 ML VIAL SQ SCH (08:37)
[2019-03-02] MEDS: Chlorhexidine Rinse 15 ML MOUTHWASH MM SCH (08:38)
[2019-03-02] MEDS: Pantoprazole 40 MG VIAL IVP SCH (08:38)
[2019-03-02] MEDS: Furosemide 20 MG/2 ML VIAL IVP SCH (08:38)
[2019-03-02] MEDS: *HR* Amiodarone 200 MG TABLET PO SCH (08:38)
[2019-03-02] MEDS: Aspirin 81 MG TAB.CHEW PO SCH (08:38)
== END 2019-03-02 11:09 | disposition home or self-care (01) | DRG 232 ==
LOC: EMEROOARM 17:35 → SUATTDRO 18:30 → ICNU 18:30 → 2NENU 02-19 15:22 → ICNU 02-24 10:36 → 2NNU 02-25 13:23
PROVIDERS: ADMIT Internal Medicine Cardiovascular Disease; ATTEND Internal Medicine